=== PATIENT | female | born 1965 | race Caucasian/White ===

== ENCOUNTER 2024-07-28 08:54 | Outpatient (AMB) | payer OTHER, SELFPAY ==
--- NOTE | 2024-07-28 08:55 | A.OFFVIS_ITS ---
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 The patient did undergo left total knee replacement surgery in [place] approximately 2 years ago. She reports minimal discomfort in her right knee. She describes her left knee pain as sharp and severe in nature, 10/10. Her left knee pain has gotten worse over the last few years in spite of continued non operative treatments. She has tried Tylenol and anti-inflammatory medicines which gave her minimal relief. She has also had both cortisone and viscosupplementation injections which gave her only mild relief. The patient has difficulty walking even short distances because of her pain. At this point her right knee pain is interfering with her activities of daily living and her ability to sleep well through the night. Allergies sulfamethoxazole [From Bactrim] Allergy (Severe, Verified 07/28/24 09:21) Anaphylaxis trimethoprim [From Bactrim] Allergy (Severe, Verified 07/28/24 09:21) Anaphylaxis Penicillins Allergy (Unknown, Verified 07/28/24 09:21) Unknown gluten Adverse Reaction (Unknown, Verified 07/28/24 09:21) Unknown Medication List - Last Reconciled 07/29/24 by Bryn Amado MD acetaminophen ER (Tylenol Arthritis Pain) 650 mg PO Q12H albuterol sulfate 90 mcg/actuation inhalation amlodipine 2.5 mg PO DAILY estradiol 10 mcg vaginal 2XW gabapentin mg PO meloxicam 15 mg PO DAILY trazodone 50 mg PO BEDTIME valacyclovir mg PO Physical Exam Vital Signs: BMI result Body Mass Index 24.6 Const Other: Well-nourished well-developed very friendly female awake alert and oriented x3 in no acute distress Extrem Other: Bilateral lower extremity examination shows good capillary refill, no skin lesions noted, normal sensation light touch Right knee examination shows a minimal effusion, palpable crepitus with range of motion, pain with range of motion, range of motion from -3 degrees to 115 degrees, no instability Results Reviewed Results Reviewed: X-rays of the patient's right knee show end-stage degenerative joint disease with grade 4 dojd-ej-[id number] arthritis, subchondral sclerosis, osteophyte formation, no acute bony abnormalities Assessment & Plan Assessment & Plan (1) Arthritis of right knee: Code(s): M17.11 - Unilateral primary osteoarthritis, right knee Category: Medical Plan Presents with progressively worsening right knee pain due to end-stage degenerative joint disease. I had a lengthy discussion with the patient regarding the treatment options. At this point she has failed continued non operative treatments. The risks and benefits of right total knee replacement surgery were discussed at length with the patient. The patient is interested in proceeding with surgery. She will contact my office to pick a surgery date. I will see her back prior to her surgery to answer any final questions that she might have. She will call me prior to that time should any questions or concer ns arise. Mrs. Ugalde Orders: Orders XR knee RT 3V 07/28/24 M25.561 - Pain in right knee Coding Level of Care Code New Pt Level 3 (78219) Complex EM visit Add On G2211 Diagnoses Arthritis of right knee M17.11
[2024-07-28 09:22] VITALS: BMI 24.6
== END 2024-07-28 09:56 | disposition home or self-care (01) ==
PROVIDERS: Visit Provider Orthopaedic Surgery
DX: M17.11 Unilateral primary osteoarthritis, right knee (principal)
CPT/HCPCS: 99203; G2211

== ENCOUNTER 2024-07-28 10:07 | Outpatient (REF) | payer OTHER, SELFPAY ==
--- OUTSIDE RECORDS SUMMARY | 2024-07-29 10:11 | XMS_ITS | Continuity of Care Document ---
Author Organization [facility] Address [address] [place] [address]- Care Team Providers Care Dining Room Attendant Cafeteria Name Role Phone Oc De La O MD Primary Care Physician En[place] [facility] [place](s): 06/08/24 - 07/08/24 [facility] [address] [place], [place] [address] Encounter Type: Triage Allergies, Adverse Reactions, Alerts Substance Criticality Severity Reaction Reaction Severity Status penicillin Active Bactrim anaphylaxis type of reaction Active Glutens Active Immunizations Given and Recorded Vaccine Date Status Refusal Reason tetanus/diphtheria/pertussis, acel(Tdap) 1 03/31/24 Given influenza virus vaccine, inactivated 2 06/24/22 Gi wei influenza virus vaccine, inactivated 06/13/21 Arturo rded influenza virus vaccine, inactivated 3 06/12/20 Re corded influenza virus vaccine, inactivated 09/25/19 Arturo rded influenza virus vaccine, inactivated 4 06/04/18 Gi wei influenza virus vaccine, inactivated 08/19/17 Arturo rded influenza virus vaccine, inactivated 5 06/02/16 Gi wei influenza virus vaccine, inactivated 6 08/20/15 Gi wei influenza virus vaccine, inactivated 7 04/16/12 Gi wei influenza virus vaccine, inactivated 8 05/17/10 Gi wei [id number] bivalent booster vax 05/16/22 Recorded zoster vaccine, inactivated 10/08/21 Recorded zoster vaccine, inactivated 06/19/21 Recorded SARS-CoV-2 (COVID-19) mRNA-1273 vaccine 07/02/21 R ecorded SARS-CoV-2 (COVID-19) Ad26 vaccine 11/23/20 Record ed Tet/Diphth/Acel, Pertussis (oldterm) 10/27/13 Give n Typhim (oldterm) 10/27/13 Given Hepatitis A Vaccine (oldterm) 9 10/27/13 Given Hepatitis A Vaccine (oldterm) 10 06/17/00 Given diphtheria-tetanus toxoids (DT) 11 10/08/09 Given Influenza Vaccine (oldterm) 12 05/29/09 Given Influenza Virus Vaccine (oldterm) 13 07/21/08 Give n Influenza Inactive (IM) (oldterm) 07/15/07 Given tetanus-diphtheria toxoids (Td) 11/19/03 Given tetanus-diphtheria toxoids (Td) 06/17/00 Given 1Result Comment: [id number] given w/out incident 2Result Comment: [id number] given w/ out incident 3Result Comment: done @ [facility] 4Result Comment: [06/07/2018] given w/out incident [facility]: [id number] 5Result Comment: [06/02/2016] pt. tolerated inj. without complications...[place] 6Admin Note: done @ [facility], form received 7Admin Note: vis sheet given. 8Admin Note: done @ [facility] 9Admin Note: hep A #2 10Admin Note: hep A #1 11Admin Note: [facility] 12Admin Note: given w/o incident per dr de la o 13Admin Note: [facility] Medications acetaminophen 650 mg oral tablet, extended release 1 tablet = 650 mg, By Mouth, Every 8 hours, PRN Pain , Moderate, # 30 tablet, 0 Refills, Maintenance, 09/18/23 9:50:00 AM EST, ER Tablet, Partial fill upon patient request if the prescription is for a schedule II opioid drug. Start Date: 09/18/23 Stop Date: 09/28/23 Status: Ordered Quantity: 30.0 Unit: tablet Repeat number: 1 Albuterol (Eqv-ProAir HFA) 90 mcg/inh inhalation aerosol 2 puffs, Inhalation, 4 times a day, PRN NEEDED FOR WHEEZING, # 8.5 Gm, 5 Refills, Maintenance, 09/24/23 1:04:00 PM EST, [facility], 18, INHALE 2 PUFFS BY MOUTH FOUR TIMES A DAY NEEDED FOR WHEEZING, 169, cm, 09/18/23 9:43:00 EST, Height, 75.4, kg, 01/18/23 5:33:00 EDT, Dry Weight Start Date: 09/24/23 Status: Ordered Quantity: 8.5 Unit: g Repeat number: 1 amLODIPine 2.5 mg oral tablet 1 tablet, By Mouth, Daily, # 90 tablet, 1 Refills, Maintenance, 03/10/24 7:34:00 PM EDT, [facility] # [facility], 169, cm, 01/13/24 17:20:00 EDT, Height, 75.4, kg, 01/18/23 5:33:00 EDT, Dry Weight Start Date: 03/10/24 Stop Date: 09/06/24 Status: Ordered Quantity: 90.0 Unit: tablet Repeat number: 2 Centrum Silver Ultra Women's By Mouth, Daily, 0 Refills, Maintenance, 09/18/23 9:51:00 AM EST, Partial fill upon patient request if the prescription is for a schedule II opioid drug. Start Date: 09/18/23 Status: Ordered Repeat number: 1 estradiol 10 mcg vaginal tablet See Instructions, 1 tablet Vaginally twice a week, 0 Refills, Maintenance, 03/31/24 8:08:00 AM EDT, Partial fill upon patient request if the prescription is for a schedule II opioid drug. Start Date: 03/31/24 Status: Ordered Repeat number: 1 gabapentin 400 mg oral capsule 400 mg, 1, capsule, By Mouth, 2 times a day, # 60 capsule, Refills 0, Maintenance, 09/18/23 9:49:00 AM EST, Partial fill upon patient request if the prescription is for a schedule II opioid drug. Start Date: 09/18/23 Stop Date: 10/18/23 Status: Ordered Quantity: 60.0 Unit: capsule Repeat number: 1 Glucosamine Chondroitin Advanced oral tablet 0 Refills, Maintenance, 09/18/23 9:51:00 AM EST, Partial fill upon patient request if the prescription is for a schedule II opioid drug. Start Date: 09/18/23 Status: Ordered Repeat number: 1 meloxicam 15 mg oral tablet 1 tablet = 15 mg, By Mouth, Daily, with food, # 30 tablet, 0 Refills, Maintenance, 09/18/23 9:49:00 AM EST, Tablet, Partial fill upon patient request if the prescription is for a schedule II opioid drug. Start Date: 09/18/23 Stop Date: 10/18/23 Status: Ordered Quantity: 30.0 Unit: tablet Repeat number: 1 omeprazole 20 mg oral enteric coated capsule 1 capsule = 20 mg, By Mouth, 2 times a day, 30 min before a meal, # 60 capsule, 0 Refills, Maintenance, 03/16/23 7:26:00 PM EDT, Partial fill upon patient request if the prescription is for a scheduleII opioid drug. Start Date: 03/16/23 Status: Ordered Quantity: 60.0 Unit: capsule Repeat number: 1 traZODone 50 mg oral tablet 1, tablet, By Mouth, Daily at bedtime, # 90 tablet, Refills 1, Tot. Refills 1, Maintenance, 247:00:00 AM EDT, Route to Pharmacy Electronically, [facility] # [facility], 169, cm, 01/13/24 17:20:00 EDT, Height, 75.4, kg, 01/18/23 5:33:00 EDT, Dry Weight Start Date: 03/08/24 Status: Ordered Quantity: 90.0 Unit: tablet Repeat number: 2 Twinrix Preservative-Free 720 units-20 mcg/mL intramuscular suspension 1 mL, Intramuscular, Once, repeat in 7 and 21 days (accelerated regimen), # 1 each, 3 Refills, SoftStop, 04/04/24 12:40:00 PM EDT, Suspension, [facility] # [facility], Partial fill upon patient request if the prescription is for a schedule II opioid drug., 1 mL Intramuscular Once,Instr:repeat in 7 and 21 days (accelerated regimen), 169, cm, 03/31/24 8:05:00 EDT, Height, 73, kg, 03/31/24 8:05:00 EDT, Dry Weight Start Date: 04/04/24 Status: Ordered Quantity: 1.0 Unit: each Repeat number: 4 valACYclovir 500 mg oral tablet 1, tablet, By Mouth, Every 8 hours, # 15 tablet, Refills 6, Tot. Refills 6, Maintenance, 09/18/23 9:48:00 AM EST, Route to Pharmacy Electronically, [facility] # [facility], 169, cm, 09/18/23 9:43:00 EST, Height, 75.4, kg, 01/18/23 5:33:00 EDT, Dry Weight Start Date: 09/18/23 Stop Date: 10/23/23 Status: Ordered Quantity: 15.0 Unit: tablet Repeat number: 7 Vitamin B12 1000 mcg oral tablet 1 tablet = 1,000 mcg, By Mouth, Daily, # 30 tablet, 0 Refills, Maintenance, 03/31/24 8:07:00 AM EDT,Tablet, Partial fill upon patient request if the prescription is for a schedule II opioid drug. Start Date: 03/31/24 Status: Ordered Quantity: 30.0 Unit: tablet Repeat number: 1 Vitamin D3 1000 intl units oral capsule 1 capsule = 25 mcg, By Mouth, Daily, 0 Refills, Maintenance, 09/18/23 9:51:00 AM EST, Partial fill upon patient request if the prescription is for a schedule II opioid drug. Start Date: 09/18/23 Stop Date: 10/18/23 Status: Ordered Repeat number: 1 zinc (as acetate) 25 mg oral capsule 1 capsule = 25 mg, By Mouth, Daily, on an empty stomach 1 hour before or 2 hours after eating, # 30capsule, 0 Refills, Maintenance, 03/31/24 8:07:00 AM EDT, Capsule, Partial fill upon patient requestif the prescription is for a schedule II opioid drug. Start Date: 03/31/24 Stop Date: 04/30/24 Status: Ordered Quantity: 30.0 Unit: capsule Repeat number: 1 Problem List Condition Confirmation Course Effective Dates Status H ealth Status Informant Allergic rhinitis Confirmed Active Cervical spondylosis Confirmed Active Chronic eczema Confirmed 07/06/12 Active Chronic low back pain Confirmed Active ENDOMETRIOSIS Confirmed 06/2008 Active Essential hypertension Confirmed Active FH: Breast cancer (mom) Confirmed Active FH: Cancer (type ?) grandparents Confirmed Active FH: Diabetes mellitus (dad) Confirmed Active FH: Glaucoma (dad) Confirmed Active Generalized anxiety disorder Confirmed 2006 Active H/O cold sores Confirmed Active History of herpes labialis Confirmed Active History of arthroplasty of left knee Confirmed 01/06/23 Active Insomnia Confirmed Active Irritable bowel syndrome Confirmed Active Social History Social History Type Response Smoking Status Never (less than 100 in lifetime) entered on: 12/22/22 Sex Sex Representation Female (finding) Patient Care team information Care Team Personnel Name: Miguel Angel Townsend RN Position: [facility] RN Member Role: Primary Care Nurse Name: Oc De La O MD Position: [facility] Physician - Primary Care Member Role: PCP Address: [address] [place] [address] [facility] [address] Telecom: Name: Renetta Welch RN Position: [facility] RN Member Role: Primary Care Nurse Care Team Related Persons Name: ILYA NOVA Insurance Providers Guarantor name: MARYLOU NOVA Health Plan Information #: 1 Payer: [employer] Member Number: NA Policy Number: NA Group Number: [id number]
--- OUTSIDE RECORDS SUMMARY | 2024-07-29 10:11 | XMS_ITS ---
Author Organization [facility] Address [address] [place] [address] Care Team Providers Care Compensator Name Role Phone Oc Carvalho MD Primary Care Provider Clarissa Gomes [phone] REASON FOR VISIT buy [facility] #[phone] Encounters Encounter Location Date Provider Diagnosis [facility] [address] [place] [address] 08/06/2023 Clarissa Loyola Plan Of Treatment No Information Progress Notes * Lindsay UGALDEOB: 5 (58 yo F)Acc No.[id number]:08/06/2023 Patient:?Dayana Ugalde :1965???Age:58 Y???Sex:Female Address:[address] , [place], [address] * true * Date:? Generated for Printi cipriano/Joseluis/eTransmitting on:?07/29/2024 10:11 AM EST
--- OUTSIDE RECORDS SUMMARY | 2024-07-29 10:12 | XMS_ITS | Data Portability ---
Author Organization [facility], [facility] Address [address] [place] [address] Care Team Providers Care Integrated Program Teacher Name Role Phone FLORENCE WADDELL Primary Care Provider [phone] Assessment Encounter Date Assessment Date Assessment LastModified by Organization Details LastModified Time 07/05/2021 07/05/2021 Dayana is a 56-year-old female with bilateral knee arthritis. We discussed the diagnosis and treatment options. Interestingly most of her symptoms are laterally based and the majority of her arthritis is medially based. She does have some significant patellofemoral arthritis as well. We discussed the diagnosis and treatment options of her knee arthritis. She seems to be responding pretty well to nonoperative treatment. I delineated all this. She can continue nonoperative treatment for now. When she is ready for surgery she will call us to schedule that. She is planning to do some skiing this winter. She will follow-up with me on as-needed basis. Total visit time was 30 minutes in length including bjyb-ui-waal and abt-qhjt-pp-face time. [email or web address] Not available 07/05/2021 12:21:02 Plan of Treatment Reminders Order Date Submit Date Provider Last Modified By Organization Details Last Modified Time Details Appointments None record ed. Lab None record ed. Referral None record ed. Procedures None record ed. Surgeries None record ed. Imaging XR, knee, 3 view 021 07/05/20 21 [email or web address] Colon [facility], [address] [place] [address], [phone], 08:19:23 Medication Orders None record ed. Patient TargetsNo targets recorded. Patient InstructionsNo instructions recorded. Reason for Referral None Reported. Results Created Date Observation Date Name Description Value Unit Range Abnormal Flag Note LastModifiedBy Organization Detail LastModifiedTime 07/05/20 21 bilat knees No observ ation record ed. [email or web address] [facility] [address] [place], [address] 07/05/2021 12:03:03 07/05/20 21 XR, knee, 3 view No observ ation record ed. [email or web address] [address], [address], 07/05/2021 12:02:33 Result Notes None recorded. Procedures Surgical History Date Name Laterality Status Provider Name and Address Organization Details Recorded Time partial repair of rotator cuff completed Hawa Mosescristopher [facility] 07/05/2021 11:30:31 Knee Surgery completed Hawa Mosescristopher [facility] 07/05/2021 11:30:36 Imaging Results Imaging Date Name Status LastModified by Organiz ation Details LastModified Time 07/05/2021 bilat knees [email or web address] [address] [place], [address] 07/05/2021 12:03:03 07/05/2021 XR, knee, 3 view completed [email or web address] [address], [address], 07/05/2021 12:02:33 Procedure Notes None recorded. Medical Equipment None Reported. Allergies Allergen ID Allergen Name Allergen Category Reaction Reaction Severity Criticality Documentation Date Start Date Code Code System Note Provider Name and Address Organization Details Recorded Time penicilla mine medicatio n Not available Not available Not available 07/05/2021 7975 RxNorm Hawa Mosescristopher angeles [facility] 11:30:11 [id number] Substance with sulfonami de structure and antibacte rial mechanism of action (substanc e) medicatio n Not available Not available Not available 07/05/2021 35262 8003 SNOMED Hawa Mosescristopher ang[place] [facility] 11:30:14 Medications Name Sig Start Date Stop Date Status Note LastModified by Organization Details LastModified Time cyclobenzapri ne 10 mg tablet take 1 tablet by mouth twice a day if needed for muscle spasm 07/05 completed Not Available Not Available Not Available doxycycline hyclate 100 mg capsule active Not Available Not Available N ot Available trazodone 50 mg tablet 07/05 completed Not Available Not Available Not Available gabapentin 400 mg capsule active Not Available Not Available Not Available valacyclovir 500 mg tablet active Not Available Not Availabl e Not Available tramadol 50 mg tablet 07/05 completed Not Available Not Available Not Available omeprazole 20 mg capsule,delay ed release active Not Available Not Available N ot Available gabapentin 100 mg capsule active Not Available Not Available Not Available Vitals Date Recorded Body temperature Body height Body mass index (BMI) Body weight Provider Name and Address Organization Details Last Updated DateTime 07/05/2021 97 [degF] 170.18 cm 24.4 kg/m2 43391.41 g Hawa Amina [facility] 07/05/2021 11:29:57 Social History Question Answer Notes LastModified by Organizat ion Details LastModified Time Tobacco Smoking Status Never Smoker [facility] 07/05/2021 11:32:26 What Is Your Level Of Alcohol Consumption? Occasional Information not available 07/05/2021 Do You Use Any Illicit Or Recreational Drugs? No Information not available 07/05/2021 Has Tobacco Cessation Counseling Been Provided? No Information not available 07/05/2021 Do You Or Have You Ever Used Any Other Forms Of Tobacco Or Nicotine? No Information not available 07/05/2021 Sex: Unknown Functional Status None recorded. Mental Status None recorded. Family History Relationship Description Onset Age of this Age Resolved Age Notes LastModified by Organization Details LastModified Time Father No current problems or disability [email or web address] Not available 07/05 11:31:21 Mother No current problems or disability [email or web address] Not available 07/05 11:31:21 Medical History Condition Response Coronary Artery Disease N Dyslipidemia N Gout N Artificial Joints N Thyroid Problems N Lung Disease N Depression N Pacemaker N Anemia N Back Pain N Hearing Impairment N Anesthesia Complications N Heart Attack (OR) N Headaches/Migraines N Deep Vein Thrombosis N Anxiety Disorder N Diabetes N Bleeding Disorder N Arthritis N Seizures/Epilepsy N Cardiac Stent N Blood Clot N Tuberculosis N AIDS/HIV N Inflammatory Bowel Disease N Acid Reflux (GERD) N Cancer N Stroke N Substance Abuse N Peripheral Vascular Disease N Asthma/COPD N Wears Glasses/Contacts N Hepatitis N Heart Disease N Organ Transplant N Rheumatoid Arthritis N Pulmonary Embolism N Fibromyalgia N Hypertension N Stomach Ulcer N Osteoporosis N Kidney Disease N Gynecological HistoryNo gynecological history recorded. Obstetrics History GPAL:G 0 P 0 0 0 0 Immunizations Vaccine Type Date Status Note Provider Nam e and Address Organization Details Recorded Time COVID-19 vaccine, vector-nr, rS-ChAdOx1, PF, 0.5 mL 11/28/2020 completed Hawa Huynh [facility] 07/05/2021 11:31:34 Past Encounters Encounter ID Performer Location Encounter Start Date Encounter Closed Date Diagnosis/Indication Diagnosis SNOMED-CT Code Diagnosis ICD10 Code [id number] ERIKA NEWBERRY MD [address] [address] 07/05/2021 11:14:23 07/05/2021 12:35:58 Bilateral osteoarthritis of knees [id number] 05487 M17.0 Health Concerns Section Related Observation LastModified by Organization Detai ls LastModified Time None Recorded Concern Status LastModified by Organization Details LastModified Time None Recorded Advance Directives Directive None Recorded Payers Encounter Date Sequence Insurance Name Policy Number Policy Alston Covered Member ID Alston Member ID Guarantor Name 07/05/2021 1 [employer] (EPO) [id number] Dayana Ugalde [id number] Dayana Ugalde Notes Date Note Type Note Provider Name a nd Address Organization Details Recorded Time 07/05/2021 text/html Dayana is a 56-year-old female I am seeing for the first time. She is here for her bilateral knees. Right is greater than left. She has had a longstanding history of knee pain. She is being treated by orthopedic surgeon closer to her home. She been getting injections. She is having multiple rounds of both gel and cortisone. She is responded well to the Euflexxa. She had a Synvisc 1 injection which caused significant synovitis. She lost about 30 pounds over the past 2 years to help lessen the knee pain. She is taking Tylenol. She is using a brace. Most of her pain is on the lateral aspect of her knee. No real pain on the medial aspect of her knee. However she has responded well to intra-articular injections. She enjoys skiing. Clinical summary Working via [employer] Denies VTE Denies tobacco use Denies diabetes lives with her ARLENE NEWBERRY MD [address] [place] [address], [phone], [facility] 07/05/2021 12:22:44 OBGyn Episode No OBEpisode recorded.
--- OUTSIDE RECORDS SUMMARY | 2024-07-29 10:12 | XMS_ITS ---
[facility] Address [address] [place] [address] Care Team Providers Care Microwave Supervisor Name Role Phone Oc Carvalho MD Primary Care Provider Clarissa Gomes Unavailable [phone] Allergies Allergen (clinical drug ingredient) Drug/Non Drug Allergy documented on EMR Reaction Allergy Type Onset Date Status sulfamethoxazole / trimethoprim Bactrim throat closes Drug Allergy Active Penicillin Unknown Drug Allergy Active REASON FOR VISIT pt states last pcp visit 05/04/2023, Foot pain Medications Medication SIG (Take, Route, Frequency, Duration) Notes Start Date End Date Status amLODIPine Besylate 2.5 MG 1 tablet Orally Once a day Active Gabapentin 800 MG 1 capsule Orally Onc e a day Active traZODone HCl 50 MG 1 tablet at bedtime as needed Orally Once a day for 30 day(s) Active Aleve 220 MG Orally Not-Bull ing Pregabalin 75 MG 1 capsule Orally Twi ce a day Not-Taking Tylenol Active Meloxicam Active Social History Tobacco Use: Social History Observation Description Date Details (start date - stop date) Never Smoker NA - NA Tobacco Use/Smoking Question Answer Notes Are you a: nonsmoker Additional Findings: Tobacco Non-User Current no n-smoker Alcohol Screen Question Answer Notes Did you have a drink containing alcohol in the p ast year? Yes Points 0 Interpretation Negative Tobacco use other than smoking: Question Answer Notes Are you an other tobacco user? 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 Assessments Encounter Date Diagnosis (ICD Code) Assessment Notes Treatment Notes Treatment Clinical Notes Section Notes 08/06/2023 Anupam's neuroma of right foot (ICD-10 - G57.61) Plan Of Treatment Next Appt Details Follow Up: prn, Reason: Progress Notes * Lindsay UGALDEOB: 5 (58 yo F)Acc No.[id number]:08/06/2023 Progress Note Patient:?Dayana Ugalde Provider:?Clarissa Loyola DPM :1965???Age:58 Y???Sex:Female D ate:08/06/2023 Address:[facility] [address] [facility] Pcp:Oc Carvalho MD Subjective: * Chief Complaints: * ???Pt states last pcp visit 05/04/2023Foot pain * HPI: ???Foot Pain:?Nature:?burning, radiating, shooting, tingling.?Location:?Forefoot, RIGHT.?Duration:?several weeks.?Onset:?unknown.?Course:?resolved.?Aggrevated:?any pressure.?Treatments:?rest/alter normal daily activity, massage , padding.? * ROS:?General/Constitutional:?Nausea?denies.?Vomiting?denies.?Hunger Thirst?denies.?Loss appetite?denies.?Chills?denies.?Fatigue?denies.?Fever?denies.?Night Sweats?denies.?Unexplained weight loss?denies.?Unexplained weight gain?denies.?HEENTM:?Dentures?denies.?Dizziness?denies.?Glasses/contacts?admits.?Retinopathy?de nies.?Blurred/double vision?denies.?TMJ?denies.?Discharge/drainage?denies.?Implants?denies.?Sore throat?denies.?Dental implants?denies.?Hard of hearing ?denies.?Difficulty chewing/swallowing/speaking?denies.?Nose bleeds?denies.?Sore mouth?denies.?Respiratory:?On Oxygen?denies.?Pneumonia/pleurisy?denies.?Bronchitis?denies.?Emphysema?denies.?C oughing?denies.?Cough blood?denies.?Shortness of breath?denies.?Wheezing?denies.?Cardiovascular:?Pacemaker?denies.?MVP?denies.?WPW?denies.?CHF?denies.?Heart attack?denies.?Septal defect?denies.?Rapid beat?denies.?Chest pain ?denies.?Atrial Fib.?denies.?Murmur/Palpitations?denies.?Gastrointestinal:?Hemorrhoids?denies.?Stomach/Abdominal pain?denies.?Dark blood stool?denies.?Irritable bowel ?denies.?Constipation?denies.?Diarrhea?denies.?Hematology:?Swelling?denies.?Clots?denies.?Varicose Veins?denies.?Bruising?denies.?Bleeding problem?denies.?Genitourinary:?Blood urine?denies.?Frequent/Painfu/urination/bladder control?denies.?Kidney stones?denies.?Infection (UTI)?denies.?Nephropathy?denies.?sex trans dis (STD)?denies.?Prostate?denies.?Musculoskeletal:?Hammertoes?denies.?Bunions?denies.?Back Pain?admits.?Muscle Cramps/ Resting?denies.?Muscle cramps / walking?admits.?Generalized aches and pains?admits.?Weakness?denies.?Integ.:?Aguilar?denies.?Scars?denies.?Corns/calluses?denies.?Ingrown nails?denies.?Painful nails?denies.?Open Sores?denies.?Rashes?denies.?Neurologic:?Difficulty sleeping?admits.?Brain disorder?denies.?Numbness?admits.?Balance trouble?denies.?Confusion?denies.?Fainting/blackouts?denies.?Tingling?admits.?Tr emors?denies.? * Medical History:? * Surgical History:?left shoul mao rotator 4 yrs agoknee surgery, left 20 yrs agohysterectomy 2 yrs agoleft knee replacement 12/2022 * Hospitalization/Major Diagno stic Procedure:?No Hospitalization History. * Family History:?Mother: dece ased, foot problems, diagnosed with Family history of arthritis, Diabetic - NIDDM.?Father: , foot problems, diagnosed with Diabetic - NIDDM.?Spouse: alive.? * Social History:?Tobacco Use:?Tobacco Use/Smoking?Are you a:?nonsmoker ?Additional Findings: Tobacco Non-User?Current non-smoker ?Tobacco use other than smoking?Are you an other tobacco user??No ???Drugs/Alcohol:?Drugs?Have you used drugs other than those for medical reasons in the past 12 months??No ?Alcohol Screen?Did you have a drink containing alcohol in the past year??Yes ?Points?0 ?Interpretation?Negative ???Miscellaneous:?Caffeine: yes, frequency:, 1-2 cups per day. ?Exercise: yes, ski, hike, scuba dive, snow shoe, wake board. ?Marital status: . 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 * Medications:?TakingamLODIPin e Besylate 2.5 MG Tablet 1 tablet Orally Once a dayTylenol Meloxicam traZODone HCl 50 MG Tablet 1 tablet at bedtime as needed Orally Once a dayGabapentin 800 MG Tablet 1 capsule Orally Once a dayTaking amLODIPine Besylate 2.5 MG Tablet 1 tablet Orally Once a dayTaking Tylenol Taking Meloxicam Taking traZODone HCl 50 MG Tablet 1 tablet at bedtime as needed Orally Once a dayTaking Gabapentin 800 MG Tablet 1 capsule Orally Once a dayNot-Taking/PRNPregabalin 75 MG Capsule 1 capsule Orally Twice a dayAleve 220 MG Tablet Orally Medication List reviewed and reconciled with the patientNot- Taking/PRN Pregabalin 75 MG Capsule 1 capsule Orally Twice a dayNot-Taking/PRN Aleve 220 MG Tablet Orally Medication List reviewed and reconciled with the patient * Allergies:?Bactrim: throat c losesPenicillinyes[Allergies Verified] Objective: * Vitals:?Ht: 5 ft 7 in, Wt: 1 50, BMI:23.49, Shoe size: 9. * Examination: ???General Examination: ?GENERAL APPEARANCE:?Reveals a pleasant, alert, well-nourished, well- developed, well hydrated individual, who demonstrates proper attention to hygiene/body habitus, and is in no acute distress, Pt serves as own?historian for office visit today.?ORIENTED:?person, place, and time.?Neurological: ?SENSORY:?Neurological exam reveals intact sensorium, pain sensation normal, vibration sensation intact, pinprick sensation is normal in the lower extremities, Pt denies, anesthesia, burning, paresthesia, tingling, B/L.?DEEP TENDON REFLEXES:?Achilles, 2/4, B/L.?Vascular: ?DP PULSES:?3/4, B/L.?PT PULSES:?3/4, B/L.?CAPILLARY FILL TIME:?immediate, all digits, B/L.?SKIN TEMPERTURE GRADIENT OF THE LOWER EXTERMITIES:?warm to cool, proximal to distal, B/L.?HAIR GROWTH/TEXTURE/ELASTICITY/TURGOR:?normal, B/L.?PIGMENTATION:?normal, B/L.?EDEMA:?absent, B/L.?Dermatologic: ?SKIN FINDINGS:?Skin exam reveals normal texture, elasticity, and turgor. There are no masses. The interspaces are clear.?Orthopedic: ?MUSCLE STRENGTH:?5/5 all groups in a symmetrical fashion , B/L.?FOOTWEAR:?fair condition, OT were inspected and noted to be worn , in fair condition but giving proper support at the present time.?Neuroma Pain: ?PALPATION:?No Pain with direct palpation of the intermetatarsal space, No Pain with lateral compression of metatarsals, positive Sabra's click, 2nd interspace, 3rd interspace, RIGHT.? Assessment: * Assessment: 1.?Bo's neuroma of right foot - G57.61 (Primary), Acute problem, Uncomplicated (3)? Plan: * Treatment: * Procedure Codes:? * Preventive Medicine:? ??Counseling:?Discussion:?-13: Office or other outpatient visit for the evaluation and management of an established patient, which required a medically appropriate history and/or examination and LOW level of DECISION MAKING for: 1 STABLE ACUTE UNCOMPLICATED PROBLEM, 2 OR MORE MINOR PROBLEMS, OR 1 STABLE CHRONIC PROBLEM, THAT POSE(S) A LOW RISK FOR MORBIDITY/MORTALITY. The visit on the day of the encounter encompassed interpreting the data and educating the patient as to the nature of their condition, treatment options available according to their individual PMH, meds, allergies, and overall health/living conditions, as well as any potential risks or complications that may occur from a failure to adhere to, and participate in, the recommended course of therapy. The discussion included a complete verbal, and/or written explanation of the examination results, any x-rays taken, the proposed diagnosis, and outline of the treatment plan. A schedule for future care needs was also explained. The patient verbalized an understanding of the instructions at this time and agreed to be an active participant in their treatment. If the patient should think of any questions or concerns after the visit, I have encouraged the patient to call the office.?Neuroma:?The patient was counseled on the diagnosis, possible etiologies (including foot structure/foot function/nonsupportive shoes/activity), treatment options, and importance for adherence to recommendations regarding the treatment for a Neuroma. The advantages and disadvantages of the treatment options including medications available, forefoot offloading padding, mechanically accomidative orthotics, supportive shoegear with adequate forefoot width, cortisone injection(s), experimental sclerosis therapy, and surgical treatment options including nerve release, nerve relocation, and complete nerve removal were discussed in detail with each procedures outcomes and possible sequlea (i.e.failure of procedure, stump neuroma formation, infection, chronic scarring, chronic pain). Patient questions re: the potential successes of conservative vs surgical treatment options were reviewed and their answers were understood. The patient verbally confirmed a full understanding of the above.?Orthotics:?I explained to the patient the benefits of OT use. I explained that orthoses are medically necessary to decrease the foot pain through proper mechanical control, support of their foot.? * Follow Up:?prn * Images: * Sign off status: Completed true * Provider:?Clarissa Loyola DPM Date:? Generated for Sachin cota/Joseluis/Radha on:?07/29/2024 10:11 AM EST History and Physical Notes * HPI (History of Present Illness) Category Sub-Category Detail Notes Category Not es Foot Pain Nature: burning, radiating, shooting , tingling Location: Forefoot, RIGHT Duration: several weeks Onset: unknown Course: resolved Aggravated: any pressure Treatments: rest/alter normal da kan activity, massage , padding Examination Category Sub-Category Detail Notes Category Not es Neuroma Pain PALPATION: No Pain with dir ect palpation of the intermetatarsal space, No Pain with lateral compression of metatarsals, positive Sabra's click, 2nd interspace, 3rd interspace, RIGHT Neurological SENSORY: Neurological exa m reveals intact sensorium, pain sensation normal, vibration sensation intact, pinprick sensation is normal in the lower extremities, Pt denies, anesthesia, burning, paresthesia, tingling, B/L DEEP TENDON REFLEXES: Achilles, 2/4, B/L Dermatologic SKIN FINDINGS: Skin exam reveal s normal texture, elasticity, and turgor. There are no masses. The interspaces are clear Orthopedic FOOTWEAR: fair condition, OT were inspected and noted to be worn , in fair condition but giving proper support at the present time MUSCLE STRENGTH: 5/5 all groups in a symmetrical fashion , B/L General Examination GENERAL APPEARANCE: Reveals a pleasant, alert, well- nourished, well-developed, well hydrated individual, who demonstrates proper attention to hygiene/body habitus, and is in no acute distress, Pt serves as own historian for office visit today ORIENTED: person, place, and t beatriz Vascular DP PULSES(B): 3/4, B/L PT PULSES(B): 3/4, B/L CAPILLARY FILL TIME: immediate, all digi ts, B/L TEMPERTURE GRADIENT(C): warm to cool, pr oximal to distal, B/L TROPHIC CONDITION-TEXTURE/ELASTICITY/TURGOR/HAIR GROWTH(B): normal, B/L EDEMA(C): absent, B/L PIGMENTATION: normal, B/L
--- OUTSIDE RECORDS SUMMARY | 2024-07-29 10:12 | XMS_ITS | Patient Health Record ---
Author Organization [facility] Address [address] [facility] [place] [address] Care Team Providers Care Chief Of Surgery Name Role Phone Oc Carvalho MD Primary Care Provider Clarissa Gomes Unavailable [phone] Allergies Allergen (clinical drug ingredient) Drug/Non Drug Allergy documented on EMR Reaction Allergy Type Onset Date Status sulfamethoxazole / trimethoprim Bactrim throat closes Drug Allergy Active Penicillin Unknown Drug Allergy Active Reason For Referral No Information Medications Medication SIG (Take, Route, Frequency, Duration) Notes Start Date End Date Status Tylenol Active amLODIPine Besylate 2.5 MG 1 tablet Orally Once a day Active Meloxicam Active Gabapentin 800 MG 1 capsule Orally Onc e a day Active traZODone HCl 50 MG 1 tablet at bedtime as needed Orally Once a day for 30 day(s) Active Aleve 220 MG Orally Not-Bull ing Pregabalin 75 MG 1 capsule Orally Twi ce a day Not-Taking Social History Tobacco Use: Social History Observation [...] Are you an other tobacco user? 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) Active confirmed Vital Signs Height 5 ft 7 in in 08/06/2023 Weight 150 lbs 08/06/2023 BMI 23.49 kg/m2 08/06/2023 Encounters [facility]counter [facility] [address] [facility]23 Clarissa Loyola Bo's neuroma of right foot G57.61 [facility] [address] [place] [address] 08/06/2023 Clarissa Loyola Assessments Encounter Date Diagnosis (ICD Code) Assessment Notes Treatment Notes Treatment Clinical Notes Section Notes 08/06/2023 Bo's neuroma of right foot (ICD-10 - G57.61) Plan Of Treatment Pending Test Test Name Order Date X ray : Foot, right 3V 10/30/2020 00020, J0702- Neuroma/Injection 10/31/19 21 36525, J0702- Neuroma/Injection 03/05/20 17 22293, J0702- Neuroma/Injection 04/03/20 17 18283, J0702- Neuroma/Injection 01/22/20 18 Insurance Providers Payer Name Payer Address Payer Phone Subscriber Number Group Number Insured Name Patient Relationship to Insured Coverage Start Date Coverage End Date [employer] [address] [place] [phone] [id number] Dayana Ugalde Self - patient is the insured Medical (General) History Medical History History ICD Code Back,Hip,and Knee pain Sciatica chronic sinusitis Chicken pox Surgical History Surgery Date(Month/Year) left shoulder rotator 4 yrs ago knee surgery, left 20 yrs ago hysterectomy 2 yrs ago left knee replacement 12/2022
--- OUTSIDE RECORDS SUMMARY | 2024-07-29 10:12 | XMS_ITS | Data Portability ---
Author Organization [place] [facility] [place] Address [address] [place] [address] Assessment Encounter Date Assessment Date Assessment LastModified by Organization Details LastModified Time 06/28/2022 06/28/2022 *More than 50% of this 20 minute visit was spent removing the ring from patient's finger.* Not available 07/02/2022 13:09:24 08/30/2022 08/30/2022 Nursing note: Laceration was done just prior to arrival by a razor blade well trying to take a sticker off her car. Left thumb was soaked in warm soapy water for 15 minutes. Then dried and compression held to stop the bleeding. Dermabond was applied and dried. 1/4 steri strips applied for support and a bulky dressing with a thumb splint. Not available 09/03/2022 09:18:53 Plan of Treatment Reminders Order Date Submit Date Provider Last Modified By Organization Details Last Modified Time Details Appointments None recorded. Lab None recorded. Referral None recorded. Procedures None recorded. Surgeries None recorded. Imaging None recorded. Medication Orders doxycycline hyclate 100 mg tablet 2022 023 [email or web address] [id number], [address], [place], [id number], 3 09:18:37 Patient TargetsNo targets recorded. Patient InstructionsNo instructions recorded. Reason for Referral None Reported. Problems Name Problem SNOMED Code Status Onset Date Resolution Date Notes Provider Name and Address Organization Details Recorded Time Laceration of left thumb 2641120210412 9107 Active 2022 KHANH angeles, [facility] 08:53:47 Problem Notes None recorded. Procedures Surgical History Date Name Laterality Status Provider Name and Address Organization Details Recorded Time 01/14/202 3 Laceration repair with glue completed KHANH MOREAU [facility] 09/03/2022 09:02:21 Imaging Results None recorded. Procedure Notes None recorded. Medical Equipment None Reported. Allergies Allergen ID Allergen Name Allergen Category Reaction Reaction Severity Criticality Documentation Date Start Date Code Code System Note Provider Name and Address Organization Details Recorded Time 073533 Medicinal product containin g penicilli n and acting as antibacte rial agent (product) medicatio n abdominal pain Not available low 06/28/2022 23159 05 SNOMED KHANH angeles, [facility] 2 12:54:05 827772 Substance with sulfonami de structure and antibacte rial mechanism of action (substanc e) medicatio n anaphylax is Not available high 06/28/2022 82163 8003 SNOMED KHANH angeles, [facility] 2 12:54:24 Medications Name Sig Start Date Stop Date Status Note LastModified by Organization Details LastModified Time doxycycline hyclate 100 mg tablet Take 1 tablet twice a day by oral route as directed for 7 days. 2022 active Not Available Not Available Not Avai lable trazodone active Not Available Not Jocelyn ilable Not Available pregabalin active Not Available Not Av ailable Not Available Vitals Date Recorded Respiratory rate Heart rate Oxygen saturation Oxygen saturation in Arterial blood by Pulse oximetry Body height Body mass index (BMI) Body weight Body temperature Systolic blood pressure Diastolic blood pressure Provider Name and Address Organization Details Last Updated DateTime 2 16 /min 89 /min 97 % 97 % 170.18 cm 25.1 kg/m2 90613.7 8 g 97.6 [degF] 140 mm[Hg] 89 mm[Hg] Zoe Sutton RN [address] [place] [address], [phone], [facility] 2 12:37:24 Date Recorded Body height Body mass index (BMI) Body weight Heart rate Oxygen saturation Oxygen saturation in Arterial blood by Pulse oximetry Body temperature Provider Name and Address Organization Details Last Updated DateTime 3 170.18 cm 25.1 kg/m2 03359.7 8 g 90 /min 97 % 97 % 97.6 [degF] PARIS LUNA RN [facility] 14:57:23 Social History None recorded. Functional Status None recorded. Mental Status None recorded. Family History Nothing Reported. Medical History No medical history recorded. Gynecological HistoryNo gynecological history recorded. Obstetrics History GPAL:G 0 P 0 0 0 0 Immunizations Vaccine Type Date Status Note Provider Nam e and Address Organization Details Recorded Time Tdap 08/30/2022 completed KHANHBhumi angeles [facility] 09/03/2022 09:18:37 Past Encounters Encounter ID Performer Location Encounter Start Date Encounter Closed Date Diagnosis/Indication Diagnosis SNOMED-CT Code Diagnosis ICD10 Code [id number] [address] [address] 06/28/2022 11:52:24 06/28/2022 13:39:44 Foreign body - finger 869603284 S60.452A [id number] [address] [address] 08/30/2022 14:27:18 08/30/2022 15:11:15 Administration of diphtheria, pertussis, and tetanus vaccine 193158433 Z23 Laceration of left thumb 6424483599 6027047 S61.012A Health Concerns Section Related Observation LastModified by Organization Detai ls LastModified Time None Recorded Concern Status LastModified by Organization Details LastModified Time None Recorded Advance Directives Directive None Recorded Payers Encounter Date Sequence Insurance Name Policy Number Policy [place] Covered Member ID [place] Member ID Guarantor Name 06/28/2022 1 [employer] [place] [id number] Dayana Ugalde [id number] 1 Dayana Ugalde 08/30/2022 1 [employer] [id number] Dayana Ugalde [id number] 1 Dayana Ugalde Notes Date Note Type Note Provider Name and Address Organization Details Recorded Time 06/28/2022 text/html This is a 57 y/o female who presents with a metal ring stuck on her right long finger.She has been unable to get the ring off due to swelling. Now her finger is painful. This started this AM. She has applied ice and used soap to attempt to remove the ring.There is no associated color changes to the skin or numbness or tingling. KHANH angeles, [facility] 07/02/2022 13:20:30 08/30/2022 text/html This is a 57 y/o female who is accompanied by her . She presents with a laceration to her left thumb which occurred just prior to arrival when she was using a razor blade to remove a sticker from her car window and the razor blade slipped and cut her left thumb. She is unsure of the date of her last tetanus vaccine. Nursing note: Just prior to arrival was at the [facility] [place] trying to scrap the old sticker off her car with a razor blade and it slipped and cut her L thumb. I soaked the thumb in warm soapy water and then held pressure to stop the bleeding. KHANH angeles, [facility] 09/03/2022 09:20:44 OBGyn Episode No OBEpisode recorded.
== END 2024-07-28 10:08 | disposition home or self-care (01) ==
LOC: HO.HOSX 10:07
PROVIDERS: Visit Provider Orthopaedic Surgery
DX: Z13.89 Encounter for screening for other disorder (principal)

== ENCOUNTER 2024-10-13 09:21 | Outpatient (AMB) | payer OTHER, SELFPAY ==
--- NOTE | 2024-10-13 09:26 | MHC.OFFVIS ---
Vital Signs 10/13/24 09:29 Height 5 ft 7 in Weight 157 lb BMI 24.6 Intake Visit Reasons: Inj-R Knee Cortisone Inj Intake Note: Dayana is a 59 year old female who presents with complaints of progressively worsening right knee pain. She describes her pain as sharp in nature. She did have a viscosupplementation injection given into her right knee by another provider several months ago. She got only temporary relief from that injection. She has tried Tylenol and anti-inflammatory medicines which gave her only mild relief. She would like to hold off on total knee replacement surgery if at all possible. Allergies sulfamethoxazole [From Bactrim] Allergy (Severe, Verified 10/13/24 09:29) Anaphylaxis trimethoprim [From Bactrim] Allergy (Severe, Verified 10/13/24 09:29) Anaphylaxis Penicillins Allergy (Unknown, Verified 10/13/24 09:29) Unknown gluten Adverse Reaction (Unknown, Verified 10/13/24 09:29) Unknown Medication List - Last Reconciled 10/13/24 by Bryn Amado MD acetaminophen ER (Tylenol Arthritis Pain) 650 mg PO Q12H albuterol sulfate 90 mcg/actuation inhalation amlodipine 2.5 mg PO DAILY estradiol 10 mcg vaginal 2XW gabapentin mg PO meloxicam 15 mg PO DAILY PRN trazodone 50 mg PO BEDTIME valacyclovir mg PO Physical Exam Vital Signs: BMI result Body Mass Index 24.6 Const Other: Well-nourished well-developed very friendly female awake alert and oriented x3 in no acute distress Extrem Other: Right knee examination shows a minimal effusion, palpable crepitus with range of motion, pain with range of motion, no instability Office Procedures AMB Joint Injection/Aspiration Joint Injection/Aspiration Primary Site: right knee Prep: site was prepped using aseptic technique Injected: 40 mg of, DepoMedrol and 1% plain lidocaine Procedure: The patient tolerated the procedure well Coding 15130 - Large joint Procedure code (CPT) selection complete Results Reviewed Results Reviewed: X-rays of the patient's right knee taken previously show joint space narrowing, subchondral sclerosis, no acute bony abnormalities Assessment & Plan Assessment & Plan (1) Arthritis of right knee: Code(s): M17.11 - Unilateral primary osteoarthritis, right knee Category: Medical Plan Ms. Ugalde presents with right knee pain due to degenerative joint disease. The risks and benefits of a right knee cortisone injection were discussed at length with the patient. The patient wished to proceed. She tolerated the injection well. She will continue with her activity modifications. She will follow up with me on an as-needed basis should her symptoms not plateau at an unacceptable level over the next few months. Feel free to call me at any time should questions regarding her orthopedic management arise. I spent 20 minutes in reviewing the patient's records and imaging studies, seeing the patient and documenting in the medical record. Orders: Orders AMB Joint Injection/Aspiration Today M17.11 - Unilateral primary osteoarthritis, right knee Coding Level of Care Code Est Pt Level 3 (25996) Complex EM visit Add On G2211 Diagnoses Arthritis of right knee M17.11 CPT Codes Coding - 68821 Large joint: 10550 - Large joint ([id number])
[2024-10-13 09:29] VITALS: BMI 24.6
--- OUTSIDE RECORDS SUMMARY | 2024-10-13 10:15 | XMS_ITS ---
Author Organization [facility] Address [address] [place] [address] Care Team Providers Care Big Machine Consultant Name Role Phone Oc Carvalho MD Primary Care Provider Clarissa Gomes [phone] REASON FOR VISIT buy Ped OTs #39 - 9L Encounters Encounter Location Date Provider Diagnosis [facility] [address] [place] [address] 08/06/2023 Clarissa Loyola Plan Of Treatment No Information Progress Notes * Lindsay UGALDEOB: 5 (58 yo F)Acc No.[id number]:08/06/2023 Patient:?Dayana Ugalde :1965???Age:58 Y???Sex:Female Address:[address] , [place], [address] * true * Date:? Generated for Israeli cipriano/Joseluis/eTransmitting on:?10/13/2024 10:15 AM EST
--- OUTSIDE RECORDS SUMMARY | 2024-10-13 10:15 | XMS_ITS | Continuity of Care Document ---
Author Organization [facility] Address [address] [place] [address]- Care Team Providers Care Licensed Journeyman Electrician Name Role Phone Oc De La O MD Primary Care Physician Encounter [facility] Date(s): 08/22/24 - 09/21/24 [facility] [address] [place], [place] [address] Encounter Type: Triage Allergies, Adverse Reactions, Alerts Substance Criticality Severity Reaction Reaction Severity Status penicillin Active Bactrim anaphylaxis type of reaction Active Glutens Active Immunizations Given and Recorded Vaccine Date Status Refusal Reason influenza virus vaccine, inactivated 1 07/29/24 Gi wei influenza virus vaccine, inactivated 06/23/23 Arturo rded influenza virus vaccine, inactivated 2 06/24/22 Gi [...] virus vaccine, inactivated 8 05/17/10 Gi wei Hepatitis A-Hepatitis B Vaccine 05/06/24 Recorded Hepatitis A-Hepatitis B Vaccine 04/15/24 Recorded Hepatitis A-Hepatitis B Vaccine 04/08/24 Recorded Typhoid Vaccine, Inactivated 04/13/24 Recorded tetanus/diphtheria/pertussis, acel(Tdap) 9 03/31/24 Given SARS-CoV-2(COVID-19)mRNA-LNP vac(awq971) 09/25/23 Recorded [id number] bivalent booster vax 05/16/22 Recorded zoster vaccine, inactivated 10/08/21 Recorded zoster vaccine, inactivated 06/19/21 Recorded SARS-CoV-2 (COVID-19) mRNA-1273 vaccine 07/02/21 R ecorded SARS-CoV-2 (COVID-19) Ad26 vaccine 11/23/20 Record ed Tet/Diphth/Acel, Pertussis (oldterm) 10/27/13 Give n Typhim (oldterm) 10/27/13 Given Hepatitis A Vaccine (oldterm) 10 10/27/13 Given Hepatitis A Vaccine (oldterm) 11 06/17/00 Given diphtheria-tetanus toxoids (DT) 12 10/08/09 Given Influenza Vaccine (oldterm) 13 05/29/09 Given Influenza Virus Vaccine (oldterm) 14 07/21/08 Give n Influenza Inactive (IM) (oldterm) 07/15/07 Given tetanus-diphtheria toxoids (Td) 11/19/03 Given tetanus-diphtheria toxoids (Td) 06/17/00 Given 1Result Comment: [id number] given w/out incident 2Result Comment: [id number] given w/ out incident 3Result Comment: done @ [facility] 4Result Comment: [06/07/2018] given w/out incident [facility]: [id number] 5Result Comment: [06/02/2016] pt. tolerated inj. without complications...CO 6Admin Note: done @ [facility], form received 7Admin Note: vis sheet given. 8Admin Note: done @ [facility] 9Result Comment: [id number] given w/out incident 10Admin Note: hep A #2 11Admin Note: hep A #1 12Admin Note: [facility] 13Admin Note: given w/o incident per dr de la o 14Admin Note: san[employer]i Medications acetaminophen 650 mg oral [...] 5 Refills, Maintenance, 09/24/23 1:04:00 PM EST, [facility], 18, INHALE 2 PUFFS BY MOUTH FOUR TIMES A DAY NEEDED FOR WHEEZING, 169, cm, 09/18/23 9:43:00 EST, Height, 75.4, kg, 01/18/23 5:33:00 EDT, Dry Weight Start Date: 09/24/23 Status: Ordered Quantity: 8.5 Unit: g Repeat number: 1 amLODIPine 2.5 mg oral tablet 1 tablet, By Mouth, Daily, # 90 tablet, 1 Refills, Maintenance, 09/08/24 1:34:00 PM EST, [facility], 169, cm, 07/29/24 10:47:00 EST, Height, 73, kg, 03/31/24 8:05:00 EDT, Dry Weight Start Date: 09/08/24 Stop Date: 03/07/25 Status: Ordered Quantity: 90.0 Unit: tablet Repeat [...] 247:00:00 AM EDT, Route to Pharmacy Electronically, [facility], 169, cm, 01/13/24 17:20:00 EDT, Height, 75.4, kg, 01/18/23 5:33:00 EDT, Dry Weight Start Date: 03/08/24 Status: Ordered Quantity: 90.0 Unit: tablet Repeat number: 2 Twinrix Preservative-Free 720 units-20 mcg/mL intramuscular suspension 1 mL, Intramuscular, Once, repeat in 7 and 21 days (accelerated regimen), # 1 each, 3 Refills, SoftStop, 04/04/24 12:40:00 PM EDT, Suspension, [facility], Partial fill upon patient [...] 9:48:00 AM EST, Route to Pharmacy Electronically, [facility], 169, cm, 09/18/23 9:43:00 [...] Personnel Name: Miguel Angel Townsend RN Position: [facility] RN Member Role: Primary Care Nurse Name: Oc De La O MD Position: [facility] Physician - Primary Care Member Role: PCP Address: [address] [place] [address] [facility] [address] Telecom: Name: Renetta Welch RN Position: [facility] RN Member Role: Primary Care Nurse Care Team Related Persons Name: ILYA NOVA Insurance Providers Guarantor name: MARYLOU NOVA Health Plan Information #: 1 Payer: [employer] Member Number: NA Policy Number: NA Group Number: NA
--- OUTSIDE RECORDS SUMMARY | 2024-10-13 10:15 | XMS_ITS | Continuity of Care Document ---
Author Organization [facility] Address [address] [place] [address]- Care Team Providers Care Cad Draftsman Name Role Phone Oc De La O MD Primary Care Physician Encounter [facility] Date(s): 08/26/24 - 09/25/24 [facility] [address] [place], [place] [address] Encounter Type: Triage Allergies, Adverse Reactions, Alerts Substance Criticality Severity Reaction Reaction Severity Status penicillin Active Bactrim anaphylaxis type of reaction Active Glutens Active Immunizations Given and Recorded Vaccine Date Status Refusal Reason influenza virus vaccine, inactivated 1 07/29/24 Gi ewi influenza virus vaccine, inactivated 06/23/23 Arturo rded [...] Recorded tetanus/diphtheria/pertussis, acel(Tdap) 9 03/31/24 Given SARS-CoV-2(COVID-19)mRNA-LNP vac(xof190) 09/25/23 Recorded [id number] bivalent booster vax 05/16/22 Recorded zoster vaccine, [...] tetanus-diphtheria toxoids (Td) 06/17/00 Given 1Result Comment: [id number] given w/out incident 2Result Comment: [id number] given w/ out incident 3Result Comment: done @ [facility] 4Result Comment: [06/07/2018] given w/out incident [facility]: [id number] 5Result Comment: [06/02/2016] pt. tolerated inj. without complications...CO 6Admin Note: done @ [facility], form received 7Admin Note: vis sheet given. 8Admin Note: done @ [facility] 9Result Comment: [id number] given w/out incident 10Admin Note: hep A [...] 5 Refills, Maintenance, 09/24/23 1:04:00 PM EST, [facility], 18, INHALE 2 PUFFS BY MOUTH FOUR TIMES A DAY NEEDED FOR WHEEZING, 169, cm, 09/18/23 9:43:00 EST, Height, 75.4, kg, 01/18/23 5:33:00 EDT, Dry Weight Start Date: 09/24/23 Status: Ordered Quantity: 8.5 Unit: g Repeat number: 1 amLODIPine 2.5 mg oral tablet 1 tablet, By Mouth, Daily, # 90 tablet, 1 Refills, Maintenance, 09/08/24 1:34:00 PM EST, [facility], 169, cm, 07/29/24 10:47:00 [...] 247:00:00 AM EDT, Route to Pharmacy Electronically, [facility], 169, cm, 01/13/24 17:20:00 EDT, Height, 75.4, kg, 01/18/23 5:33:00 EDT, Dry Weight Start Date: 03/08/24 Status: Ordered Quantity: 90.0 Unit: tablet Repeat number: 2 Twinrix Preservative-Free 720 units-20 mcg/mL intramuscular suspension 1 mL, Intramuscular, Once, repeat in 7 and 21 days (accelerated regimen), # 1 each, 3 Refills, SoftStop, 04/04/24 12:40:00 PM EDT, Suspension, [facility], Partial fill upon [...] 9:48:00 AM EST, Route to Pharmacy Electronically, [facility], 169, cm, 09/18/23 9:43:00 [...] Personnel Name: Miguel Angel Townsend RN Position: [facility] RN Member Role: Primary Care Nurse Name: Oc De La O MD Position: [facility] Physician - Primary Care Member Role: PCP Address: [address] [place] [address] Adult [facility] Pediatric Medicine [address] Telecom: Name: Renetta Welch RN Position: [facility] RN Member Role: Primary Care Nurse Care Team Related Persons Name: ILYA NOVA Insurance Providers Guarantor name: MARYLOU NOVA Health Plan Information #: 1 Payer: [employer] Member Number: NA Policy Number: NA Group Number: NA
--- OUTSIDE RECORDS SUMMARY | 2024-10-13 10:15 | XMS_ITS | Continuity of Care Document ---
Author Organization [facility] Address [address] [place] [address]- Care Team Providers Care Automotive Upholsterer Name Role Phone Oc De La O MD Primary Care Physician Encounter [facility] Date(s): 09/08/24 - 10/08/24 [facility] [address] [place], [place] [address] Encounter Type: Triage Allergies, Adverse Reactions, [...] Recorded tetanus/diphtheria/pertussis, acel(Tdap) 9 03/31/24 Given SARS-CoV-2(COVID-19)mRNA-LNP vac(ruj235) 09/25/23 Recorded [id number] bivalent booster vax 05/16/22 Recorded zoster vaccine, [...] tetanus-diphtheria toxoids (Td) 06/17/00 Given 1Result Comment: [id number] given w/out incident 2Result Comment: [id number] given w/ out incident 3Result Comment: done @ [facility] 4Result Comment: [06/07/2018] given w/out incident [facility]: [id number] 5Result Comment: [06/02/2016] pt. tolerated inj. without complications...CO 6Admin Note: done @ [facility], form received 7Admin Note: vis sheet given. 8Admin Note: done @ [facility] 9Result Comment: [id number] given w/out incident 10Admin Note: hep A [...] 5 Refills, Maintenance, 09/24/23 1:04:00 PM EST, [facility], 18, INHALE 2 PUFFS BY MOUTH FOUR TIMES A DAY NEEDED FOR WHEEZING, 169, cm, 09/18/23 9:43:00 EST, Height, 75.4, kg, 01/18/23 5:33:00 EDT, Dry Weight Start Date: 09/24/23 Status: Ordered Quantity: 8.5 Unit: g Repeat number: 1 amLODIPine 2.5 mg oral tablet 1 tablet, By Mouth, Daily, # 90 tablet, 1 Refills, Maintenance, 09/08/24 1:34:00 PM EST, [facility], 169, cm, 07/29/24 10:47:00 [...] 247:00:00 AM EDT, Route to Pharmacy Electronically, [facility], 169, cm, 01/13/24 17:20:00 EDT, Height, 75.4, kg, 01/18/23 5:33:00 EDT, Dry Weight Start Date: 03/08/24 Status: Ordered Quantity: 90.0 Unit: tablet Repeat number: 2 Twinrix Preservative-Free 720 units-20 mcg/mL intramuscular suspension 1 mL, Intramuscular, Once, repeat in 7 and 21 days (accelerated regimen), # 1 each, 3 Refills, SoftStop, 04/04/24 12:40:00 PM EDT, Suspension, [facility], Partial fill [...] 9:48:00 AM EST, Route to Pharmacy Electronically, [facility], 169, cm, 09/18/23 9:43:00 [...] Personnel Name: Miguel Angel Townsend RN Position: [facility] RN Member Role: Primary Care Nurse Name: Oc De La O MD Position: [facility] Physician - Primary Care Member Role: PCP Address: [address] [place] [address] Adult & Pediatric Medicine [address] Telecom: Name: Renetta Welch RN Position: [facility] RN Member Role: Primary Care Nurse Care Team Related Persons Name: ILYA NOVA Insurance Providers Guarantor name: MARYLOU NOVA Health Plan Information #: 1 Payer: [employer] Member Number: NA Policy Number: NA Group Number: NA
--- OUTSIDE RECORDS SUMMARY | 2024-10-13 10:15 | XMS_ITS | Continuity of Care Document ---
Author Organization [facility] Address [address] [place] [address]- Care Team Providers Care Photocomposing Machine Operator Name Role Phone Oc De La O MD Primary Care Physician Encounter [facility] Date(s): 08/22/24 - 09/21/24 [facility] [address] [place], [place] [address] Encounter Type: Triage Allergies, Adverse Reactions, [...] Recorded tetanus/diphtheria/pertussis, acel(Tdap) 9 03/31/24 Given SARS-CoV-2(COVID-19)mRNA-LNP vac(hbh472) 09/25/23 Recorded [id number] bivalent booster vax 05/16/22 Recorded zoster vaccine, [...] tetanus-diphtheria toxoids (Td) 06/17/00 Given 1Result Comment: [id number] given w/out incident 2Result Comment: [id number] given w/ out incident 3Result Comment: done @ [facility] 4Result Comment: [06/07/2018] given w/out incident [facility]: [id number] 5Result Comment: [06/02/2016] pt. tolerated inj. without complications...CO 6Admin Note: done @ [facility], form received 7Admin Note: vis sheet given. 8Admin Note: done @ [facility] 9Result Comment: [id number] given w/out incident 10Admin Note: hep A [...] 5 Refills, Maintenance, 09/24/23 1:04:00 PM EST, [facility], 18, INHALE 2 PUFFS BY MOUTH FOUR TIMES A DAY NEEDED FOR WHEEZING, 169, cm, 09/18/23 9:43:00 EST, Height, 75.4, kg, 01/18/23 5:33:00 EDT, Dry Weight Start Date: 09/24/23 Status: Ordered Quantity: 8.5 Unit: g Repeat number: 1 amLODIPine 2.5 mg oral tablet 1 tablet, By Mouth, Daily, # 90 tablet, 1 Refills, Maintenance, 09/08/24 1:34:00 PM EST, [facility], 169, cm, 07/29/24 10:47:00 [...] 247:00:00 AM EDT, Route to Pharmacy Electronically, [facility], 169, cm, 01/13/24 17:20:00 EDT, Height, 75.4, kg, 01/18/23 5:33:00 EDT, Dry Weight Start Date: 03/08/24 Status: Ordered Quantity: 90.0 Unit: tablet Repeat number: 2 Twinrix Preservative-Free 720 units-20 mcg/mL intramuscular suspension 1 mL, Intramuscular, Once, repeat in 7 and 21 days (accelerated regimen), # 1 each, 3 Refills, SoftStop, 04/04/24 12:40:00 PM EDT, Suspension, [facility], Partial fill upon [...] 9:48:00 AM EST, Route to Pharmacy Electronically, [facility], 169, cm, 09/18/23 9:43:00 [...] Personnel Name: Miguel Angel Townsend RN Position: [facility] RN Member Role: Primary Care Nurse Name: Oc De La O MD Position: [facility] Physician - Primary Care Member Role: PCP Address: [address] [place] [address] Adult & Pediatric Medicine [address] Telecom: Name: Renetta Welch RN Position: [facility] RN Member Role: Primary Care Nurse Care Team Related Persons Name: ILYA NOVA Insurance Providers Guarantor name: MARYLOU NOVA Health Plan Information #: 1 Payer: [employer] Member Number: NA Policy Number: NA Group Number: NA
--- OUTSIDE RECORDS SUMMARY | 2024-10-13 10:15 | XMS_ITS | Patient Health Record ---
Author Organization [facility] Address [address] 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 Plan Of Treatment Pending Test Test Name Order Date X ray : Foot, right 3V 10/30/2020 51297, J0702- Neuroma/Injection 10/31/19 21 87001, J0702- Neuroma/Injection 03/05/20 64665, J0702- Neuroma/Injection 04/03/20 17 41678, J0702- Neuroma/Injection 01/22/20 18 Insurance Providers Payer Name Payer Address Payer Phone Subscriber Number Group Number Insured Name Patient Relationship to Insured Coverage Start Date Coverage End Date [employer] [address] [place] [address] [id number] Dayana Ugalde Self - patient is the insured Medical (General) History Medical History History ICD Code Back,Hip,and Knee pain Sciatica chronic sinusitis Chicken pox Surgical History Surgery Date(Month/Year) left shoulder rotator 4 yrs ago knee surgery, left 20 yrs ago hysterectomy 2 yrs ago left knee replacement 12/2022
--- OUTSIDE RECORDS SUMMARY | 2024-10-13 10:15 | XMS_ITS | Data Portability ---
Author Organization [place] - [facility] [place] Address [address] [place] [address] Assessment Encounter Date Assessment Date Assessment LastModified [...] mg tablet 2022 023 [email or web address] [id number], [address] [place], [place], [phone], 3 09:18:37 Patient TargetsNo targets recorded. Patient InstructionsNo instructions recorded. Reason for Referral None Reported. Problems Name Problem SNOMED Code Status Onset Date Resolution Date Notes Provider Name and Address Organization Details Recorded Time Laceration of left thumb 7351395222843 9107 Active 2022 KHANH angeles, [facility] 08:53:47 Problem Notes None recorded. Procedures Surgical History Date Name Laterality Status Provider Name and Address Organization Details Recorded Time 01/14/202 3 Laceration repair with glue completed KHANH MOREAU [facility] 09/03/2022 09:02:21 Imaging Results None recorded. Procedure Notes None recorded. Medical Equipment None Reported. Allergies Allergen ID Allergen Name Allergen Category Reaction Reaction Severity Criticality Documentation Date Start Date Code Code System Note Provider Name and Address Organization Details Recorded Time 490127 Product containin g penicilli n (product) medicatio n abdominal pain Not available low 06/28/2022 63014 8001 SNOMED KHANH MOREAU [facility] 2 12:54:05 164537 Substance with sulfonami de structure and antibacte rial mechanism of action (substanc e) medicatio n anaphylax is Not available high 06/28/2022 28119 8003 SNOMED KHANH angeles, [facility] 12:54:24 Medications Name Sig Start Date Stop [...] % 97 % 170.18 cm 25.1 kg/m2 74336.7 8 g 97.6 [degF] 140 mm[Hg] 89 mm[Hg] Zoe Sutton RN [address] [place] [address], [phone], [facility] 2 12:37:24 Date Recorded Body height Body mass index (BMI) Body weight Heart rate Oxygen saturation Oxygen saturation in Arterial blood by Pulse oximetry Body temperature Provider Name and Address Organization Details Last Updated DateTime 3 170.18 cm 25.1 kg/m2 68785.7 8 g 90 /min 97 % 97 % 97.6 [degF] PARIS LUNA RN [facility] 14:57:23 Social History None recorded. Functional Status None recorded. Mental Status None recorded. Family History Nothing Reported. Medical History No medical history recorded. Gynecological HistoryNo gynecological history recorded. Obstetrics History GPAL:G 0 P 0 0 0 0 Immunizations Vaccine Type Date Status Note Provider Rod gonzalez and Address Organization Details Recorded Time Tdap 08/30/2022 completed KHANH angeles [facility] 09/03/2022 09:18:37 Past Encounters Encounter ID Performer Location Encounter Start Date Encounter Closed Date Diagnosis/Indication Diagnosis SNOMED-CT Code Diagnosis ICD10 Code Diagnosis Note [id number] [address] [address] 06/28/2022 11:52:24 06/28/2022 13:39:44 Foreign body - finger 517044224 S60.452A RIGHT MIDDLE FINGERI was able to remove the metal ring off of her swollen finger using a ribbon tourniquet and mineral oil using the string wrap technique. Skin is intact without injury.Rin g placed in a sterile cup and handed to patient.Mi ddle finger is neurovascu larly intact with rapid capillary refill.Adv ised to elevate injured area often if swelling persists (swelling has already improved after ring was removed).I advised Dayana that pain and swelling should be completely resolved before they return to wearing rings on the affected finger.All questions answered.P atient expressed understand ing of treatment plan and guidelines for follow up care.Patie nt left in a comfortabl e mood. [id number] [address] [address] 08/30/2022 14:27:18 08/30/2022 15:11:15 Administration of diphtheria, pertussis, and tetanus vaccine 177903428 Z23 Laceration of left thumb 3045280339 6322120 S61.012A Advised to keep wound clean and dry for the next 24 hours. After 24 hours, may get wound wet. Recommend daily wound care including washing area with gentle soap and water, applicatio n of antibiotic ointment and clean dressing. Advised not to soak wound. Dayana is traveling to [facility] in 2 days.Discu ssed signs of infection including fever, redness, swelling, and/or purulent drainage (pus). I will prescribe Doxycyclin e which she will fill and take with her to [place]. I advised her to start Doxycyclin e if any of these symptoms develop. Advised to take antibiotic with food. Reviewed that this medication makes you more sensitive to the sun. Advised to stay out of the sun and wear sun protection and hats to avoid a sunburn.Al l questions answered.P atient expressed understand ing of treatment plan and guidelines for follow up care. Health Concerns Section Related Observation LastModified by Organization Detai ls LastModified Time None Recorded Concern Status LastModified by Organization Details LastModified Time None Recorded Advance Directives Directive None Recorded Payers Encounter Date Sequence Insurance Name Policy Number Policy Alston Covered Member ID Alston Member ID Guarantor Name 06/28/2022 1 MARJORIE [id number] Dayana Ugalde [id number] 1 Dayana Ugalde 08/30/2022 1 MARJORIE [id number] Dayana Ugalde [id number] 1 Dayana Ugalde Notes Date Note Type [...] to the skin or numbness or tingling. MURPHY Hein - [facility] 07/02/2022 13:20:30 08/30/2022 text/html This is a [...] Just prior to arrival was at the [facility] trying to scrap the old sticker off her car with a razor blade and it slipped and cut her L thumb. I soaked the thumb in warm soapy water and then held pressure to stop the bleeding. KHANH PRIETO null, [facility] 09/03/2022 09:20:44 OBGyn Episode No OBEpisode recorded.
--- OUTSIDE RECORDS SUMMARY | 2024-10-13 10:16 | XMS_ITS ---
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 ?Marital status: . 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 * Medications:?TakingamLODIPin e Besylate 2.5 MG Tablet [...] Loyola DPM Date:? Generated for Sachin cota/Joseluis/Radha on:?10/13/2024 10:15 AM EST History and Physical Notes * [...] person, place, and t beatriz [facility] DP PULSES (B): 3/4, B/L PT PULSES (B): 3/4, B/L CAPILLARY FILL TIME: immediate, all digi ts, B/L TEMPERTURE GRADIENT (C): warm to cool, p roximal to distal, B/L TROPHIC CONDITION-TEXTURE/ELASTICITY/TURGOR/HAIR GROWTH (B): normal, B/L EDEMA (C): absent, B/L PIGMENTATION: normal, B/L
--- OUTSIDE RECORDS SUMMARY | 2024-10-13 10:16 | XMS_ITS | Clinical Summary ---
Author Organization [facility] Address [address] [place] [address] Care Team Providers Care Food Checker Name Role Phone No, Pcp VINEGAR MAKER Primary Care Provider Unavailabl e Social History Tobacco Use Types Packs/Day Years Used Date Smoking Tobacco: Never Assessed Comments Unknown Sex and Gender Information Value Date Recorded Sex Assigned at Not on file Legal Sex Female 10:31 AM EDT Gender Identity Not on file Sexual Orientation Not on file Plan of Treatment Health Maintenance Due Date Last Done Comments Colorectal Cancer: COLONOSCO PY Screening every 10 yrs (or Modifier) 1965 Depression: Screening Annual ly using PHQ-2/9 in Adults 18 yrs or above (or HM Modifier)([facility]) 1983 Hepatitis C Virus Infection in Adolescents and Adults: Screening (or Modifier) ([facility]) 1983 [facility] Screening Reminder: Ronna daniels for all adults ([facility]) 1983 Tobacco Smoking Cessation: i n Adults excluding Women: Behavioral and Pharmacotherapy Interventions ([facility]) 1983 DTaP/Tdap/Td Vaccines ([facility]) (1 - Tdap) 1984 Cervical Cancer Screenin 1-65 yrs of age (or Modifier) 1986 Cervical Cancer Screening: P ap every 3 yrs pts age 21-65 1986 Cervical Cancer: Pap Screeni ng with Modifier timing ([facility]) 1986 Cervical Cancer: hrHPV alone or with cotesting Pap for Pts 30-65yrs screening every 5yrs ([facility]) 1986 Colorectal Cancer Screening 45 -75 Yrs (or HM Modifier) 2010 Colorectal Cancer: FLEXIBLE SIGMOIDOSCOPY Screening every 5 yrs 2010 Colorectal Cancer: Fecal Immunochemical Test (FIT) Annually [facility] 2010 Colorectal Cancer: High-sens itivity gFOBT Screening Annually [facility] 2010 Colorectal Cancer: Stool Col oguard Screening every 3 yrs 2010 Colorectal Cancer:CT Colonog jm Screening every 5 yrs 2010 Lipid Screening: Every 5 yrs for Women aged 45+ (or HM Modifier) ([facility]) 2011 Breast Cancer: Screening Ronna ually age 50-74 yrs (or HM Modifier)([facility]) 2015 Zoster/Shingles Vaccine Seri es Screening: Adults aged 18+ yrs (or HM Modifiers)([facility]) (1 of 2) 2015 Flu Vaccination: Yearly for ages 18mos through 64 years (or Modifier)([facility]) 03/17/2024 COVID-19 Vaccine Screening: Initial Series and Booster Status ([facility]) (2023- season) 2024 Pneumococcal Vaccination Scr eening: Pts 0-19 & 19-64 yrs of age ([facility]) Aged Out No longer eligible based on patient's age to complete this topic Medical Devices Not on file Care Teams Food Checker Relationship Specialty Start Date End Date No, Pcp, VINEGAR MAKER N/A Do not use PCP - General Family Medicine 02/15/20
--- OUTSIDE RECORDS SUMMARY | 2024-10-13 10:16 | XMS_ITS | Data Portability ---
Author Organization [place] - [facility], DESTINI [facility] Address [address] [place] [address] Care Team Providers Care Supervisor Costuming Name Role Phone FLORENCE WADDELL Primary Care Provider Assessment Encounter Date Assessment Date Assessment LastModified [...] time was 30 minutes in length including nzax-me-ewyt and qwc-vhik-re-face time. [email or web address] Not available 07/05/2021 12:21:02 Plan of Treatment Reminders Order Date Submit Date Provider Last Modified By Organization Details Last Modified Time Details Appointments None record ed. Lab None record ed. Referral None record ed. Procedures None record ed. Surgeries None record ed. Imaging XR, knee, 3 view 021 07/05/20 21 [email or web address] Colon [facility], [address] [place] [address], [phone], 08:19:23 Medication Orders None record ed. Patient TargetsNo targets recorded. Patient InstructionsNo instructions recorded. Reason for Referral None Reported. Results Created Date Observation Date Name Description Value Unit Range Abnormal Flag Note LastModifiedBy Organization Detail LastModifiedTime 07/05/20 21 bilat knees No observ ation record ed. [email or web address] [address] [place], [address] 07/05/2021 12:03:03 07/05/20 21 XR, knee, 3 view No observ ation record ed. [email or web address] [address], [address], 07/05/2021 12:02:33 Result Notes None recorded. Procedures Surgical History Date Name Laterality Status Provider Name and Address Organization Details Recorded Time partial repair of rotator cuff completed Hawa Mosescristopher [facility] 07/05/2021 11:30:31 Knee Surgery completed Hawa Mosescristopher [facility] 07/05/2021 11:30:36 Imaging Results Imaging Date Name Status LastModified by Organiz ation Details LastModified Time 07/05/2021 bilat knees completed [email or web address] [facility] [address] [place], [address] 07/05/2021 12:03:03 07/05/2021 XR, knee, 3 view completed [email or web address] [address], [address], 07/05/2021 12:02:33 Procedure Notes None recorded. Medical Equipment None Reported. Allergies Allergen ID Allergen Name Allergen Category Reaction Reaction Severity Criticality Documentation Date Start Date Code Code System Note Provider Name and Address Organization Details Recorded Time penicilla mine medicatio n Not available Not available Not available 07/05/2021 7975 RxNorm Hawa Mosescristopher angeles [facility] 11:30:11 405360 Substance with sulfonami de structure and antibacte rial mechanism of action (substanc e) medicatio n Not available Not available Not available 07/05/2021 72702 8003 SNOMED Hawa Mosescristopher angeles [facility] 11:30:14 Medications Name [...] height Body mass index (BMI) Body weight Pain severity - 0-10 verbal numeric rating [Score] - Reported Provider Name and Address Organization Details Last Updated DateTime 07/05/2021 97 [degF] 170.18 cm 24.4 kg/m2 72764.4 1 g 3 Hawa Huynh [facility] 11:30:03 Social History Question Answer Notes LastModified by Organizat ion Details LastModified Time Tobacco Smoking Status Never Smoker Hawamakenzie Aranakyra angeles [facility] 07/05/2021 11:32:26 What [...] Impairment N Anesthesia Complications N Heart Attack ([place]) N Headaches/Migraines N Deep Vein Thrombosis N Diabetes N Anxiety Disorder N Bleeding Disorder N Seizures/Epilepsy N Arthritis N Cardiac Stent N Blood Clot N Tuberculosis N AIDS/HIV N Inflammatory Bowel Disease N Acid Reflux (GERD) N Cancer N Stroke N Substance Abuse N Peripheral Vascular Disease N Asthma/COPD N Wears Glasses/Contacts N Hepatitis N Organ Transplant N Heart Disease N Rheumatoid Arthritis N Pulmonary Embolism N Fibromyalgia N Stomach Ulcer N Hypertension N Osteoporosis N Kidney Disease N Gynecological HistoryNo gynecological history recorded. Obstetrics History GPAL:G 0 P 0 0 0 0 Immunizations Vaccine Type Date Status Note Provider Nam e and Address Organization Details Recorded Time COVID-19 vaccine, vector-nr, rS-ChAdOx1, PF, 0.5 mL 11/28/2020 completed Hawa Huynh [facility] 07/05/2021 11:31:34 Past Encounters Encounter ID Performer Location Encounter Start Date Encounter Closed Date Diagnosis/Indication Diagnosis SNOMED-CT Code Diagnosis ICD10 Code Diagnosis Note [id number] ERIKA NEWBERRY MD [address] [address] 07/05/2021 11:14:23 07/05/2021 12:35:58 Bilateral osteoarthritis of knees [id number] 76955 M17.0 Health Concerns Section Related Observation LastModified by Organization Detai ls LastModified Time None Recorded Concern Status LastModified by Organization Details LastModified Time None Recorded Advance Directives Directive None Recorded Payers Encounter Date Sequence Insurance Name Policy Number Policy Alston Covered Member ID Alston Member ID Guarantor Name 07/05/2021 1 [employer] (EPO) [id number] Dayana Ugalde [id number] Dayana Ugalde Notes Date Note Type [...] She enjoys skiing. Clinical summary Working via [employer] Denies VTE Denies tobacco use Denies diabetes lives with her ARLENE NEWBERRY MD [address] [place] [address], [phone], [facility] - [facility] 07/05/2021 12:22:44 OBGyn Episode No OBEpisode recorded.
== END 2024-10-13 09:52 | disposition home or self-care (01) ==
PROVIDERS: PCP Internal Medicine; Visit Provider Orthopaedic Surgery
DX: M17.11 Unilateral primary osteoarthritis, right knee (principal)
CPT/HCPCS: 20610; 99213

== ENCOUNTER → 2024-10-13 09:21 | Outpatient (BNVA) | payer OTHER, SELFPAY | PROVIDERS: PCP Internal Medicine; Visit Provider Orthopaedic Surgery | DX: M17.11 Unilateral primary osteoarthritis, right knee (principal) | CPT/HCPCS: 20610; J1010; J2003 ==

== ENCOUNTER → 2024-12-26 08:36 | Outpatient (BNVA) | payer OTHER, SELFPAY | PROVIDERS: PCP Internal Medicine | DX: Z01.818 Encounter for other preprocedural examination (principal) ==

== ENCOUNTER 2025-01-19 07:07 | Outpatient (REF) | payer OTHER, SELFPAY ==
--- NOTE | ~2025-01-19 | XR_ITS ---
CLINICAL HISTORY: Right knee pain, s p left TKA 3 view right knee 3 view left knee Comparison: None Findings: Right knee: No acute fracture or dislocation. Small suprapatellar joint effusion. Moderate narrowing and degenerative spurring in the patellofemoral joint and medial joint compartment. Probable 9 mm loose body in the anterior joint space. No radiopaque foreign body. Left knee: Total knee arthroplasty and patellar resurfacing with intact hardware. No evidence for loosening or infection. No acute fracture or dislocation. Tiny suprapatellar joint effusion. Probable 5 mm loose ossific body in the posterior joint space. IMPRESSION: 1. Right knee: Small joint effusion. No acute fracture or dislocation. Moderate arthritic changes. 2. Left knee: Tiny joint effusion. No acute fracture, dislocation or hardware complications. This document has been electronically signed by: Dee Suarez DO on 01/19/2025 14:20:45
--- OUTSIDE RECORDS SUMMARY | 2025-01-19 07:11 | XMS_ITS | Data Portability ---
Author Organization [place] - [facility] [place] Address [address] [place] [address] Assessment Encounter Date Assessment Date Assessment LastModified [...] mg tablet 2022 023 [email or web address] [id number], [address] [place], [place], [phone], 3 09:18:37 Patient TargetsNo targets recorded. Patient InstructionsNo instructions recorded. Reason for Referral None Reported. Problems Name Problem SNOMED Code Status Onset Date Resolution Date Notes Provider Name and Address Organization Details Recorded Time Laceration of left thumb 3155766726383 9107 Active 2022 KHANH angeles, [facility] 08:53:47 Problem Notes None recorded. Procedures Surgical History Date Name Laterality Status Provider Name and Address Organization Details Recorded Time 01/14/202 3 Laceration repair with glue completed KHANH MOREAU [facility] 09/03/2022 09:02:21 Imaging Results None recorded. Procedure Notes None recorded. Medical Equipment None Reported. Allergies Allergen ID Allergen Name Allergen Category Reaction Reaction Severity Criticality Documentation Date Start Date Code Code System Note Provider Name and Address Organization Details Recorded Time 598803 Product containin g penicilli n (product) medicatio n abdominal pain Not available low 06/28/2022 48283 8001 SNOMED KHANH MOREAU [facility] 2 12:54:05 497021 Substance with sulfonami de structure and antibacte rial mechanism of action (substanc e) medicatio n anaphylax is Not available high 06/28/2022 86153 8003 SNOMED KHANH angeles, [facility] 2 12:54:24 Medications Name Sig Start Date [...] Av ailable Not Available Vitals Date Recorded Body height Body mass index (BMI) Body weight Heart rate Oxygen saturation Oxygen saturation in Arterial blood by Pulse oximetry Body temperature Provider Name and Address Organization Details Last Updated DateTime 3 170.18 cm 25.1 kg/m2 06371.7 8 g 90 /min 97 % 97 % 97.6 [degF] PARIS LUNA RN [facility] 3 14:57:23 Date Recorded Respiratory rate Heart rate Oxygen saturation Oxygen saturation in Arterial blood by Pulse oximetry Body height Body mass index (BMI) Body weight Body temperature Systolic blood pressure Diastolic blood pressure Provider Name and Address Organization Details Last Updated DateTime 2 16 /min 89 /min 97 % 97 % 170.18 cm 25.1 kg/m2 04117.7 8 g 97.6 [degF] 140 mm[Hg] 89 mm[Hg] Zoe Sutton RN [address] [place] [address], [phone], [facility] 12:37:24 Social History None recorded. Functional Status None recorded. Mental Status None recorded. Family History Nothing Reported. Medical History No medical history recorded. Gynecological HistoryNo gynecological history recorded. Obstetrics History GPAL:G 0 P 0 0 0 0 Immunizations Vaccine Type Date Status Note Provider Rod gonzalez and Address Organization Details Recorded Time Tdap 08/30/2022 completed KHANH MOREAU null, [facility] 09/03/2022 09:18:37 Past Encounters Encounter ID Performer Location Encounter Start Date Encounter Closed Date Diagnosis/Indication Diagnosis SNOMED-CT Code Diagnosis ICD10 Code Diagnosis Note [id number] Khanh [place] [address] 06/28/2022 11:52:24 06/28/2022 13:39:44 Foreign body - finger 190275445 S60.452A RIGHT MIDDLE FINGERI was able to [...] nt left in a comfortabl e mood. [id number] Khanh [place] [address] 08/30/2022 14:27:18 08/30/2022 15:11:15 Administration of diphtheria, pertussis, and tetanus vaccine 276539310 Z23 Laceration of left thumb 9059692322 3989624 S61.012A Advised to keep wound clean and dry for the next 24 hours. After 24 hours, may get wound wet. Recommend daily wound care including washing area with gentle soap and water, applicatio n of antibiotic ointment and clean dressing. Advised not to soak wound. Dayana is traveling to [facility] in 2 days.Discu ssed signs of infection including fever, redness, swelling, and/or purulent drainage (pus). I will prescribe Doxycyclin e which she will fill and take with her to [place]. I advised her to start Doxycyclin e [...] Alston Member ID Guarantor Name 06/28/2022 1 AENA [id number] Dayana Ugalde [id number] 1 Dayana Ugalde 08/30/2022 1 AENA [id number] Dayana Ugalde [id number] 1 Dayana Ugalde Notes Date Note Type [...] the skin or numbness or tingling. KHANH angeles [facility] 07/02/2022 13:20:30 08/30/2022 text/html This [...] Just prior to arrival was at the [facility] trying to scrap the old sticker off her car with a razor blade and it slipped and cut her L thumb. I soaked the thumb in warm soapy water and then held pressure to stop the bleeding. KHANH angeles, [place] - [facility] 09/03/2022 09:20:44 OBGyn Episode No OBEpisode recorded.
== END 2025-01-19 07:08 | disposition home or self-care (01) ==
LOC: HO.HOSX 07:07
PROVIDERS: Visit Provider Orthopaedic Surgery
DX: M17.11 Unilateral primary osteoarthritis, right knee (principal); Z96.652 Presence of left artificial knee joint
CPT/HCPCS: 73562

== ENCOUNTER 2025-01-19 07:44 | Outpatient (AMB) | payer OTHER, SELFPAY ==
--- NOTE | 2025-01-19 07:55 | A.OFFVIS_ITS ---
Vital Signs 01/19/25 08:02 Height 5 ft 7 in Weight 157 lb BMI 24.6 Intake Visit Reasons: Pre-Op: R TKA w/ 01/23/25 Intake Note: Dayana is a 59 year old female who presents with complaints of progressively worsening right knee pain. She describes her pain as sharp and severe in nature. Her pain has gotten worse over the last few years in spite of continued non operative treatments. She has had injections in the past. The most recent injection gave her minimal relief. She has also tried Tylenol and anti- inflammatory medicines which gave her only mild relief. The patient has difficulty walking even short distances because of her pain. She did undergo left total knee replacement surgery by another surgeon approximately 3 years ago. She reports minimal discomfort in her left knee. At this point her right knee pain is interfering with her activities of daily living and her ability to sleep well through the night. Allergies sulfamethoxazole [From Bactrim] Allergy (Severe, Verified 01/19/25 08:01) Anaphylaxis trimethoprim [From Bactrim] Allergy (Severe, Verified 01/19/25 08:01) Anaphylaxis Penicillins Allergy (Unknown, Verified 01/19/25 08:01) Unknown Sulfa (Sulfonamide Antibiotics) Allergy (Verified 01/19/25 08:01) Anaphylaxis gluten Adverse Reaction (Unknown, Verified 01/19/25 08:01) Unknown Medication List - Last Reconciled 01/19/25 by Bryn Amado MD acetaminophen ER (Tylenol Arthritis Pain) 650 mg PO Q12H PRN albuterol sulfate 90 mcg/actuation 2 puffs inhalation Q6-8H PRN amlodipine 2.5 mg PO DAILY cholecalciferol (vitamin D3) (Vitamin D3) 25 mcg PO DAILY clindamycin HCl 600 mg (2 x 300 mg) PO ONCE cyanocobalamin (vitamin B-12) (Vitamin B-12) 1,000 mcg PO DAILY estradiol 10 mcg vaginal 2XW gabapentin 400 mg PO BID tbsnlshhfys-aassseipl-mhf C-Mn 500-400 mg (Glucosamine Chondroitin Maximum Strength) 1 cap PO DAILY meloxicam 15 mg PO DAILY PRN ycrmmuhc-jhd-aldk-FA-vit K-lut 8 mg iron-400 mcg-50 mcg (Centrum Silver Women) 1 tab PO DAILY omeprazole 20 mg PO BID PRN trazodone 25 mg PO BEDTIME valacyclovir 500 mg PO TID PRN walker Folding front wheeled walker zinc acetate 25 mg PO DAILY PFSH Medical History (Updated 01/19/25 @ 08:05 by Bryn Amado MD) Osteoarthritis GERD (gastroesophageal reflux disease) Jaundice SOB (shortness of breath) Prophylactic antibiotic IBS (irritable bowel syndrome) Insomnia Hx of cold sores Generalized anxiety disorder HTN (hypertension) Endometriosis Back pain Chronic eczema Cervical spondylosis Allergic rhinitis Surgical History (Updated 01/19/25 @ 07:08 by Bryn Amado MD) History of arthroscopy of right shoulder (~2022) Hx of rotator cuff surgery History of partial hysterectomy H/O colonoscopy Hx of total knee arthroplasty Social History Are you a primary acute care nursing assistant to a significant other at home: No Do you presently have visiting nurse or other home services: No Patient Tobacco Use Status: Never used Tobacco Physical Exam Vital Signs: BMI result Body Mass Index 24.6 Const Other: Well-nourished well-developed very friendly female awake alert and oriented x3 in no acute distress Extrem Other: Bilateral lower extremity examination shows good capillary refill, no skin lesions noted, normal sensation light touch Right knee examination shows a minimal effusion, palpable crepitus with range of motion, pain with range of motion, range of motion from -3 degrees to 115 degrees, no instability Results Reviewed Results Reviewed: X-rays of the patient's right knee show end-stage degenerative joint disease with grade 4 ijjh-er-strj arthritis, subchondral sclerosis, no acute bony abnormalities X-rays of the patient's left knee show a total knee arthroplasty in good position with no signs of loosening, no acute bony abnormalities Assessment & Plan Assessment & Plan (1) Arthritis of right knee: Code(s): M17.11 - Unilateral primary osteoarthritis, right knee Category: Medical Plan Ms. Ugalde presents with progressively worsening right knee pain due to end-stage degenerative joint disease. I had a lengthy discussion with the patient regarding the treatment options. At this point she has failed continued non operative treatments. The risks and benefits of right total knee replacement surgery were discussed at length with the patient. The patient wishes to proceed with surgery. business services sales agent will be consulted following her surgery for home physical therapy and nursing. The patient will follow-up as ins tructed. Feel free to call me at any time should questions regarding her orthopedic management arise. I spent 21 minutes in reviewing the patient's records and imaging studies, seeing the patient and documenting in the medical record. Orders: Orders Hemoglobin A1c Today Z01.818 - Encounter for other preprocedural examination XR knee RT 3V Today M17.11 - Unilateral primary osteoarthritis, right knee XR Knee Shahab 3V Today M17.11 - Unilateral primary osteoarthritis, right knee, Z96.652 - Presence of left artificial knee joint Type and Screen Today Z01.818 - Encounter for other preprocedural examination Coding Level of Care Code Est Pt Level 3 (65255) Complex EM visit Add On G2211 Diagnoses Arthritis of right knee M17.11
[2025-01-19 08:02] VITALS: BMI 24.6
== END 2025-01-19 08:26 | disposition home or self-care (01) ==
LOC: HO.HOS 07:45
PROVIDERS: PCP Internal Medicine; Visit Provider Orthopaedic Surgery
DX: M17.11 Unilateral primary osteoarthritis, right knee (principal)
CPT/HCPCS: 99214; G2211

== ENCOUNTER → 2025-01-19 07:46 | Outpatient (BNV) | payer OTHER, SELFPAY | PROVIDERS: Visit Provider Radiology Diagnostic Radiology | DX: M25.561 Pain in right knee (principal); M25.562 Pain in left knee | CPT/HCPCS: 73562 ==

== ENCOUNTER 2025-01-23 05:59 | Day surgery (SDC) | payer OTHER, SELFPAY ==
[2024-12-26 10:24] VITALS: BP 132/75; PULSE 70; RESP 18; O2SAT 96; BMI 26.6
[2024-12-26 11:46] LABS: Hematocrit 41.6 % (37.0-47.0); Hemoglobin 13.9 g/dl (12.0-16.0); Mean Corpuscular HGB Conc 33.4 g/dl (31.0-35.0); Mean Corpuscular Hemoglobin 32.2 pg (27.0-33.0); Mean Corpuscular Volume 96.3 fL (80.0-98.0); Mean Platelet Volume 9.3 fL (9.4-12.3); Platelet Count 251 X10*3/uL (160-400); Red Blood Count 4.32 X10*6/uL (4.20-5.50); Red Cell Distribution Width 11.7 % (11.0-16.0); White Blood Count 5.7 X10*3/uL (4.8-10.8)
[2024-12-26 11:52] LABS: INTERNATIONAL NORM RATIO 0.8 (0.9-1.1); Prothrombin Time 9.4 SEC (10.9-12.4)
[2024-12-26 11:55] LABS: Partial Thromboplastin Time 30.6 SEC (26.0-36.8)
[2024-12-26 12:47] LABS: MRSA Nasal PCR NEGATIVE (Negative); SA Nasal PCR NEGATIVE (Negative)
[2024-12-26 13:43] LABS: Alanine Aminotransferase 26 U/L (0-31); Albumin Level 4.5 g/dL (3.5-5.0); Anion Gap 13 (12-20); Aspartate Amino Transferase 31 U/L (5-31); Bilirubin Total 0.6 mg/dL (0.0-1.0); Blood Urea Nitrogen 21 mg/dL (9-16); Calcium 9.8 mg/dL (8.4-10.2); Carbon Dioxide 23 mmol/L (22-29); Chloride 108 mmol/L (96-108); Creatinine Clr Calc Pharmacy 58.4; Estimated Glomerular Filt Rate 50; Glucose Random 92 mg/dL (60-115); Potassium 4.6 mmol/L (3.3-5.1); Sodium 139 mmol/L (135-145); Total Protein 7.1 g/dL (6.5-8.0)
[2024-12-26 15:18] LABS: Alkaline Phosphatase 93 U/L (39-117)
[2025-01-19 09:11] LABS: Hematocrit 39.5 % (37.0-47.0); Hemoglobin 13.8 g/dl (12.0-16.0); Mean Corpuscular HGB Conc 34.9 g/dl (31.0-35.0); Mean Corpuscular Hemoglobin 32.6 pg (27.0-33.0); Mean Corpuscular Volume 93.4 fL (80.0-98.0); Mean Platelet Volume 9.2 fL (9.4-12.3); Platelet Count 302 X10*3/uL (160-400); Red Blood Count 4.23 X10*6/uL (4.20-5.50); Red Cell Distribution Width 11.4 % (11.0-16.0); White Blood Count 5.6 X10*3/uL (4.8-10.8)
[2025-01-19 09:16] LABS: Estimated Average Glucose 94 mg/dL; Hemoglobin A1C 109.6652 umol/L; Hemoglobin A1c % 4.9 % (<6.0); Total Hemoglobin (HGBA1C) 3637.2737 umol/L
[2025-01-19 09:48] LABS: Anion Gap 11 (12-20); Blood Urea Nitrogen 15 mg/dL (9-16); Calcium 9.6 mg/dL (8.4-10.2); Carbon Dioxide 23 mmol/L (22-29); Chloride 112 mmol/L (96-108); Creatinine Clr Calc Pharmacy 77.2; Estimated Glomerular Filt Rate > 60; Glucose Random 82 mg/dL (60-115); Potassium 4.5 mmol/L (3.3-5.1); Sodium 141 mmol/L (135-145)
[2025-01-23] VITALS (9 sets, daily range): BP systolic 89–137; BP diastolic 52–81; PULSE 68–80; RESP 12–16; TEMP 36.2–36.8; O2SAT 94–97; BMI 25.3; BMI 27.6
[2025-01-23] MEDS: Lactated Ringers 1,000 ML 100 ML IVCONT ×3 (06:54→23:10)
--- NOTE | 2025-01-23 07:25 | HO.ANESPROP2 ---
Documented by User: Sheryl Paz NP 01/19/25 14:55 HPI - Anesthesia Eval Consult details Narrative: 59yo F for Right Knee Replacement Total, 01/23/25 Medically optimized per [facility] (consider stress dose steroids d/t 5 day course of prednisone 5mg 10/2024, cspine precautions for airway management d/t degenerative disc disease in cspine noted in 2019 MRI) No recent illness No CP/SOB with exercise hiking GERD: ppi prn covers Post op jaundice after TKA 2022 - found to have gallstone post op PMFSH Active Problems Active Problems: All Active Problems S/P total knee arthroplasty (Acute) Arthritis of right knee (Acute) Right knee pain (Acute) Past Medical History Medical History (Updated 01/23/25 @ 06:27 by Coleen Antoine RN) Asthma Osteoarthritis GERD (gastroesophageal reflux disease) Jaundice SOB (shortness of breath) Prophylactic antibiotic IBS (irritable bowel syndrome) Insomnia Hx of cold sores Generalized anxiety disorder HTN (hypertension) Endometriosis Back pain Chronic eczema Cervical spondylosis Allergic rhinitis Family History Family history of problems with anesthesia: No Surgical History Surgical History History of arthroscopy of right shoulder (~2022) Hx of rotator cuff surgery History of partial hysterectomy H/O colonoscopy Hx of total knee arthroplasty History of Problems with Anesthesia: No Social History Social History Are you a primary healthcare administration intern to a significant other at home: No Do you presently have visiting nurse or other home services: No Patient Tobacco Use Status: Never used Tobacco Use of substances other than those prescribed or required for medical reasons: Yes Substance Use Type Other:: CBD Substance Use Frequency: Daily Have you been hit, kicked, punched, or otherwise hurt by someone within the past year? If so, by whom?: No Are you DNR?: No Advance Directives: No Advance Directives Information Provided: Yes Advance Directives on File: No Patient : No : No Poor oral hygiene: No Meds Allergies Allergy/AdvReac Type Severity Reaction Status Date / Time Sulfa (Sulfonamide Allergy Severe Anaphylaxis Verified 01/23/25 06:26 Antibiotics) sulfamethoxazole Allergy Severe Anaphylaxis Verified 01/23/25 06:26 [From Bactrim] trimethoprim [From Bactrim] Allergy Severe Anaphylaxis Verified 01/23/25 06:26 Penicillins Allergy Unknown Childhood Verified 01/23/25 06:26 allergy, GI Upset gluten AdvReac Mild Rash Verified 01/23/25 06:26 Home Medications ?Medication ?Instructions ?Recorded ?Confirmed ?Last Taken ?Type acetaminophen 650 mg 650 mg PO Q12H PRN Pain 07/28/24 01/23/25 Unknown History tablet,extended release (Tylenol Arthritis Pain) albuterol sulfate 90 mcg/actuation 2 puff inhalation Q6-8H PRN 07/28/24 01/23/25 Unknown History aerosol inhaler Shortness Of Breath Or Wheezing amlodipine 2.5 mg tablet 2.5 mg PO DAILY 07/28/24 01/23/25 01/23/25 History estradiol 10 mcg vaginal tablet 10 mcg vaginal 2XW 07/28/24 01/23/25 01/16/25 History gabapentin 100 mg capsule 400 mg PO BID 07/28/24 01/23/25 01/23/25 History trazodone 50 mg tablet 25 mg PO BEDTIME 07/28/24 01/23/25 01/22/25 History valacyclovir 500 mg tablet 500 mg PO TID PRN Cold Sores 07/28/24 01/23/25 Unknown History cholecalciferol (vitamin D3) 25 25 mcg PO DAILY 12/23/24 01/23/25 01/16/25 History mcg (1,000 unit) tablet (Vitamin D3) cyanocobalamin (vitamin B-12) 1,000 mcg PO DAILY 12/23/24 01/23/25 01/16/25 History 1,000 mcg tablet (Vitamin B-12) hjbjfsyikkc-bnkdihxut-bvx C-Mn 500 1 cap PO DAILY 12/23/24 01/23/25 01/16/25 History mg-400 mg capsule (Glucosamine Chondroitin Maximum Strength) blvjvntl-fdli-tnaq 8 mg-folic 400 1 tab PO DAILY 12/23/24 01/23/25 01/16/25 History mcg-K 50 mcg-lutein 300 mcg tablet (Centrum Silver Women) omeprazole 20 mg tablet,delayed 20 mg PO BID PRN Acid Reflux 12/23/24 01/23/25 Unknown History release zinc acetate 25 mg (zinc) capsule 25 mg PO DAILY 12/23/24 01/23/25 01/16/25 History clindamycin HCl 300 mg capsule 600 mg PO ONCE PRN before dental 01/23/25 01/23/25 Unknown History work Exam Height,Weight and Vital Signs: Height 5 ft 7 in Weight 77.111 kg Last Vital Signs Pulse 70 12/26/24 10:24 Resp 18 12/26/24 10:24 BP 132/75 12/26/24 10:24 Pulse Ox 96 12/26/24 10:24 O2 Del Method Room Air 12/26/24 10:24 Pertinent Lab Results Pertinent Lab Results: Lab Results 12/26/24 12/26/24 01/19/25 Range/Units 10:30 11:10 08:44 WBC 5.7 5.6 (4.8-10.8) X10*3/uL RBC 4.32 4.23 (4.20-5.50) X10*6/uL Hgb 13.9 13.8 (12.0-16.0) g/dl Hct 41.6 39.5 (37.0-47.0) % MCV 96.3 93.4 (80.0-98.0) fL MCH 32.2 32.6 (27.0-33.0) pg MCHC 33.4 34.9 (31.0-35.0) g/dl RDW 11.7 11.4 (11.0-16.0) % Plt Count 251 302 (160-400) X10*3/uL MPV 9.3 L 9.2 L (9.4-12.3) fL Absolute Nucleated RBC 0.000 0.000 (0.0-0.012) X10*3/uL Nucleated RBC % (auto) 0.0 0.0 (0.0-0.2) /100WBC PT 9.4 L (10.9-12.4) SEC INR 0.8 L (0.9-1.1) APTT 30.6 (26.0-36.8) SEC Sodium 139 141 (135-145) mmol/L Potassium 4.6 4.5 (3.3-5.1) mmol/L Chloride 108 112 H (96-108) mmol/L Carbon Dioxide 23 23 (22-29) mmol/L Anion Gap 13 11 L (12-20) BUN 21 H 15 (9-16) mg/dL Creatinine 1.11 0.84 (0.5-1.4) mg/dL Estim Creat Clear Calc 58.4 77.2 Estimated GFR 50 > 60 Random Glucose 92 82 (60-115) mg/dL Estimat Average Glucose 94 mg/dL Hemoglobin A1c % 4.9 (<6.0) % Calcium 9.8 9.6 (8.4-10.2) mg/dL Total Bilirubin 0.6 (0.0-1.0) mg/dL AST 31 (5-31) U/L ALT 26 (0-31) U/L Alkaline Phosphatase 93 (39-117) U/L Total Protein 7.1 (6.5-8.0) g/dL Albumin 4.5 (3.5-5.0) g/dL Nasal Screen MRSA (PCR) NEGATIVE (Negative) Nasal S. aureus Screen NEGATIVE (Negative) Nasal MRSA/S.aureus Interp SEE NOTE Blood Type Antibody Screen 01/19/25 Range/Units 08:45 WBC (4.8-10.8) X10*3/uL RBC (4.20-5.50) X10*6/uL Hgb (12.0-16.0) g/dl Hct (37.0-47.0) % MCV (80.0-98.0) fL MCH (27.0-33.0) pg MCHC (31.0-35.0) g/dl RDW (11.0-16.0) % Plt Count (160-400) X10*3/uL MPV (9.4-12.3) fL Absolute Nucleated RBC (0.0-0.012) X10*3/uL Nucleated RBC % (auto) (0.0-0.2) /100WBC PT (10.9-12.4) SEC INR (0.9-1.1) APTT (26.0-36.8) SEC Sodium (135-145) mmol/L Potassium (3.3-5.1) mmol/L Chloride (96-108) mmol/L Carbon Dioxide (22-29) mmol/L Anion Gap (12-20) BUN (9-16) mg/dL Creatinine (0.5-1.4) mg/dL Estim Creat Clear Calc Estimated GFR Random Glucose (60-115) mg/dL Estimat Average Glucose mg/dL Hemoglobin A1c % (<6.0) % Calcium (8.4-10.2) mg/dL Total Bilirubin (0.0-1.0) mg/dL AST (5-31) U/L ALT (0-31) U/L Alkaline Phosphatase (39-117) U/L Total Protein (6.5-8.0) g/dL Albumin (3.5-5.0) g/dL Nasal Screen MRSA (PCR) (Negative) Nasal S. aureus Screen (Negative) Nasal MRSA/S.aureus Interp Blood Type A Negative Antibody Screen NEGATIVE Narrative Narrative: EKG 12/2024 Ventricular Rate: 70 BPM Atrial Rate: 70 BPM P-R Interval: 174 ms QRS Duration: 72 ms Q-T Interval: 390 ms QTC Calculation(Bazett): 421 ms P [place]: 39 degrees R [place]: 13 degrees T [place]: 53 degrees Normal sinus rhythm Normal ECG When compared with ECG of 22-Dec-2022 11:47, No significant change was found Confirmed by LANDON PADILLA MD ([id number]) on 12/29/2024 2:14:04 PM Airway TM Dist: >3cm Neck ROM: Full Loose/Missing/Broken Teeth: No Heart: RRR Lungs: CTAB Assessment and Plan Assessment Anesthesia Assessment: Anesthesia Plan Discussed and PAT Visit Final Anesthetic Review Family History of Problems with Anesthesia: No History of Problems with Anesthesia: No Documented by User: Zoe Mesa DO 01/23/25 08:19 [facility] Past Medical History Medical History (Updated 01/23/25 @ 06:27 by Coleen Antoine RN) Asthma Osteoarthritis GERD (gastroesophageal reflux disease) Jaundice SOB (shortness of breath) Prophylactic antibiotic IBS (irritable bowel syndrome) Insomnia Hx of cold sores Generalized anxiety disorder HTN (hypertension) Endometriosis Back pain Chronic eczema Cervical spondylosis Allergic rhinitis Family History Family history of problems with anesthesia: No Surgical History Surgical History History of arthroscopy of right shoulder (~2022) Hx of rotator cuff surgery History of partial hysterectomy H/O colonoscopy Hx of total knee arthroplasty History of Problems with Anesthesia: No Social History Social History Are you a primary healthcare administration intern to a significant other at home: No Do you presently have visiting nurse or other home services: No Patient Tobacco Use Status: Never used Tobacco Use of substances other than those prescribed or required for medical reasons: Yes Substance Use Type Other:: CBD Substance Use Frequency: Daily Have you been hit, kicked, punched, or otherwise hurt by someone within the past year? If so, by whom?: No Are you DNR?: No Advance Directives: No Advance Directives Information Provided: Yes Advance Directives on File: No Patient : No : No Poor oral hygiene: No Meds Allergies Allergy/AdvReac Type Severity Reaction Status Date / Time Sulfa (Sulfonamide Allergy Severe Anaphylaxis Verified 01/23/25 06:26 Antibiotics) sulfamethoxazole Allergy Severe Anaphylaxis Verified 01/23/25 06:26 [From Bactrim] trimethoprim [From Bactrim] Allergy Severe Anaphylaxis Verified 01/23/25 06:26 Penicillins Allergy Unknown Childhood Verified 01/23/25 06:26 allergy, GI Upset gluten AdvReac Mild Rash Verified 01/23/25 06:26 Home Medications ?Medication ?Instructions ?Recorded ?Confirmed ?Last Taken ?Type acetaminophen 650 mg 650 mg PO Q12H PRN Pain 07/28/24 01/23/25 Unknown History tablet,extended release (Tylenol Arthritis Pain) albuterol sulfate 90 mcg/actuation 2 puff inhalation Q6-8H PRN 07/28/24 01/23/25 Unknown History aerosol inhaler Shortness Of Breath Or Wheezing amlodipine 2.5 mg tablet 2.5 mg PO DAILY 07/28/24 01/23/25 01/23/25 History estradiol 10 mcg vaginal tablet 10 mcg vaginal 2XW 07/28/24 01/23/25 01/16/25 History gabapentin 100 mg capsule 400 mg PO BID 07/28/24 01/23/25 01/23/25 History trazodone 50 mg tablet 25 mg PO BEDTIME 07/28/24 01/23/25 01/22/25 History valacyclovir 500 mg tablet 500 mg PO TID PRN Cold Sores 07/28/24 01/23/25 Unknown History cholecalciferol (vitamin D3) 25 25 mcg PO DAILY 0501/23/25 01/16/25 History mcg (1,000 unit) tablet (Vitamin D3) cyanocobalamin (vitamin B-12) 1,000 mcg PO DAILY 12/23/24 01/23/25 01/16/25 History 1,000 mcg tablet (Vitamin B-12) tmyfdeophbt-ppnwkitat-oek C-Mn 500 1 cap PO DAILY 12/23/24 01/23/25 01/16/25 History mg-400 mg capsule (Glucosamine Chondroitin Maximum Strength) bsnwkxtx-txyt-sdlk 8 mg-folic 400 1 tab PO DAILY 12/23/24 01/23/25 01/16/25 History mcg-K 50 mcg-lutein 300 mcg tablet (Centrum Silver Women) omeprazole 20 mg tablet,delayed 20 mg PO BID PRN Acid Reflux 12/23/24 01/23/25 Unknown History release zinc acetate 25 mg (zinc) capsule 25 mg PO DAILY 12/23/24 01/23/25 01/16/25 History clindamycin HCl 300 mg capsule 600 mg PO ONCE PRN before dental 01/23/25 01/23/25 Unknown History work Exam Exam Date and Time: 01/23/25 0725 Height,Weight and Vital Signs: Height 5 ft 7 in Weight 77.111 kg Last Vital Signs Pulse 70 12/26/24 10:24 Resp 18 12/26/24 10:24 BP 132/75 12/26/24 10:24 Pulse Ox 96 12/26/24 10:24 O2 Del Method Room Air 12/26/24 10:24 Vital Signs Pulse Rate 70 12/26/24 10:24 Respiratory Rate 18 12/26/24 10:24 Blood Pressure 132/75 12/26/24 10:24 Pulse Oximetry 96 12/26/24 10:24 Oxygen Delivery Method Room Air 12/26/24 10:24 Temperature 98.2 F 01/23/25 06:37 Pulse Rate 76 01/23/25 06:37 Respiratory Rate 16 01/23/25 06:37 Blood Pressure 116/81 01/23/25 06:37 Pulse Oximetry 97 01/23/25 06:37 Oxygen Delivery Method Room Air 01/23/25 06:37 Airway Mallampati Class: I TM Dist: >3cm Neck ROM: Full Loose/Missing/Broken Teeth: No (patient denies any loose or broken teeth) Heart: S1S2 Assessment and Plan Assessment Anesthesia Assessment: Anesthesia Plan Discussed and Chart Reviewed Final Anesthetic Review Family History of Problems with Anesthesia: No History of Problems with Anesthesia: No NPO: Yes ASA Class: II Final Preanesthetic Review: No Changes in Pt Med Stat, Meds/Allgs Chart Reviewed, Consent Obtained/Reviewed and Anes Risks/Benef Reviewed Patient Risk: Low Procedure Risk: Intermediate Anesthetic Plan Anesthetic Plan: Spinal, Regional Block (right adductor canal and right ipack block) and Agree w/ Assess. and Plan Disposition: Standard PACU
[2025-01-23] MEDS: Clindamycin Phosphate/D5W 900 MG/50 ML PIGGYBACK 50 MG IV (07:55)
[2025-01-23] MEDS: Acetaminophen 1,000 MG/100 ML PIGGYBACK 400 MG IV (09:30)
--- NOTE | 2025-01-23 10:12 | PM.OP ---
Brief Operative Note Date of Service: 01/23/25 Pre-op diagnosis: Right knee degenerative joint disease Post-op diagnosis: same Procedure: Right total knee arthroplasty Implants: [place] [employer] cemented posterior stabilized total knee arthroplasty with a femoral component size 5 right, tibial component size 4, polyethylene liner size 4 with 9 mm of thickness, an asymmetric patellar component size 32 with 10 mm of thickness Surgeon: Bryn Amado MD Anesthesia: regional and spinal Was an Surg Physician Asst used for this Procedure?: No Surg Physician Asst: Ashli Shaikh Estimated blood loss (mL): 200 Tourniquet time (min): 0 Pathology: other (Bony fragments from the right femur, tibia and patella) Condition: stable Disposition: PACU
--- NOTE | 2025-01-23 10:14 | P.OP_ITS ---
Operative Note Operative Note Date of Service: 01/23/25 Narrative: After the patient was identified as Dayana Ugalde and her right knee was initialed by myself the patient was brought to the holding area where a right leg nerve block was performed by the anesthesiologist in routine fashion. The patient was then brought to the operating room where conscious sedation and spinal anesthesia were performed by the anesthesiologist in routine fashion. Because of the patient's allergy to penicillin she was given 900 mg of IV clindamycin preoperatively for infection prophylaxis. The patient's right lower extremity was prepped and draped in sterile fashion. A formal time-out was completed. The patient's right knee was placed onto a small bump to produce 30? of knee flexion during exposure. A #10 scalpel blade was used to make a midline incision extending 1 handbreadth proximal and distal to the patella. A second #10 scalpel blade was used to dissect the subcutaneous tissues down to the extensor mechanism. The subcutaneous flaps were maintained as thick as possible. A medial parapatellar arthrotomy was then performed using a #10 scalpel blade. The arthrotomy was begun just medial to the patellar tendon. The arthrotomy was continued 1 cm medial to the patella and then 5 mm into the medial aspect of the quadriceps tendon. The infrapatellar fat pad was partially excised to help with exposure. The soft tissue retinaculum was raised one-half of the way around the medial aspect of the proximal tibia. The patella was everted and the knee was flexed to 90?. There was no injury to the patellar tendon or its insertion onto the tibial tubercle. A drill bit was introduced into the distal aspect of the femur with a starting point 1 cm anterior to the origin of the posterior cruciate ligament. The intramedullary alignment law was put into place. The distal alignment guide was set for a 5 degree valgus cut. The distal cutting block was put into place and was held with 4 pins. The intramedullary alignment law was removed. Soft tissues were retracted in the d istal femoral cut was made using a sagittal saw. The distal aspect of the femur measured to be a size 5 right component. Two drill holes were placed into the distal aspect of the femur marking 3? of external rotation. The distal cutting block was impacted into place and was held with 2 pins. Soft tissues were retracted and the 4 distal femoral cuts were made using a sagittal saw. Final notching and drilling of the distal aspect of the femur were performed in routine fashion. The trial femoral component was impacted into place. The knee was taken through a full range of motion. The patella tracked well. The patella was everted and the knee was flexed to 90?. The trial component was removed and our attention was directed to the proximal tibia. The medial and lateral menisci were removed using a #10 scalpel blade. A small rim of the medial meniscus was left intact to help prevent injury to the medial collateral ligament. A drill bit was then introduced into the proximal tibia with a starting point midway from medial to lateral and one-third of the way posteriorly. The intramedullary alignment law was put into place. The proximal tibial cutting guide was placed over the alignment law in line with the 2nd toe. The guide was held in place using 3 pins. The intramedullary alignment law was removed. Soft tissues were retracted and the proximal tibial cut was made using a sagittal saw. The proximal tibia measured to be a size 4 component. The tibial tray was put into place with a 9 mm liner. The femoral component was impacted into place. The knee was taken through a full range of motion. There was full flexion and full extension. There was no instability with varus or valgus stress testing with the knee in flexion or extension. The patella tracked well with no medially directed force. The rotation of the tibial tray was marked using electrocautery with the knee in extension. The patella was everted and the knee was flexed to 90?. All trial components were removed. The tibial tray was placed onto the proximal tibia in line with the electrocautery danitza. The tray was held in place using 3 pins. Final broaching of the proximal tibia was performed in routine fashion. The trial liner and trial femoral component were put into place. The knee was brought into extension and our attention was directed to the patella. The patella measured 25 mm in thickness. The patellar resection guide was set for a 10 mm resection. Soft tissues were retracted and the patella cut was made using a sagittal saw. The remaining patella measured 15 mm in thickness. The undersurface of the patella was measured to be a size 32 asymmetric component. Three drill holes were placed into the undersurface of the patella in routine fashion. The trial component was put into place. The knee was taken through a full range of motion. The patella tracked well. The patella was everted and the knee was flexed to 90?. All trial components were removed. The knee was once again brought into extension and placed onto a small bump. The knee joint was irrigated with copious amounts of normal saline solution via pulse lavage while the cement was mixed. The patella was everted and the knee was flexed to 90?. A small amount of cement was placed along the posterior aspects of the tibial and femoral components. Cement was then pressurized into the proximal tibia. The tibial component was impacted into place. Any excess cement was removed. The polyethylene liner was then impacted into place. Cement was then pressurized into the distal aspect of the femur. A small amount of cement was placed into the intramedullary canal to help reduce bleeding. The femoral component was impacted into place. Any excess cement was removed. The knee was then brought into extension. Cement was pressurized into the undersurface of the patella. The patellar component was put into place and was held with a patella clamp. Any excess cement was removed. Once the cement had hardened the patellar clamp was removed. The knee was taken through a full range of motion. There was full flexion and extension. There was no instability with varus or valgus stress testing with the knee in flexion or extension. The patella tracked well with no medially directed force. The knee joint was irrigated with copious amounts of normal saline solution via pulse lavage. Any significant bleeding vessels were coagulated. The patient's right knee was placed onto a small bump. The arthrotomy was closed with #2 Ethibond [id number] interrupted suture as well as #1 Vicryl [id number] interrupted suture. The wound was once again irrigated. The subcutaneous tissues were closed with 0 Vicryl and 2-0 Vicryl interrupted sutures. The skin was closed with skin rajni. Dry sterile dressing and Bharat bandages were placed over the patient's right knee. The patient was awake and alert. The patient was transferred to the recovery room in stable condition.
[2025-01-23] MEDS: oxyCODONE HCl Immed Release 5 MG TABLET PO ×3 (12:22→23:09)
--- NOTE | 2025-01-23 13:04 | PHA.MEDREC ---
Addendum entered by Corona Delacruz RPh 01/23/25 13:48: Med rec was reviewed by [facility]. Original Note: Pharmacy Consult ? Medication Reconciliation Pharmacy reviewed med rec done by nursing. Spoke with pt and she confirmed her medications. Pt confirmed her Gabapentin and states she takes 400mg BID and has 100mg caps at home if needed for knee pain. Pt confirmed she stopped taking her Estridol cream about 1 week ago due to the surgery and pt will restart that after being discharged from here. Pt also stopped the Meloxicam 15mg tablet about 1 week ago and states she is not sure if she is going to start taking that again when she leaves. Pt states she stopped all her OTC medications about 1 week ago for the surgery and last took Gabapenitn and Amlodipine this am and Trazodone last night.
--- NOTE | 2025-01-23 13:49 | HO.PM.IMCN ---
History of Present Illness Data of Consult Service Date: 01/23/25 Primary Care Provider: Oc Carvalho MD [facility] Reason for consult: Medical management 59-year-old female with history of asthma, hypertension, and GERD who underwent Right knee arthroplasty with Dr. Amado this morning. On exam she is out of bed ambulated to the bathroom and voided. Reports her pain is relatively well controlled. She denies any shortness of breath, dizziness, lightheadedness, chest pain or any other concerning symptoms. She reports her blood pressure has been well controlled on low-dose of amlodipine. She otherwise feels well, lives home with her . Plan for discharge home with services per orthopedic recommendations. She reports her asthma is well controlled. Uses inhaler PRN. Review of Systems Review of Systems: Denies any shortness of breath, chest pain, dizziness, lightheadedness, abdominal pain or discomfort, nausea vomiting or diarrhea PMFSH Medical History (Updated 01/23/25 @ 14:35 by Bessie Hernandez DNP) Asthma Osteoarthritis GERD (gastroesophageal reflux disease) Jaundice SOB (shortness of breath) Prophylactic antibiotic IBS (irritable bowel syndrome) Insomnia Hx of cold sores Generalized anxiety disorder HTN (hypertension) Endometriosis Back pain Chronic eczema Cervical spondylosis Allergic rhinitis Surgical History History of arthroscopy of right shoulder (~2022) Hx of rotator cuff surgery History of partial hysterectomy H/O colonoscopy Hx of total knee arthroplasty Social History Household Members: Spouse Housing: House Are you a primary child care teacher to a significant other at home: No Do you presently have visiting nurse or other home services: No Patient Tobacco Use Status: Never used Tobacco Meds Allergies Allergy/AdvReac Type Severity Reaction Status Date / Time Sulfa (Sulfonamide Allergy Severe Anaphylaxis Verified 01/23/25 06:26 Antibiotics) sulfamethoxazole Allergy Severe Anaphylaxis Verified 01/23/25 06:26 [From Bactrim] trimethoprim [From Bactrim] Allergy Severe Anaphylaxis Verified 01/23/25 06:26 Penicillins Allergy Unknown Childhood Verified 01/23/25 06:26 allergy, GI Upset gluten AdvReac Mild Rash Verified 01/23/25 06:26 Active Medications: Current Medications Acetaminophen (Acetaminophen 325 Mg Tablet) 650 mg PO Q6H PRN PRN Reason: Pain, Mild 1-3,fever,headache Albuterol Sulfate (Albuterol Sulfate 90 Mcg 8 Gm Inhaler) 2 puff INHALE Q6H PRN PRN Reason: Shortness Of Breath Or Wheezing Amlodipine Besylate (Amlodipine Besylate 2.5 Mg Tablet) 2.5 mg PO DAILY [facility]; Protocol Aspirin (Aspirin 325 Mg Tablet) 325 mg PO BID [facility] Celecoxib (Celecoxib 200 Mg Capsule) 200 mg PO BID [facility] Docusate Sodium (Docusate Sodium 100 Mg Capsule) 100 mg PO BID [facility] Gabapentin (Gabapentin 400 Mg Capsule) 400 mg PO BID [facility] Hydromorphone HCl (Hydromorphone Hcl 0.5 Mg/0.5 Ml Syringe) 0.25 mg IVPUSH Q4H PRN; Protocol PRN Reason: Pain, Moderate(Pain Scale 4-6) Hydromorphone HCl (Hydromorphone Hcl 0.5 Mg/0.5 Ml Syringe) 0.5 mg IVPUSH Q4H PRN; Protocol PRN Reason: Pain, Severe (Pain Scale 7-10) Lactated Ringer's (Lr) 1,000 mls @ 100 mls/hr IVCONT .Q10H [facility] Last Admin: 01/23/25 11:43 Dose: 100 mls/hr Clindamycin Phosphate (Cleocin) 600 mg in 50 mls @ 100 mls/hr IV Q8H [facility] Stop: 01/24/25 15:59 Magnesium Hydroxide (Milk Of Magnesia 30 Ml Oral.Susp) 30 ml PO DAILY PRN PRN Reason: Constipation Melatonin (Melatonin 3 Mg Tablet) 6 mg PO BEDTIME PRN PRN Reason: Insomnia Methocarbamol (Methocarbamol 500 Mg Tablet) 500 mg PO TID [facility] Multivitamins/Vitamin C (Multivitamin Tablet) 1 tab PO DAILY [facility] Omeprazole (Omeprazole 20 Mg Capsule.Dr) 20 mg PO BID@0630,1630 [facility] Ondansetron HCl (Ondansetron Hcl 4 Mg/2 Ml Vial) 4 mg IVPUSH Q8H PRN PRN Reason: Nausea and Vomiting Oxycodone HCl (Oxycodone Hcl Immed Release 5 Mg Tablet) 5 mg PO Q4H [facility] Last Admin: 01/23/25 12:22 Dose: 5 mg Oxycodone HCl (Oxycodone Hcl Immed Release 5 Mg Tablet) 10 mg PO Q4H PRN PRN Reason: Pain, Moderate(Pain Scale 4-6) Oxycodone HCl (Oxycodone Hcl Er 10 Mg Tab.Er.12h) 10 mg PO BID [facility] Sodium Chloride (0.9 % Sodium Chloride Flush 3 Ml Syringe) 3 ml IVFLUSH QSHIFT [facility] Trazodone HCl (Trazodone Hcl 25 Mg Halftab) 25 mg PO BEDTIME [facility] Valacyclovir HCl (Valacyclovir Hcl 500 Mg Tablet) 500 mg PO TID PRN PRN Reason: Cold Sores Vitamin D (Cholecalciferol (Vitamin D3) 25 Mcg Tablet) 25 mcg PO DAILY [facility] Home Medications ?Medication ?Instructions ?Recorded ?Confirmed ?Last Taken ?Type acetaminophen 650 mg 650 mg PO Q12H PRN Pain 07/28/24 01/23/25 Unknown History tablet,extended release (Tylenol Arthritis Pain) albuterol sulfate 90 mcg/actuation 2 puff inhalation Q6-8H PRN 07/28/24 01/23/25 Unknown History aerosol inhaler Shortness Of Breath Or Wheezing amlodipine 2.5 mg tablet 2.5 mg PO DAILY 07/28/24 01/23/25 01/23/25 History gabapentin 100 mg capsule 100 mg PO BID PRN Knee Pain 07/28/24 01/23/25 Unknown History trazodone 50 mg tablet 25 mg PO BEDTIME 07/28/24 01/23/25 01/22/25 History valacyclovir 500 mg tablet 500 mg PO TID PRN Cold Sores 07/28/24 01/23/25 Unknown History cholecalciferol (vitamin D3) 25 25 mcg PO DAILY 12/23/24 01/23/25 01/16/25 History mcg (1,000 unit) tablet (Vitamin D3) [id number] C-Mn 500 1 cap PO DAILY 12/23/24 01/23/25 01/16/25 History mg-400 mg capsule (Glucosamine Chondroitin Maximum Strength) [id number] 8 mg-folic 400 1 tab PO DAILY 12/23/24 01/23/25 01/16/25 History mcg-K 50 mcg-lutein 300 mcg tablet (Centrum Silver Women) omeprazole 20 mg tablet,delayed 20 mg PO BID PRN Acid Reflux 12/23/24 01/23/25 Unknown History release zinc acetate 25 mg (zinc) capsule 25 mg PO DAILY 12/23/24 01/23/25 01/16/25 History gabapentin 400 mg capsule 400 mg PO BID 01/23/25 01/23/25 01/22/25 History vitamin B complex 1 tab PO DAILY 01/23/25 01/23/25 01/16/25 History Physical Exam Vital Signs and Narrative: Vital Signs: Last Vital Signs Temp 97.2 F 01/23/25 10:38 Pulse 69 01/23/25 10:38 Resp 16 01/23/25 10:38 BP 99/55 L 01/23/25 10:42 Pulse Ox 97 01/23/25 10:38 O2 Del Method Room Air 01/23/25 10:38 O2 Flow Rate 6 01/23/25 10:08 BMI result Body Mass Index 25.3 CONST: Alert and oriented, in NAD. Well nourished HEENT: Normocephalic, atraumatic, MMM, Eyes clear, Neck supple RESP: Lungs clear, RRR even and regular HEART:,RRR, S1, S2. no edema. + CMS to Right lower leg, + PP. GI:Abdomen Soft NT, ND. + BS times four :Deferred SKIN: Warm dry and intact, Dressing intact to right knee. NEURO:CN II-XII Intact bilaterally, Sensation intact. Speech clear PSYCH: Normal affect Results Labs 01/19/25 08:44 01/19/25 08:44 Assessment and Plan (1) HTN (hypertension): Status: Acute Plan 59-year-old female with a past medical history asthma, hypertension, and GERD. Patient is status post right total knee replacement today. Right total knee replacement Plan per orthopedics HTN Continue Amlodipine Asthma Stable, not in exacerbation Thank you for allowing me to participate in the care of this patient. Signing off at this time. Please reconsult if any acute complaints or issues arise
[2025-01-23] MEDS: oxyCODONE HCl Immed Release 5 MG TABLET 10 MG PO (14:01)
[2025-01-23] MEDS: methocarbamoL 500 MG TABLET PO ×2 (15:08→20:25)
[2025-01-23] MEDS: Omeprazole 20 MG CAPSULE.DR PO (16:20)
[2025-01-23] MEDS: 0.9 % Sodium Chloride Flush 3 ML SYRINGE IVFLUSH (16:21)
[2025-01-23] MEDS: HYDROmorphone HCl 0.5 MG/0.5 ML SYRINGE IVPUSH ×2 (16:21→23:57)
[2025-01-23] MEDS: Clindamycin Phosphate/D5W 600 MG/50 ML PIGGYBACK 100 MG IV ×2 (16:21→23:10)
[2025-01-23] MEDS: Aspirin 325 MG TABLET PO ×2 (17:55→20:23)
[2025-01-23] MEDS: ondansetron HCL 4 MG/2 ML VIAL IVPUSH (17:55)
[2025-01-23] MEDS: Docusate Sodium 100 MG CAPSULE PO (20:24)
[2025-01-23] MEDS: Gabapentin 400 MG CAPSULE PO (20:24)
[2025-01-23] MEDS: traZODone HCL 25 MG HALFTAB PO (20:24)
[2025-01-23] MEDS: oxyCODONE HCl ER 10 MG TAB.ER.12H PO (20:24)
[2025-01-23] MEDS: Celecoxib 200 MG CAPSULE PO (20:24)
--- NOTE | 2025-01-23 20:30 | PC.NURSE ---
This RN assumed care at 1900, pt report pain to R knee at 6/10, scheduled med given per OCT. Pt ambulated to BR with walker/standby assist and brushed teeth at sink, with good tolerance. +CMS to BLE, +pedal pulse, no edema noted. JANNA wrap CDI, RR even and non-labored, Denies CP at this time, no apparent distress noted. Will continue to reassess.
[2025-01-24 02:50] VITALS: BP 123/66; PULSE 73; RESP 18; TEMP 36.6; O2SAT 98
[2025-01-24] MEDS: oxyCODONE HCl Immed Release 5 MG TABLET PO ×4 (02:54→22:56)
[2025-01-24] MEDS: Omeprazole 20 MG CAPSULE.DR PO ×2 (05:51→15:31)
[2025-01-24] MEDS: HYDROmorphone HCl 0.5 MG/0.5 ML SYRINGE 0.25 MG IVPUSH (06:08)
[2025-01-24 07:09] LABS: MANUAL DIFF FLAG NO
[2025-01-24 07:19] LABS: Basophils Absolute Auto 0.1 X10*3/uL (0.0-0.2); Basophils Percent Auto 0.6 % (0-2); Eosinophils Percent Auto 0.4 % (0-4); Hematocrit 33.6 % (37.0-47.0); Hemoglobin 11.2 g/dl (12.0-16.0); Imm Gran Abs Auto 0.04 X10*3/uL (0.00-0.03); Imm Gran Pct Auto 0.4 % (0.0-0.4); Lymphocytes Absolute Auto 3.2 X10*3/uL (1.2-4.9); Lymphocytes Percent Auto 30.5 % (20-40); Mean Corpuscular HGB Conc 33.3 g/dl (31.0-35.0); Mean Corpuscular Hemoglobin 31.8 pg (27.0-33.0); Mean Corpuscular Volume 95.5 fL (80.0-98.0); Mean Platelet Volume 9.9 fL (9.4-12.3); Monocytes Absolute Auto 1.2 X10*3/uL (0.1-1.2); Monocytes Percent Auto 10.9 % (2-11); Neutrophils Absolute Auto 6.1 x10*3/uL (2.0-8.3); Neutrophils Percent Auto 57.2 % (45-73); Platelet Count 237 X10*3/uL (160-400); Red Blood Count 3.52 X10*6/uL (4.20-5.50); Red Cell Distribution Width 11.3 % (11.0-16.0); White Blood Count 10.6 X10*3/uL (4.8-10.8)
[2025-01-24] MEDS: oxyCODONE HCl Immed Release 5 MG TABLET 10 MG PO ×2 (07:27→15:30)
[2025-01-24] MEDS: Clindamycin Phosphate/D5W 600 MG/50 ML PIGGYBACK 100 MG IV (07:28)
[2025-01-24 07:32] LABS: Anion Gap 11 (12-20); Blood Urea Nitrogen 13 mg/dL (9-16); Calcium 9.2 mg/dL (8.4-10.2); Carbon Dioxide 26 mmol/L (22-29); Chloride 105 mmol/L (96-108); Creatinine Clr Calc Pharmacy 77.5; Estimated Glomerular Filt Rate > 60; Glucose Fasting 82 mg/dL (60-99); Potassium 4.2 mmol/L (3.3-5.1); Sodium 138 mmol/L (135-145)
[2025-01-24 08:02] VITALS: BP 101/56; PULSE 74; RESP 18; TEMP 36.1; O2SAT 98
[2025-01-24] MEDS: Lactated Ringers 1,000 ML 100 ML IVCONT ×2 (08:49→17:55)
[2025-01-24] MEDS: ondansetron HCL 4 MG/2 ML VIAL IVPUSH (09:08)
--- NOTE | 2025-01-24 09:22 | HO.POSTANES ---
Post Anesthesia Evaluation Post Anesthesia Evaluation Date of Service: 01/24/25 Vital Signs: Vital Signs Temp Pulse Resp BP Pulse Ox O2 Del Method 01/24/25 08:02 97 F 74 18 101/56 L 98 Room Air 01/24/25 02:50 97.8 F 73 18 123/66 98 Room Air Anesthesia: Spinal Mental Status: Awake Pain Control: Satisfactory Nausea/Vomiting: None Hydration: Adequate Anesthesia-Related Issues: No Anes. Related Issues
--- NOTE | 2025-01-24 09:46 | MHC.CM.PN ---
EMR REVIEWED, PT S/P WALDO HANKINS MET W/PT WHO REPORTS SHE LIVES W/, IS INDEP W/ALL CARE AT BASELINE, DOES HAVE A FWW AND CANE FOR DME AND NO SURRENT HOME SERVICES, PT'S GOAL FOR DC IS HOME W/[facility] ONCE MEDICALLY CLEARED. PT VERIFIES PCP/HCP ON FILE.
[2025-01-24] MEDS: Docusate Sodium 100 MG CAPSULE PO ×2 (10:00→20:45)
[2025-01-24] MEDS: methocarbamoL 500 MG TABLET PO ×3 (10:00→20:45)
[2025-01-24] MEDS: Celecoxib 200 MG CAPSULE PO ×2 (10:00→20:45)
[2025-01-24] MEDS: Aspirin 325 MG TABLET PO ×2 (10:00→20:45)
[2025-01-24] MEDS: Gabapentin 400 MG CAPSULE PO ×2 (10:01→20:45)
[2025-01-24] MEDS: Multivitamin TABLET 1 TAB PO (10:01)
[2025-01-24] MEDS: amLODIPine Besylate 2.5 MG TABLET PO (10:01)
[2025-01-24] MEDS: Cholecalciferol (Vitamin D3) 25 MCG TABLET PO (10:01)
[2025-01-24] MEDS: oxyCODONE HCl ER 10 MG TAB.ER.12H PO ×2 (10:01→20:45)
[2025-01-24 13:20] VITALS: BP 152/72; PULSE 63; RESP 18; O2SAT 97
--- NOTE | 2025-01-24 15:11 | P.PNOP_ITS ---
Subjective Subjective Date of Service: 01/24/25 Interval history: POD 1 s/p RT TKA No overnight events resting in bed-had epsidoes on nausea this afternoon Physical Exam Vital Signs: Vital Signs: Last Vital Signs Temp 97 F 01/24/25 08:02 Pulse 63 01/24/25 13:20 Resp 18 01/24/25 13:20 BP 152/72 H 01/24/25 13:20 Pulse Ox 97 01/24/25 13:20 O2 Del Method Room Air 01/24/25 13:20 O2 Flow Rate 6 01/23/25 10:08 BMI result Body Mass Index 27.6 Const: General: cooperative, healthy appearing and no acute distress Resp: Effort & Inspection: normal respiratory effort and able to speak in complete sentences Cardio: Rate: regular rate Peripheral pulses: Peripheral pulses 2+ throughout GI: Palpation (GI): Soft to palpation Skin: General skin exam: no rashes or lesions noted Extrem: Other: Rt knee bandage intact Able to dorsi and plantar flex foot NVI Procedures Date of Service Date of Service: 01/24/25 Progress Note: A&P Assessment and plan (1) Status post total right knee replacement: Status: Acute Assessment and Plan: * Continue pain mgmnt * Begin Aspirin for dvt ppx * begin PT for RT TKA * Dispo planning-Pending PT eval, pain mgmnt Time Spent With Patient Time: Total time managing care of this patient today ____ minutes. Quality Stroke Does the patient have a stroke diagnosis?: No VTE Prior VTE?: No VTE Risk Level:: Surgical - very high VTE Device Contraindication: N/A - Device Ordered VTE Drug Contraindication: N/A - Med Ordered
--- NOTE | 2025-01-24 15:14 | PM.DS ---
DS: Providers Provider Date of Service: 01/25/25 <Betsy Guzman PA-C - Last Filed: 01/24/25 15:15> Date of discharge: 01/25/25 <Betsy Guzman PA-C - Last Filed: 01/24/25 15:15> Primary care physician: Oc Carvalho MD <Betsy Guzman PA-C - Last Filed: 01/24/25 15:15> Consults: 01/23/25 11:07 Consult to Hospitalist Routine Comment: Consulting Provider: [facility] Reason For Exam: Routine medical management <Betsy Guzman PA-C - Last Filed: 01/24/25 15:15> DS: Diagnosis Discharge Diagnosis (1) Status post total right knee replacement: Status: Acute <ISREAL Giles Last Filed: 01/24/25 15:15> DS: Summary Hospital Course Hospital Course: The patient underwent a successful right total knee arthroplasty, they were transferred to PACU and then to the floor to recover. During their stay, their vitals were stable, afebrile at 97.5. Labs were unremarkable, H/H 12.1/34.9. POD 1 they were started on Aspirin 325mg po bid for DVT ppx, they also received Physical Therapy services twice a day. Prior to discharge, their dressing was clean dry and intact and the plan was to be discharged home with VNA services. <Betsy Guzman PA-C - Last Filed: 01/24/25 15:15> Time Attestation Discharge Coordination Time (in mins): 30 <Ashli Shaikh PA-C - Last Filed: 01/25/25 10:51> Quality: Safe Use of Opioids Does Pt have an Active Cancer Diagnosis on the Problem List?: No <Ashli Shaikh PA-C - Last Filed: 01/25/25 10:51> Quality: Stroke Does the patient have a stroke diagnosis?: No <Ashli Shaikh PA-C - Last Filed: 01/25/25 10:51> Physical Exam Vital Signs: Vital Signs: Last Vital Signs Temp 97 F 01/24/25 08:02 Pulse 63 01/24/25 13:20 Resp 18 01/24/25 13:20 BP 152/72 H 01/24/25 13:20 Pulse Ox 97 01/24/25 13:20 O2 Del Method Room Air 01/24/25 13:20 O2 Flow Rate 6 01/23/25 10:08 BMI result Body Mass Index 27.6 <Betsy Guzman PA-C - Last Filed: 01/24/25 15:15> Const: General: cooperative, healthy appearing and no acute distress <Ashli Shaikh PA-C - Last Filed: 01/25/25 10:51> Resp: Effort & Inspection: normal respiratory effort and able to speak in complete sentences <Ashli Shaikh PA-C - Last Filed: 01/25/25 10:51> Cardio: Rate: regular rate <Ashli Shaikh PA-C - Last Filed: 01/25/25 10:51> Peripheral pulses: Peripheral pulses 2+ throughout <LUCAS YeboahC - Last Filed: 01/25/25 10:51> GI: Palpation (GI): Soft to palpation <Ashli Shaikh PA-C - Last Filed: 01/25/25 10:51> Skin: General skin exam: no rashes or lesions noted <LUCAS YeboahC - Last Filed: 01/25/25 10:51> Lesions: no lesions <Ashli Shaikh PA-C - Last Filed: 01/25/25 10:51> Rashes: no rashes <LUCAS YeboahC - Last Filed: 01/25/25 10:51> Extrem: Other: rt knee dressing is c/d/i. Able to dorsi/plantar flex. Calf is supple and nontender. Sensation intact. Pedal pulse intact. <Ashli Shaikh PA-C - Last Filed: 01/25/25 10:51> DS: Data Data Completed and Pending Pending studies at discharge: Pending at discharge 01/23/25 09:13 Surgical [PTH] Routine <Betsy Guzman PA-C - Last Filed: 01/24/25 15:15> Labs on day of discharge: Laboratory Results - last 24 hr 01/24/25 06:25 WBC 10.6 RBC 3.52 L Hgb 11.2 L Hct 33.6 L MCV 95.5 MCH 31.8 MCHC 33.3 RDW 11.3 Plt Count 237 MPV 9.9 Immature Gran % (Auto) 0.4 Neut % (Auto) 57.2 Lymph % (Auto) 30.5 Bledsoe % (Auto) 10.9 Eos % (Auto) 0.4 Baso % (Auto) 0.6 Lymph # (Auto) 3.2 Bledsoe # (Auto) 1.2 Eos # (Auto) 0.0 Baso # (Auto) 0.1 Abs Immat Gran (auto) 0.04 H Absolute Neuts (auto) 6.1 Absolute Nucleated RBC 0.000 Nucleated RBC % (auto) 0.0 Sodium 138 Potassium 4.2 Chloride 105 Carbon Dioxide 26 Anion Gap 11 L BUN 13 Creatinine 0.85 Estim Creat Clear Calc 77.5 Estimated GFR > 60 Fasting Glucose 82 Calcium 9.2 <Betsy Guzman PA-C - Last Filed: 01/24/25 15:15> Discharge Plan Discharge Patient Disposition: Home Health Service <Betsy Guzman PA-C - Last Filed: 01/24/25 15:15> Referrals: Norah POWELL [Outside] - 1 Day (HOME PHYSICAL THERAPY) Ashli Shaikh PA-C [Physician Engineering Illustrator] - 02/09/25 12:30 pm (02/09/25 12:30 [facility] Ashli Shaikh PA-C) <Betsy Guzman PA-C - Last Filed: 01/24/25 15:15> Discharge Medications: New celecoxib 200 mg Capsule 200 mg PO BID 30 Days Qty: 60 0RF methocarbamol 500 mg Tablet 500 mg PO TID 7 Days Qty: 21 0RF aspirin 325 mg Tablet 325 mg PO BID 42 Days Qty: 84 0RF docusate sodium 100 mg Capsule 100 mg PO BID 7 Days Qty: 14 0RF oxycodone 5 mg Tablet 5 mg PO Q4H 7 Days Qty: 42 0RF Rx Instructions: Partial Fill upon patient request. Torrie (PEDRO) tamie Monzon See Rx Instructions .ROUTE .MEDSUPPLY Qty: 1 0RF Rx Instructions: Folding front wheeled walker zinc acetate 25 mg (zinc) Capsule 25 mg PO DAILY eprvrapobwd-czrcbyqrj-uid C-Mn [Glucosamine Chondroitin MaxStr] 500-400 mg Capsule 1 cap PO DAILY cholecalciferol (vitamin D3) [Vitamin D3] 25 mcg (1,000 unit) Tablet 25 mcg PO DAILY omeprazole 20 mg Tablet,Delayed Release (Dr/Ec) 20 mg PO BID PRN (Reason: Acid Reflux) Centrum Silver Women 8 mg iron-400 mcg-50 mcg Tablet 1 tab PO DAILY gabapentin 400 mg capsule 400 mg PO BID vitamin B complex Tablet 1 tab PO DAILY valacyclovir 500 mg tablet 500 mg PO TID PRN (Reason: Cold Sores) trazodone 50 mg tablet 25 mg PO BEDTIME amlodipine 2.5 mg tablet 2.5 mg PO DAILY gabapentin 100 mg capsule 100 mg PO BID PRN (Reason: Knee Pain) albuterol sulfate 90 mcg/actuation HFA aerosol inhaler 2 puff inhalation Q6-8H PRN (Reason: Shortness Of Breath Or Wheezing) acetaminophen [Tylenol Arthritis Pain] 650 mg tablet extended release 650 mg PO Q12H PRN (Reason: Pain) <Betsy Guzman PA-C - Last Filed: 01/24/25 15:15> Discharge Orders: Discharge Order (Routine); Ordered 01/25/25 Ordered By: Ashli Shaikh <Betsy Guzman PA-C - Last Filed: 01/24/25 15:15> Diet: Regular diet <Betsy Guzman PA-C - Last Filed: 01/24/25 15:15> Regular diet <Ashli Shaikh PA-C - Last Filed: 01/25/25 10:51> Activity on Discharge: Use cane or walker <Betsy Guzman PA-C - Last Filed: 01/24/25 15:15> Use cane or walker <Ashli Shaikh PA-C - Last Filed: 01/25/25 10:51> Activity Restrictions/Additional Instructions: Physical Therapy for Total knee arthroplasty: WBAT, gait training, ROM 0-12, quad strength Limit stair climbing No showering, no tub bath-keep dressing clean, dry and intact No driving x6 weeks Continue Aspirin twice a day x 6 weeks Follow up with [facility] in 2 weeks: <Betsy Guzman PA-C - Last Filed: 01/24/25 15:15> Print Language: Hebrew <Betsy Guzman PA-C - Last Filed: 01/24/25 15:15>
[2025-01-24 15:15] VITALS: BP 183/79; PULSE 76; RESP 18; TEMP 36.9; O2SAT 99
--- NOTE | 2025-01-24 15:15 | W.MHC.F2F ---
Service Date Service Date: 01/25/25 Encounter Date of encounter: 01/25/25 Reasons for Services Signs and symptoms assessed: Weakness, poor balance, poor gait mechanics Reason for physical therapy: home safety and mobility, therapeutic exercises, restore joint function, gait/transfer training, ADL training and energy conservation Reason for occupational therapy: home safety and mobility, therapeutic exercises, restore joint function, gait/transfer training, ADL training and energy conservation Homebound: Leaving the home is medically contraindicated at this time without the asist of a device and/or another person due th the listed conditions above and below. Reason homebound: unsteady gait / fall risk, pain with ambulation, poor balance / fall risk and unable to drive Certification: Based on the above findings, I certify that this patient is confined to the home and needs intermittent fpc care, physical therapy and/or speech therapy, or continues to need occupational therapy. The patient is under my care, and I have initiated the establishment of the plan of care. The patient will be followed by a physician who will periodically review the plan of care. Time Spent With Patient Time: Total time managing care of this patient today ____ minutes.
[2025-01-24] MEDS: Promethazine HCL 25 MG TABLET PO ×2 (15:31→20:49)
[2025-01-24 19:27] VITALS: BP 164/82
[2025-01-24 19:28] VITALS: PULSE 78; RESP 18; TEMP 36.9; O2SAT 97
[2025-01-24] MEDS: traZODone HCL 25 MG HALFTAB PO (20:45)
[2025-01-24] MEDS: 0.9 % Sodium Chloride Flush 3 ML SYRINGE IVFLUSH (20:50)
--- NOTE | 2025-01-25 00:10 | PC.NURSE ---
late entry: This RN assumed care of patient 19:00. per report from day shift RN, patients fluids could be disconnected per MD, as she is drinking & tolerating PO intake.
[2025-01-25] MEDS: oxyCODONE HCl Immed Release 5 MG TABLET PO ×2 (03:04→12:56)
[2025-01-25 03:17] VITALS: BP 146/65; PULSE 83; RESP 18; TEMP 36; O2SAT 96
[2025-01-25] MEDS: Omeprazole 20 MG CAPSULE.DR PO (05:58)
[2025-01-25 06:21] LABS: MANUAL DIFF FLAG NO
[2025-01-25 06:25] LABS: Basophils Absolute Auto 0.1 X10*3/uL (0.0-0.2); Basophils Percent Auto 0.4 % (0-2); Eosinophils Absolute Auto 0.3 X10*3/uL (0.0-0.4); Hematocrit 34.9 % (37.0-47.0); Hemoglobin 12.1 g/dl (12.0-16.0); Imm Gran Abs Auto 0.08 X10*3/uL (0.00-0.03); Imm Gran Pct Auto 0.6 % (0.0-0.4); Mean Corpuscular HGB Conc 34.7 g/dl (31.0-35.0); Mean Corpuscular Hemoglobin 32.4 pg (27.0-33.0); Mean Corpuscular Volume 93.6 fL (80.0-98.0); Mean Platelet Volume 9.4 fL (9.4-12.3); Monocytes Absolute Auto 1.3 X10*3/uL (0.1-1.2); Monocytes Percent Auto 9.8 % (2-11); Neutrophils Percent Auto 71.2 % (45-73); Platelet Count 278 X10*3/uL (160-400); Red Blood Count 3.73 X10*6/uL (4.20-5.50); Red Cell Distribution Width 11.4 % (11.0-16.0); White Blood Count 12.7 X10*3/uL (4.8-10.8)
[2025-01-25 06:51] LABS: Anion Gap 11 (12-20); Blood Urea Nitrogen 7 mg/dL (9-16); Calcium 9.8 mg/dL (8.4-10.2); Carbon Dioxide 27 mmol/L (22-29); Chloride 105 mmol/L (96-108); Creatinine Clr Calc Pharmacy 90.3; Estimated Glomerular Filt Rate > 60; Glucose Fasting 105 mg/dL (60-99); Potassium 4.3 mmol/L (3.3-5.1); Sodium 139 mmol/L (135-145)
[2025-01-25] MEDS: Gabapentin 400 MG CAPSULE PO (07:35)
[2025-01-25] MEDS: Multivitamin TABLET 1 TAB PO (07:35)
[2025-01-25] MEDS: Aspirin 325 MG TABLET PO (07:35)
[2025-01-25] MEDS: oxyCODONE HCl ER 10 MG TAB.ER.12H PO (07:35)
[2025-01-25] MEDS: Celecoxib 200 MG CAPSULE PO (07:35)
[2025-01-25] MEDS: methocarbamoL 500 MG TABLET PO (07:36)
[2025-01-25] MEDS: Cholecalciferol (Vitamin D3) 25 MCG TABLET PO (07:36)
[2025-01-25] MEDS: amLODIPine Besylate 2.5 MG TABLET PO (07:36)
[2025-01-25] MEDS: Docusate Sodium 100 MG CAPSULE PO (07:36)
[2025-01-25 07:37] VITALS: BP 115/73; PULSE 94; RESP 18; TEMP 36.4; O2SAT 99
[2025-01-25] MEDS: 0.9 % Sodium Chloride Flush 3 ML SYRINGE IVFLUSH (07:37)
--- NOTE | 2025-01-25 08:18 | MHC.CM.PN ---
PT MEDICALLY CLEARED FOR DC HOME W/NEW [facility] FOR OT/PT, PT WILL ARRANGE TRANSPORT
[2025-01-25 12:54] VITALS: BP 115/73; PULSE 94; O2SAT 99
== END 2025-01-25 14:24 | disposition home health service (06) ==
LOC: HO.SSS 05:59 → HO.S3 10:31
PROVIDERS: Nurse Practitioner; Physician Assistant; PCP Internal Medicine; Visit Provider Orthopaedic Surgery
PROC: (CPT 27447; principal; 2025-01-23 07:30)
DX: M17.11 Unilateral primary osteoarthritis, right knee (principal); I10 Essential (primary) hypertension; J45.909 Unspecified asthma, uncomplicated; K21.9 Gastro-esophageal reflux disease without esophagitis; K58.9 Irritable bowel syndrome, unspecified; M47.812 Spondylosis without myelopathy or radiculopathy, cervical region; R06.02 Shortness of breath; F41.1 Generalized anxiety disorder; L30.9 Dermatitis, unspecified; Z79.899 Other long term (current) drug therapy; Z88.0 Allergy status to penicillin; Z88.2 Allergy status to sulfonamides; Z91.018 Allergy to other foods; Z98.890 Other specified postprocedural states
CPT/HCPCS: 27447; 36415; 80048; 80053; 83036; 85025; 85027; 85610; 85730; 86850; 86900; 86901; 87640; 87641; 88305; 88311; 97110; 97116; 97161; 97530; C1776; J0131; J0665; J0736; J1100; J1171; J2003; J2250; J2371; J2405; J2704; J3370; J7120

== ENCOUNTER → 2025-01-23 05:59 | Outpatient (BNV) | payer OTHER, SELFPAY | PROVIDERS: PCP Internal Medicine; Visit Provider Orthopaedic Surgery | DX: Z47.1 Aftercare following joint replacement surgery (principal); Z96.651 Presence of right artificial knee joint | CPT/HCPCS: 27447; 99024; G0180 ==

== ENCOUNTER → 2025-01-23 05:59 | Outpatient (BNV) | payer OTHER, SELFPAY | PROVIDERS: PCP Internal Medicine; Visit Provider Nurse Practitioner Family | DX: I10 Essential (primary) hypertension (principal) | CPT/HCPCS: 99221 ==

== ENCOUNTER 2025-02-09 09:07 | Outpatient (REF) | payer OTHER, SELFPAY ==
--- NOTE | ~2025-02-09 | XR_ITS ---
CLINICAL HISTORY: M25.569 - Pain in unspecified knee Right knee two views Comparison: 01/19/2025 Findings: No acute fracture or dislocation identified. Knee prosthesis demonstrates normal alignment. There is no evidence for component loosening. Anterior midline surgical rajni. Impression: Status post prosthesis placement Bilateral standing AP knees Comparison: None provided Findings: No acute fracture or dislocation identified. Bilateral prostheses demonstrate normal alignment. Impression: No acute bony abnormality This document has been electronically signed by: Cale Crowell MD on 02/09/2025 21:37:54
== END 2025-02-09 09:08 | disposition home or self-care (01) ==
LOC: HO.HOSX 09:07
PROVIDERS: Visit Provider Physician Assistant
DX: M25.561 Pain in right knee (principal); Z96.651 Presence of right artificial knee joint
CPT/HCPCS: 73562

== ENCOUNTER 2025-02-09 13:50 | Outpatient (AMB) | payer OTHER, SELFPAY ==
--- NOTE | 2025-02-09 14:02 | A.OFFVIS_ITS ---
Intake Visit Reasons: 2WK PO: Debbie doty/ 01/23/25 Intake Note: Dayana is a 59 year old female who presents today as a 2WK PO: Debbie doty/ 01/23/25. Patient states that she started physical therapy but the facility is still waiting for the Referral. She states she is still having numbness, tingling and radiating pain down to her heel. She reports that she has a slight redness around the staple site. Patient added that she still has swelling in the knee. Allergies Sulfa (Sulfonamide Antibiotics) Allergy (Severe, Verified 02/09/25 14:09) Anaphylaxis sulfamethoxazole (From Bactrim) Allergy (Severe, Verified 02/09/25 14:09) Anaphylaxis trimethoprim (From Bactrim) Allergy (Severe, Verified 02/09/25 14:09) Anaphylaxis Penicillins Allergy (Unknown, Verified 02/09/25 14:09) Childhood allergy, GI Upset gluten Adverse Reaction (Mild, Verified 02/09/25 14:09) Rash HPI HPI 2WK PO: Debbie doty/ 01/23/25: Details: Ms. Ugalde is a 59-year-old female status post right total knee arthroplasty performed by Dr. Amado on 01/23/2025. Overall the patient is doing very well. She reports minimal pain or discomfort. She has home visiting nurse association working with her on physical therapy. After this she will be transitioned to outpatient physical therapy. [facility] Medical History (Updated 01/27/25 @ 00:00 by Background Daemon) Asthma Osteoarthritis GERD (gastroesophageal reflux disease) Jaundice SOB (shortness of breath) Prophylactic antibiotic IBS (irritable bowel syndrome) Insomnia Hx of cold sores Generalized anxiety disorder HTN (hypertension) Endometriosis Back pain Chronic eczema Cervical spondylosis Allergic rhinitis Surgical History (Updated 01/27/25 @ 00:00 by Background Daemon) History of arthroscopy of right shoulder (~2022) Hx of rotator cuff surgery History of partial hysterectomy H/O colonoscopy Hx of total knee arthroplasty Social History Household Members: Spouse Housing: House Are you a primary health care recruiter to a significant other at home: No Do you presently have visiting nurse or other home services: No Patient Tobacco Use Status: Never used Tobacco service: No Review of Systems Const All systems reviewed & are unremarkable except as noted in HPI and below Physical Exam Const General: cooperative, healthy appearing and no acute distress Resp Effort & Inspection: normal respiratory effort and able to speak in complete sentences Extrem Other: Right knee incision site is clean dry and intact. [place] intact. No surrounding erythema or drainage. No signs of infection. Range of motion 0 to 110. NVI. Assessment & Plan Assessment & Plan (1) Status post total right knee replacement: Code(s): Z96.651 - Presence of right artificial knee joint Category: Surgical Plan Ms. Ugalde is a 59-year-old female status post right total knee arthroplasty performed by Dr. Amado on 01/23/2025. Overall the patient is doing very well. She reports minimal pain or discomfort. She has home visiting nurse association working with her on physical therapy. After this she will be transitioned to outpatient physical therapy. While the office today, rajni were removed and Steri-Strips were applied. Patient will continue working with physical therapy. Continuation of anticoagulant for 6 weeks postoperatively. She will follow up with Dr. Amado in 4 weeks, sooner if needed. X-rays of the right knee which were obtained while in the office today and were reviewed by me, Ashli Shaikh PA-C, revealed intact right knee arthroplasty. Orders: Orders XR knee RT 3V 02/09/25 M25.569 - Pain in unspecified knee PT Evaluation and Treatment 02/09/25 Z96.651 - Presence of right artificial knee joint, Z96.659 - Presence of unspecified artificial knee joint Coding Level of Care Code Global (23892) Diagnoses Status post total right knee replacement Z96.651
--- OUTSIDE RECORDS SUMMARY | 2025-02-09 16:41 | XMS_ITS | Data Portability ---
Author Organization ID - [facility], Home - ID Address [address] [place] [address] Assessment Encounter Date Assessment Date Assessment LastModified [...] mg tablet 2022 023 [email or web address] [id number], [address], [place], [phone], 09:18:37 Patient TargetsNo targets recorded. Patient InstructionsNo instructions recorded. Reason for Referral None Reported. Problems Name Problem SNOMED Code Status Onset Date Resolution Date Notes Provider Name and Address Organization Details Recorded Time Laceration of left thumb [id number] 9107 Active 2022 KHANH angeles [facility] 3 08:53:47 Problem Notes None recorded. Procedures Surgical History Date Name Laterality Status Provider Name and Address Organization Details Recorded Time 3 Laceration repair with glue completed KHANH MOREAU [facility] 09/03/2022 09:02:21 Imaging Results None recorded. Procedure Notes None recorded. Medical Equipment None Reported. Allergies Allergen ID Allergen Name Allergen Category Reaction Reaction Severity Criticality Documentation Date Start Date Code Code System Note Provider Name and Address Organization Details Recorded Time 717988 Product containin g penicilli n (product) medicatio n abdominal pain Not available low 06/28/2022 46156 8001 [facility] 12:[facility]05 822935 Substance with sulfonami de structure and antibacte rial mechanism of action (substanc e) medicatio n anaphylax is Not available high 06/28/2022 66193 8003 SNOMED KHANH angeles, [facility] 2 12:54:24 Medications Name Sig Start Date [...] Updated DateTime 3 170.18 cm 25.1 kg/m2 62096.7 8 g 90 /min 97 % 97 % 97.6 [degF] PARIS LUNA RN [facility] 3 14:57:23 Date Recorded Respiratory rate Heart rate Oxygen saturation Oxygen saturation in Arterial blood by Pulse oximetry Body height Body mass index (BMI) Body weight Body temperature Systolic blood pressure Diastolic blood pressure Provider Name and Address Organization Details Last Updated DateTime 2 16 /min 89 /min 97 % 97 % 170.18 cm 25.1 kg/m2 95148.7 8 g 97.6 [degF] 140 mm[Hg] 89 mm[Hg] Zoe Sutton RN [address] [place] [address], [phone], [facility] 12:37:24 Social History None recorded. Functional Status None recorded. Mental Status None recorded. Family History Nothing Reported. Medical History No medical history recorded. Gynecological HistoryNo gynecological history recorded. Obstetrics History GPAL:G 0 P 0 0 0 0 Immunizations Vaccine Type Date Status Note Provider Nam e and Address Organization Details Recorded Time Tdap 08/30/2022 completed KHANH MOREAU null [facility] 09/03/2022 09:18:37 Past Encounters Encounter ID Performer Location Encounter Start Date Encounter Closed Date Diagnosis/Indication Diagnosis SNOMED-CT Code Diagnosis ICD10 Code Diagnosis Note [id number] Khanh [place] [address] 06/28/2022 11:52:24 06/28/2022 13:39:44 Foreign body - finger [id number] S60.452A RIGHT MIDDLE FINGERI was able to [...] nt left in a comfortabl e mood. [id number] Khanh [place] [address] 08/30/2022 14:27:18 08/30/2022 15:11:15 Administration of diphtheria, pertussis, and tetanus vaccine 828538550 Z23 Laceration of left thumb [id number] 8345873 S61.012A Advised to keep wound clean and dry for the next 24 hours. After 24 hours, may get wound wet. Recommend daily wound care including washing area with gentle soap and water, applicatio n of antibiotic ointment and clean dressing. Advised not to soak wound. Dayana is traveling to [facility] in 2 days.Discu ssed signs of infection including fever, redness, swelling, and/or purulent drainage (pus). I will prescribe Doxycyclin e which she will fill and take with her to [place]. I advised her to start Doxycyclin e [...] Recorded Advance Directives Directive None Recorded Payers Insurance Date Sequence Insurance Name Policy Number Policy [place] Covered Member ID Alston Member ID Guarantor Name 08/30/2022 1 JOCELYNNTNA [id number] Dayana Ugalde [id number] Dayana Ugalde Notes Date Note Type [...] skin or numbness or tingling. KHANH angeles [facility] 07/02/2022 13:20:30 08/30/2022 text/html This is a [...] prior to arrival was at the [facility] trying to scrap the old sticker off her car with a razor blade and it slipped and cut her L thumb. I soaked the thumb in warm soapy water and then held pressure to stop the bleeding. KHANH angeles [facility] 09/03/2022 09:20:44 OBGyn Episode No OBEpisode recorded.
== END 2025-02-09 14:54 | disposition home or self-care (01) ==
LOC: HO.HOS 13:51
PROVIDERS: PCP Internal Medicine; Visit Provider Physician Assistant
DX: Z96.651 Presence of right artificial knee joint (principal)
CPT/HCPCS: 99024

== ENCOUNTER → 2025-02-09 13:53 | Outpatient (BNV) | payer OTHER, SELFPAY | PROVIDERS: Visit Provider Radiology Diagnostic Radiology | DX: Z96.653 Presence of artificial knee joint, bilateral (principal) | CPT/HCPCS: 73562 ==

== ENCOUNTER 2025-03-08 10:10 | Outpatient (AMB) | payer OTHER, SELFPAY ==
--- NOTE | 2025-03-08 10:15 | A.OFFVIS_ITS ---
Vital Signs 03/08/25 10:20 Height 5 ft 7 in Weight 149 lb BMI 23.3 Intake Visit Reasons: PO: R TKA w/DR 01/23/25-4 WK F/U Intake Note: Dayana is a 59 year old female who presents with complaints of mild to moderate discomfort in her right knee after undergoing right total knee replacement surgery on 01/23/2025. She continues with her physical therapy exercises. She denies any fevers or chills. She has taken Celebrex and oxycodone as well as Tylenol which gave her fairly good relief. Allergies Sulfa (Sulfonamide Antibiotics) Allergy (Severe, Verified 03/08/25 10:19) Anaphylaxis sulfamethoxazole (From Bactrim) Allergy (Severe, Verified 03/08/25 10:19) Anaphylaxis trimethoprim (From Bactrim) Allergy (Severe, Verified 03/08/25 10:19) Anaphylaxis Penicillins Allergy (Unknown, Verified 03/08/25 10:19) Childhood allergy, GI Upset gluten Adverse Reaction (Mild, Verified 03/08/25 10:19) Rash Medication List - Last Reconciled 03/08/25 by Bryn Amado MD acetaminophen ER (Tylenol Arthritis Pain) 650 mg PO Q12H PRN albuterol sulfate 90 mcg/actuation 2 puffs inhalation Q6-8H PRN amlodipine 2.5 mg PO DAILY cholecalciferol (vitamin D3) (Vitamin D3) 25 mcg PO DAILY gabapentin 400 mg PO BID gabapentin 100 mg PO BID PRN xhncpceelhy-bkouyhvwi-vrw C-Mn 500-400 mg (Glucosamine Chondroitin Maximum Strength) 1 cap PO DAILY mrknnpee-ioc-abpu-FA-vit K-lut 8 mg iron-400 mcg-50 mcg (Centrum Silver Women) 1 tab PO DAILY omeprazole 20 mg PO BID PRN trazodone 25 mg PO BEDTIME valacyclovir 500 mg PO TID PRN vitamin B complex 1 tab PO DAILY walker Folding front wheeled walker zinc acetate 25 mg PO DAILY PFSH Medical History (Updated 01/27/25 @ 00:00 by Background Bessie) Asthma Osteoarthritis GERD (gastroesophageal reflux disease) Jaundice SOB (shortness of breath) Prophylactic antibiotic IBS (irritable bowel syndrome) Insomnia Hx of cold sores Generalized anxiety disorder HTN (hypertension) Endometriosis Back pain Chronic eczema Cervical spondylosis Allergic rhinitis Surgical History (Updated 01/27/25 @ 00:00 by Background Reaganemon) History of arthroscopy of right shoulder (~2022) Hx of rotator cuff surgery History of partial hysterectomy H/O colonoscopy Hx of total knee arthroplasty Social History Household Members: Spouse Housing: House Are you a primary health care recruiter to a significant other at home: No Do you presently have visiting nurse or other home services: No Patient Tobacco Use Status: Never used Tobacco service: No Physical Exam Vital Signs: BMI result Body Mass Index 23.3 Extrem Other: Right knee examination shows that the surgical incision is well healed, no erythema, range of motion from full extension to 120 degrees of flexion, her patella tracks well Assessment & Plan Assessment & Plan (1) Right knee pain: Code(s): M25.561 - Pain in right knee Category: Medical Plan Ms. Ugalde continues to do very well after undergoing right total knee replacement surgery on 01/23/2025. She will continue going to formal physical therapy for now. She will gradually progress to a home exercise program. She does know to take antibiotics before any dental work. I did refill her prescriptions for oxycodone and Celebrex. She will contact me prior to her follow-up appointment in 2 months should any questions or concerns arise. Feel free to call me at any time should questions regarding her orthopedic management arise. Medications: New celecoxib (Celebrex) 200 mg PO DAILY PRN 30 caps 3RF pain oxycodone Partial Fill upon patient request. 5 mg PO Q8H PRN 30 tabs 0RF pain Coding Level of Care Code Global (68156) Diagnoses Right knee pain M25.561
[2025-03-08 10:20] VITALS: BMI 23.3
--- OUTSIDE RECORDS SUMMARY | 2025-03-08 11:05 | XMS_ITS | Data Portability ---
Author Organization [place] [facility] [place] Address [address] [place] [address] Assessment Encounter Date Assessment Date Assessment LastModified [...] mg tablet 2022 023 [email or web address] [id number], [address] [place], [place], [phone], 09:18:37 Patient TargetsNo targets recorded. Patient InstructionsNo instructions recorded. Reason for Referral None Reported. Problems Name Problem SNOMED Code Status Onset Date Resolution Date Notes Provider Name and Address Organization Details Recorded Time Laceration of left thumb [id number] 9107 Active 2022 KHANH angeles [facility] 3 08:53:47 Problem Notes None recorded. Procedures Surgical History Date Name Laterality Status Provider Name and Address Organization Details Recorded Time 3 Laceration repair with glue completed KHANH MACIAS [facility] 09/03/2022 09:02:21 Imaging Results None recorded. Procedure Notes None recorded. Medical Equipment None Reported. Allergies Allergen ID Allergen Name Allergen Category Reaction Reaction Severity Criticality Documentation Date Start Date Code Code System Note Provider Name and Address Organization Details Recorded Time 815005 Product containin g penicilli n (product) medicatio n abdominal pain Not available low 06/28/2022 09879 8001 [facility]05 203290 Substance with sulfonami de structure and antibacte rial mechanism of action (substanc e) medicatio n anaphylax is Not available high 06/28/2022 84675 8003 SNOMED KHANHBhumi angeles, [facility] 2 12:54:24 Medications Name Sig [...] Updated DateTime 3 170.18 cm 25.1 kg/m2 47104.7 8 g 90 /min 97 % 97 % 97.6 [degF] PARIS LUNA RN [facility] 3 14:57:23 Date Recorded Respiratory rate Heart rate Oxygen saturation Oxygen saturation in Arterial blood by Pulse oximetry Body height Body mass index (BMI) Body weight Body temperature Systolic And Diastolic Provider Name and Address Organization Details Last Updated DateTime 2 16 /min 89 /min 97 % 97 % 170.18 cm 25.1 kg/m2 03939.7 8 g 97.6 [degF] 140/89 mm[Hg] Zoe Sutton RN [address] [place] [address], [phone], [facility] 12:37:24 Social History None recorded. Functional Status None recorded. Mental Status None recorded. Family History Nothing Reported. Medical History No medical history recorded. Gynecological HistoryNo gynecological history recorded. Obstetrics History GPAL:G 0 P 0 0 0 0 Immunizations Vaccine Type Date Status Note Provider Nam e and Address Organization Details Recorded Time Tdap 08/30/2022 completed KHANH MACIAS null, [facility] 09/03/2022 09:18:37 Past Encounters Encounter ID Performer Location Encounter Start Date Encounter Closed Date Diagnosis/Indication Diagnosis SNOMED-CT Code Diagnosis ICD10 Code Diagnosis Note [id number] Khanhbhumi Macias[address] [address] 06/28/2022 11:52:24 06/28/2022 13:39:44 Foreign body - finger [id number] S60.452A RIGHT MIDDLE FINGERI was able to [...] nt left in a comfortabl e mood. [id number] Khanh [place] [address] 08/30/2022 14:27:18 08/30/2022 15:11:15 Administration of diphtheria, pertussis, and tetanus vaccine 574758352 Z23 Laceration of left thumb 5658810063 3848214 S61.012A Advised to keep wound clean and dry for the next 24 hours. After 24 hours, may get wound wet. Recommend daily wound care including washing area with gentle soap and water, applicatio n of antibiotic ointment and clean dressing. Advised not to soak wound. Dayana is traveling to [facility] in 2 days.Discu ssed signs of infection including fever, redness, swelling, and/or purulent drainage (pus). I will prescribe Doxycyclin e which she will fill and take with her to [place]. I advised her to start Doxycyclin e [...] Member ID Guarantor Name 08/30/2022 1 JOCELYNNTNA [id number] Dayana Ugalde [id number] 1 Dayana Ugalde Notes Date Note Type [...] skin or numbness or tingling. KHANH angeles, [facility] 07/02/2022 13:20:30 08/30/2022 text/html [...] Just prior to arrival was at the [facility] trying to scrap the old sticker off her car with a razor blade and it slipped and cut her L thumb. I soaked the thumb in warm soapy water and then held pressure to stop the bleeding. KHANH angeles, [facility] 09/03/2022 09:20:44 OBGyn Episode No OBEpisode recorded.
--- OUTSIDE RECORDS SUMMARY | 2025-03-08 11:05 | XMS_ITS | Patient Health Record ---
Author Organization [facility] Address [address] 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 Plan Of Treatment Pending Test Test Name Order Date X ray : Foot, right 3V 10/30/2020 03505, J0702- Neuroma/Injection 10/31/19 99595, J0702- Neuroma/Injection 03/05/20 69236, J0702- Neuroma/Injection 04/03/20 04651, J0702- Neuroma/Injection 01/22/20 18 Insurance Providers Payer Name Payer Address Payer Phone Subscriber Number Group Number Insured Name Patient Relationship to Insured Coverage Start Date Coverage End Date [employer] [address] [place] [address] [id number] Dayana Ugalde Self - patient is the insured Medical (General) History Medical History History ICD Code Back,Hip,and Knee pain Sciatica chronic sinusitis Chicken pox Surgical History Surgery Date(Month/Year) left shoulder rotator 4 yrs ago knee surgery, left 20 yrs ago hysterectomy 2 yrs ago left knee replacement 12/2022
--- OUTSIDE RECORDS SUMMARY | 2025-03-08 11:05 | XMS_ITS | Clinical Summary ---
Author Organization [facility] Intern [facility] lin Address [address] [place] [address] Care Team Providers Care Machine Taper Name Role Phone No, Pcp MANUFACTURING LEADER Primary Care Provider Unavailabl e Social History [...] Adults 18 yrs or above (or HM Modifier)([facility]) 1983 Hepatitis C Virus Infection in Adolescents and Adults: Screening (or Modifier) ([facility]) [address] [facility] Screening Reminder: Ronna daniels for all adults ([facility]) 1983 Tobacco Smoking Cessation: i n Adults excluding Women: Behavioral and Pharmacotherapy Interventions ([facility]) 1983 DTaP/Tdap/Td Vaccines ([facility]) (1 - Tdap) 1984 Cervical Cancer Screenin 1-65 yrs of age (or Modifier) 1986 Cervical Cancer Screening: P ap every 3 yrs pts age 21-65 1986 Cervical Cancer: Pap Screeni ng with Modifier timing ([facility]) 1986 Cervical Cancer: hrHPV alone or with cotesting Pap for Pts 30-65yrs screening every 5yrs ([facility]) 1986 Colorectal Cancer Screening 45 -75 Yrs (or HM Modifier ) 2010 Colorectal Cancer: FLEXIBLE SIGMOIDOSCOPY Screening every 5 yrs 2010 Colorectal Cancer: Fecal Imm unochemical Test (FIT) Annually [facility] 2010 Colorectal Cancer: High-sens itivity gFOBT Screening Annually [facility] 2010 Colorectal Cancer: Stool Col oguard Screening every 3 yrs 2010 Colorectal Cancer:CT Colonography Screening every 5 yr s 2010 Breast Cancer: Screening Ronna jeremiah age 50-74 yrs (or HM Modifier)([facility]) 2015 Pneumococcal Vaccination Scr eening: Patients 50+ yrs of age ([facility]) (1 of 1 - PCV) 2015 Zoster/Shingles Vaccine Seri es Screening: Adults aged 18+ yrs (or HM Modifiers)([facility]) (1 of 2) 2015 COVID-19 Vaccine Screening: Initial Series and Booster Status ([facility]) (2023- season) 2024 Flu Vaccination: Yearly for ages 18mos through 64 years (or Modifier)([facility]) 03/17/2025 Medical Devices Not on file Care Teams Machine Taper Relationship Specialty Start Date End Date No, Pcp, MANUFACTURING LEADER N/A Do not use PCP - General Family Medicine 02/15/20
== END 2025-03-08 10:39 | disposition home or self-care (01) ==
LOC: HO.HOS 10:10
PROVIDERS: Visit Provider Orthopaedic Surgery
DX: M25.561 Pain in right knee (principal)
CPT/HCPCS: 99024

== ENCOUNTER 2025-05-09 09:14 | Outpatient (AMB) | payer OTHER, SELFPAY ==
--- NOTE | 2025-05-09 09:20 | A.OFFVIS_ITS ---
Intake Visit Reasons: PO: R TKA w/ 01/23/25-2-3 month follow up Intake Note: Dayana is a 60 year old female who presents with complaints of mild intermittent discomfort in her right knee after undergoing right total knee replacement surgery on 01/23/2025. She continues to go to physical therapy. She has also returned to her yoga class 2-3 times per week. She denies any fevers or chills. She plans to return to skiing in September. Allergies Sulfa (Sulfonamide Antibiotics) Allergy (Severe, Verified 05/09/25 09:24) Anaphylaxis sulfamethoxazole (From Bactrim) Allergy (Severe, Verified 05/09/25 09:24) Anaphylaxis trimethoprim (From Bactrim) Allergy (Severe, Verified 05/09/25 09:24) Anaphylaxis Penicillins Allergy (Unknown, Verified 05/09/25 09:24) Childhood allergy, GI Upset gluten Adverse Reaction (Mild, Verified 05/09/25 09:24) Rash Medication List - Last Reviewed 05/09/25 by Minerva Voss acetaminophen ER (Tylenol Arthritis Pain) 650 mg PO Q12H PRN albuterol sulfate 90 mcg/actuation 2 puffs inhalation Q6-8H PRN amlodipine 2.5 mg PO DAILY celecoxib (Celebrex) 200 mg PO DAILY PRN cholecalciferol (vitamin D3) (Vitamin D3) 25 mcg PO DAILY gabapentin 400 mg PO BID gabapentin 100 mg PO BID PRN lulyvfaxrlr-oqwkmefto-dgb C-Mn 500-400 mg (Glucosamine Chondroitin Maximum Strength) 1 cap PO DAILY wcavuube-kim-gknf-FA-vit K-lut 8 mg iron-400 mcg-50 mcg (Centrum Silver Women) 1 tab PO DAILY omeprazole 20 mg PO BID PRN trazodone 25 mg PO BEDTIME valacyclovir 500 mg PO TID PRN vitamin B complex 1 tab PO DAILY walker Folding front wheeled walker zinc acetate 25 mg PO DAILY PFSH Medical History (Updated 01/27/25 @ 00:00 by Background Daemon) Asthma Osteoarthritis GERD (gastroesophageal reflux disease) Jaundice SOB (shortness of breath) Prophylactic antibiotic IBS (irritable bowel syndrome) Insomnia Hx of cold sores Generalized anxiety disorder HTN (hypertension) Endometriosis Back pain Chronic eczema Cervical spondylosis Allergic rhinitis Surgical History (Updated 01/27/25 @ 00:00 by Background Daemon) History of arthroscopy of right shoulder (~2022) Hx of rotator cuff surgery History of partial hysterectomy H/O colonoscopy Hx of total knee arthroplasty Social History Household Members: Spouse Housing: House Are you a primary care process manager to a significant other at home: No Do you presently have visiting nurse or other home services: No Patient Tobacco Use Status: Never used Tobacco service: No Physical Exam Const Other: Well-nourished well-developed very friendly female awake alert and oriented x3 in no acute distress Extrem Other: Right knee examination shows that the surgical incision is well healed, no erythema, full active extension and flexion to 130 degrees, her patella tracks well Assessment & Plan Assessment & Plan (1) Right knee pain: Code(s): M25.561 - Pain in right knee Category: Medical Plan Ms. Ugalde continues to do very well after undergoing right total knee replacement surgery on 01/23/2025. She will continue with her physical therapy exercises. She does know to take antibiotics before any dental work. She will contact me prior to her follow-up appointment in 3 months should any questions or concerns arise. Feel free to call me at any time should questions regarding her orthopedic management arise. I spent 21 minutes in reviewing the patient's records and imaging studies, paola rand the patient and documenting in the medical record. Medications: New clindamycin HCl Take two caps (600 mg) one hour before any dental work. 600 mg (2 x 300 mg) PO ONCE 10 caps 3RF Coding Level of Care Code Est Pt Level 3 (98509) Complex EM visit Add On G2211 Diagnoses Right knee pain M25.561
== END 2025-05-09 09:33 | disposition home or self-care (01) ==
LOC: HO.HOS 09:15
PROVIDERS: Visit Provider Orthopaedic Surgery
DX: M25.561 Pain in right knee (principal)
CPT/HCPCS: 99213; G2211

== ENCOUNTER 2025-08-09 08:20 | Outpatient (REF) | payer OTHER, SELFPAY ==
--- NOTE | ~2025-08-09 | XR_ITS ---
EXAMINATION: XR KNEE, RIGHT CLINICAL INFORMATION: M25.561 - Pain in right knee COMPARISON: X-ray 02/09/2025 TECHNIQUE: Three views of the right knee. FINDINGS: Total knee arthroplasty with normal alignment. Hardware is intact without complications. No acute periprosthetic fracture. No significant joint effusion. No abnormal soft tissue calcification. XR/XR knee RT 3V IMPRESSION: Intact left knee arthroplasty. Electronically signed by: Devan Cox MD 08/11/2025 11:33 AM CELENA
--- OUTSIDE RECORDS SUMMARY | 2025-08-11 08:23 | XMS_ITS | Data Portability ---
Author Organization [place] - [facility] - [place] Address [address] [place] [address] Assessment Encounter Date Assessment Date Assessment LastModified [...] mg tablet 2022 023 [email or web address] [id number], [address], [place], [phone], 09:18:37 Patient TargetsNo targets recorded. Patient InstructionsNo instructions recorded. Reason for Referral None Reported. Problems Name Problem SNOMED Code Status Onset Date Resolution Date Notes Provider Name and Address Organization Details Recorded Time Laceration of left thumb 8124218980970 9107 Active 2022 KHANH angeles [facility] 3 08:53:47 Problem Notes None recorded. Procedures Surgical History Date Name Laterality Status Provider Name and Address Organization Details Recorded Time 3 Laceration repair with glue completed KHANH MOREAU [facility] 09/03/2022 09:02:21 Imaging Results None recorded. Procedure Notes None recorded. Medical Equipment None Reported. Allergies Allergen ID Allergen Name Allergen Category Reaction Reaction Severity Criticality Documentation Date Start Date Code Code System Note Provider Name and Address Organization Details Recorded Time 132123 Product containin g penicilli n (product) medicatio n abdominal pain Not available low 06/28/2022 25741 8001 SNOMED KHANH angeles, [facility] 2 12:54:05 610220 Substance with sulfonami de structure and antibacte rial mechanism of action (substanc e) medicatio n anaphylax is Not available high 06/28/2022 33297 8003 SNOMED KHANH angeles, [facility] 2 12:54:24 Medications Name Sig Start Date [...] Updated DateTime 3 170.18 cm 25.1 kg/m2 82101.7 8 g 90 /min 97 % 97.6 [degF] PARIS LUNA RN [facility] 3 14:57:23 Date Recorded Respiratory rate Heart rate Oxygen saturation Body height Body mass index (BMI) Body weight Body temperature Systolic And Diastolic Provider Name and Address Organization Details Last Updated DateTime 2 16 /min 89 /min 97 % 170.18 cm 25.1 kg/m2 30402.7 8 g 97.6 [degF] 140/89 mm[Hg] Zoe Sutton RN [address] [place] [address], [phone], [facility] 2 12:37:24 Social History None recorded. Functional Status None recorded. Mental Status None recorded. Family History Nothing Reported. Medical History No medical history recorded. Gynecological HistoryNo gynecological history recorded. Obstetrics History GPAL:G 0 P 0 0 0 0 Immunizations Vaccine Type Date Status Note Provider Nam e and Address Organization Details Recorded Time Tdap 08/30/2022 completed KHANH MOREAU [facility] 09/03/2022 09:18:37 Past Encounters Encounter ID Performer Location Encounter Start Date Encounter Closed Date Diagnosis/Indication Diagnosis SNOMED-CT Code Diagnosis ICD10 Code Diagnosis IMO Codes Diagnosis Note [id number] Khanh [place] [address] 06/28/2022 11:52:24 06/28/2022 13:39:44 Foreign body - finger [id number] S60.452A RIGHT MIDDLE FINGERI was able to [...] nt left in a comfortabl e mood. [id number] Khanh [place] [address] 08/30/2022 14:27:18 08/30/2022 15:11:15 Administration of diphtheria, pertussis, and tetanus vaccine 647964249 Z23 Laceration of left thumb 9767919660 8732909 S61.012A Advised to keep wound clean and dry for the next 24 hours. After 24 hours, may get wound wet. Recommend daily wound care including washing area with gentle soap and water, applicatio n of antibiotic ointment and clean dressing. Advised not to soak wound. Dayana is traveling to [facility] in 2 days.Discu ssed signs of infection including fever, redness, swelling, and/or purulent drainage (pus). I will prescribe Doxycyclin e which she will fill and take with her to [place]. I advised her to start Doxycyclin e [...] Alston Member ID Guarantor Name 08/30/2022 1 [facility] [id number] Dayana Ugalde [id number] Dayana Ugalde Notes Date Note Type [...] skin or numbness or tingling. KHANH angeles, [facility] 07/02/2022 13:20:30 08/30/2022 text/html ROS as noted [...] Just prior to arrival was at the [facility] trying to scrap the old sticker off her car with a razor blade and it slipped and cut her L thumb. I soaked the thumb in warm soapy water and then held pressure to stop the bleeding. KHANH angeles, [facility] 09/03/2022 09:20:44 OBGyn Episode No OBEpisode recorded.
--- OUTSIDE RECORDS SUMMARY | 2025-08-11 08:23 | XMS_ITS | Patient Health Record ---
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 Plan Of Treatment Pending Test Test Name Order Date X ray : Foot, right 3V 10/30/2020 69157, J0702- Neuroma/Injection 10/31/19 23668, J0702- Neuroma/Injection 03/05/20 24396, J0702- Neuroma/Injection 04/03/20 24974, J0702- Neuroma/Injection 01/22/20 18 Insurance Providers Payer Name Payer Address Payer Phone Subscriber Number Group Number Insured Name Patient Relationship to Insured Coverage Start Date Coverage End Date A[employer] [address] [place] [address] [id number] Dayana Ugalde Self - patient is the insured Medical (General) History Medical History History ICD Code Back,Hip,and Knee pain Sciatica chronic sinusitis Chicken pox Surgical History Surgery Date(Month/Year) left shoulder rotator 4 yrs ago knee surgery, left 20 yrs ago hysterectomy 2 yrs ago left knee replacement 12/2022
--- OUTSIDE RECORDS SUMMARY | 2025-08-11 08:23 | XMS_ITS | Clinical Summary ---
Author Organization [facility] Address [address] [place] [address] Care Team Providers Care Plant And Instrument Engineer Name Role Phone No, Pcp COMMERCIAL MANAGEMENT ACCOUNTANT Primary Care Provider Unavailabl e Social History Tobacco Use Types Packs/Day Years Used Date Smoking Tobacco: Never Assessed Comments Unknown Sex and Gender Information Value Date Recorded Sex Assigned at Not on file Legal Sex Female 10:31 AM EDT Gender Identity Not on file Sexual Orientation Not on file Plan of Treatment Not on file Medical Devices Not on file Care Teams Plant And Instrument Engineer Relationship Specialty Start Date End Date No, Pcp, COMMERCIAL MANAGEMENT ACCOUNTANT N/A Do not use PCP - General Family Medicine 02/15/20
== END 2025-08-09 08:21 | disposition home or self-care (01) ==
LOC: HO.HOSX 08:20
PROVIDERS: Visit Provider Orthopaedic Surgery
DX: M25.561 Pain in right knee (principal); Z96.651 Presence of right artificial knee joint
CPT/HCPCS: 73562

== ENCOUNTER 2025-08-09 11:39 | Outpatient (AMB) | payer OTHER, SELFPAY ==
--- OUTSIDE RECORDS SUMMARY | 2025-08-08 23:59 | XMS_ITS | Continuity of Care Document ---
Author Organization [facility] Address [address] [facility] [place] [address]- Care Team Providers Care Civil Project Engineer Name Role Phone Oc De La O MD Primary Care Physician Encounter 08/01/25 - 08/08/25 [facility] [address], [address] [place], [place] [address] Attending Physician: Robe Nguyen DO Admitting Physician: Robe Nguyen DO Referring Physician: Robe Nguyen DO Encounter Type: OutPatient One Time Allergies, Adverse Reactions, Alerts Substance Criticality Severity [...] Recorded tetanus/diphtheria/pertussis, acel(Tdap) 9 03/31/24 Given SARS-CoV-2(COVID-19)mRNA-LNP vac(din955) 09/25/23 Recorded [id number] bivalent booster vax 05/16/22 Recorded zoster vaccine, [...] tetanus-diphtheria toxoids (Td) 06/17/00 Given 1Result Comment: [id number] given w/out incident 2Result Comment: [id number] given w/ out incident 3Result Comment: done @ [facility] 4Result Comment: [06/07/2018] given w/out incident [facility]: [id number] 5Result Comment: [06/02/2016] pt. tolerated inj. without complications...[place] 6Admin Note: done @ [facility], form received 7Admin Note: vis sheet given. 8Admin Note: done @ [facility] 9Result Comment: [id number] given w/out incident 10Admin Note: hep A [...] Date: 09/18/23 Stop Date: 09/28/23 Status: Ordered Medication Dispense Status: Completed Quantity: 30.0 Unit: tablet Total Allowed Fills: 1 Fills Dispensed: 0 Albuterol (Eqv-ProAir HFA) 90 mcg/inh inhalation aerosol 2 puffs, Inhalation, 4 times a day, PRN NEEDED FOR WHEEZING, # 8.5 Gm, 5 Refills, Maintenance, 09/24/23 1:04:00 PM EST, [facility] # [facility], 18, INHALE 2 PUFFS BY MOUTH FOUR TIMES A DAY NEEDED FOR WHEEZING, 169, cm, 09/18/23 9:43:00 EST, Height, 75.4, kg, 01/18/23 5:33:00 EDT, Dry Weight Start Date: 09/24/23 Status: Ordered Medication Dispense Status: Completed Quantity: 8.5 Unit: g Total Allowed Fills: 1 Fills Dispensed: 0 amLODIPine 2.5 mg oral tablet 1 tablet, By Mouth, Daily, # 90 tablet, 3 Refills, Maintenance, 04/04/25 8:13:00 AM EDT, [facility] # [facility], 169, cm, 04/04/25 8:03:00 EDT, Height, 70, kg, 04/04/25 8:03:00 EDT, Dry Weight Start Date: 04/04/25 Stop Date: 03/30/26 Status: Ordered Medication Dispense Status: Completed Quantity: 90.0 Unit: tablet Total Allowed Fills: 4 Fills Dispensed: 0 Centrum Silver Ultra Women's By Mouth, Daily, 0 Refills, Maintenance, 09/18/23 9:51:00 AM EST, Partial fill upon patient request if the prescription is for a schedule II opioid drug. Start Date: 09/18/23 Status: Ordered Medication Dispense Status: Completed Total Allowed Fills: 1 Fills Dispensed: 0 estradiol 10 mcg vaginal tablet See Instructions, 1 tablet Vaginally twice a week, 0 Refills, Maintenance, 03/31/24 8:08:00 AM EDT, Partial fill upon patient request if the prescription is for a schedule II opioid drug. Start Date: 03/31/24 Status: Ordered Medication Dispense Status: Completed Total Allowed Fills: 1 Fills Dispensed: 0 gabapentin 400 mg oral capsule 400 mg, 1, capsule, By Mouth, 2 times a day, # 60 capsule, Refills 0, Maintenance, 09/18/23 9:49:00 AM EST, Partial fill upon patient request if the prescription is for a schedule II opioid drug. Start Date: 09/18/23 Stop Date: 10/18/23 Status: Ordered Medication Dispense Status: Completed Quantity: 60.0 Unit: capsule Total Allowed Fills: 1 Fills Dispensed: 0 Medrol Dosepak 4 mg oral tablet See Instructions, as directed on package labeling, # 1 pack/packet, 0 Refills, Maintenance, :47:00 AM EST, [facility] # [facility], Partial fill upon patient request if the prescription is for aschedule II opioid drug., 169, cm, 04/04/25 8:03:00 EDT, Height, 70, kg, 04/04/25 8:03:00 EDT, Dry Weight Start Date: 06/22/25 Status: Ordered Medication Dispense Status: Completed Quantity: 1.0 Unit: pack/packet Total Allowed Fills: 1 Fills Dispensed: 0 traZODone 50 mg oral tablet 1, tablet, By Mouth, Daily at bedtime, # 90 tablet, Refills 2, Tot. Refills 2, Maintenance, 11/21/24 12:35:00 PM EDT, Route to Pharmacy Electronically, [facility], 169, cm, 07/29/24 10:47:00 EST, Height, 73, kg, 03/31/24 8:05:00 EDT, Dry Weight Start Date: 11/21/24 Stop Date: 08/18/25 Status: Ordered Medication Dispense Status: Completed Quantity: 90.0 Unit: tablet Total Allowed Fills: 3 Fills Dispensed: 0 valACYclovir 500 mg oral tablet 1, tablet, By Mouth, Every 8 hours, # 15 tablet, Refills 6, Tot. Refills 6, Maintenance, 04/04/25 8:14:00 AM EDT, Route to Pharmacy Electronically, [facility] # [facility], 169, cm, 04/04/25 8:03:00 EDT, Height, 70, kg, 04/04/25 8:03:00 EDT, Dry Weight Start Date: 04/04/25 Stop Date: 05/09/25 Status: Ordered Medication Dispense Status: Completed Quantity: 15.0 Unit: tablet Total Allowed Fills: 7 Fills Dispensed: 0 Vitamin B Complex oral tablet, extended release By Mouth, Daily, 0 Refills, Maintenance, 04/04/25 9:11:00 AM EDT, Partial fill upon patient request if the prescription is for a schedule II opioid drug. Start Date: 04/04/25 Status: Ordered Medication Dispense Status: Completed Total Allowed Fills: 1 Fills Dispensed: 0 Vitamin D3 1000 intl units oral capsule 1 capsule = 25 mcg, By Mouth, Daily, 0 Refills, Maintenance, 09/18/23 9:51:00 AM EST, Partial fill upon patient request if the prescription is for a schedule II opioid drug. Start Date: 09/18/23 Stop Date: 10/18/23 Status: Ordered Medication Dispense Status: Completed Total Allowed Fills: 1 Fills Dispensed: 0 Problem List Condition Confirmation Course Effective Dates Status Health Status Informant Allergic rhinitis Confirmed Active Cervical spondylosis Confirmed Active Chronic eczema Confirmed 07/06/12 Active Chronic low back pain Confirmed Active ENDOMETRIOSIS Confirmed 06/2008 Active Essential hypertension Confirmed Active FH: Breast cancer (mom) Confirmed Active FH: Cancer (type ?) grandparents Confirmed Active FH: Diabetes mellitus (dad) Confirmed Active FH: Glaucoma (dad) Confirmed Active Generalized anxiety disorder Confirmed 2006 Active History of herpes labialis Confirmed Active S/P right knee arthroscopy Confirmed 01/23/25 Active History of arthroplasty of left knee Confirmed 01/06/23 Active Hypercholesterolemia Confirmed 03/22/24 Active Insomnia Confirmed Active Irritable bowel syndrome Confirmed Active Osteoarthritis of right knee Confirmed 12/21/24 Active Results Radiology Reports * Exam Date Time Procedure Performing Provider Status 08/01/25 3:56 PM Lumbar Spine Min 4 Views Auth (Verified) Notes: (Lumbar Spine Min 4 Views) Reason For Exam: strain of muscle RESULT: Lumbar Spine Min 4 Views Lumbosacral spine 5 views dated August 01, 2025. Comparison films are from October 19, 2023. HISTORY: Pain. The lumbar spine shows a minimal convex right scoliosis. Intervertebral disc spaces are mildly narrowed at L2-3 and L5-S1 with associated degenerative osteophytes. There is a vacuum disc phenomenon at L2-3. The facet joints align normally. No locked or perched facets are seen. IMPRESSION: Degenerative changes. No evidence of fracture or dislocation. Examination 27146. Thank you for allowing me to participate in the care of this patient. WSN: [id number] Ordering Physician: Robe Nguyen Dictated By: Enoc John MD Dictated Date/Time: 08/04/25 9:24 am Reviewed By: Enoc John MD Signed By: Enoc John MD Signed Date/Time: 08/04/25 9:24 am Transcribed By: ROSALIA Transcribed Date/Time: 08/04/25 9:24 am * Exam Date Time Procedure Performing Provider Status 08/01/25 3:56 PM Thoracic Spine 2 Views A ut (Verified) Notes: (Thoracic Spine 2 Views) Reason For Exam: strain of muscle RESULT: Thoracic Spine 2 Views Thoracic spine 3 views dated August 01, 2025. No prior studies are available. HISTORY: Pain. FINDINGS: The vertebral bodies are normal in height. There is loss of intervertebral disc space height and osteophyte formation which is mild throughout. Paravertebral soft tissues are within normal limits. In the visualized cervical spine, there is loss of intervertebral disc space height at C5-6 and C6-7 with associated osteophyte formation and mild stairstep retrolisthesis of C5 on C6 and C6 on C7. IMPRESSION: Mild degenerative changes. No evidence of acute osseous abnormality. More moderate degenerative changes in the cervical spine Examination 29202. Thank you for allowing me to participate in the care of this patient. WSN: [id number] Ordering Physician: Robe Nguyen Dictated By: Enoc John MD Dictated Date/Time: 08/04/25 9:22 am Reviewed By: Enoc John MD Signed By: Enoc John MD Signed Date/Time: 08/04/25 9:22 am Transcribed By: ROSALIA Transcribed Date/Time: 08/04/25 9:22 am * Exam Date Time Procedure Performing Provider Status 08/01/25 3:56 PM Sacrum and Coccyx Min 2 Views Auth (Verified) Notes: (Sacrum and Coccyx Min 2 Views) Reason For Exam: strain of muscle RESULT: Sacrum and Coccyx Min 2 Views Sacrum and Coccyx Min 2 Views Reason: strain of muscle - COMPARISON: None FINDINGS: No bone lesions or fractures. No arthritic changes of the SI joints. Normal alignment of the sacrumand coccyx. Normal soft tissues. IMPRESSION: No acute abnormality. WSN: [id number] Ordering Physician: Robe Nguyen Dictated By: Marko Ballard MD, V Dictated Date/Time: 08/01/25 4:08 pm Reviewed By: Marko Ballard MD, V Signed By: Marko Ballard MD, V Signed Date/Time: 08/01/25 4:08 pm Transcribed By: ROSALIA Transcribed Date/Time: 08/01/25 4:08 pm Social History Social History Type Response Smoking Status Never (less than 100 in lifetime) entered on: 12/22/22 Sexual Orientation Self described orien tation: ; Straight or heterosexual Sex Sex Representation Female (finding) Patient Care team information Care Team Personnel Name: Miguel Angel Townsend RN Position: S RN Member Role: Primary Care Nurse Name: Oc De La O MD Position: S Physician - Primary Care Member Role: PCP Address: [address] [place] [address] [facility] [address] Telecom: Name: Reentta Welch RN Position: [facility] RN Member Role: Primary Care Nurse Care Team Related Persons Name: ILYA NOVA Insurance Providers Guarantor name: MARYLOU NOVA Health Plan Information #: 1 Payer: [employer] Payer Identifier: SIMONA Member Number: [id number] Group Number: [id number] Subscriber Identifier: [id number] Relationship to Subscriber: self Coverage Type: Commercial Managed Care - HMO Coverage Verification Date: NA Telecom: NA Address:
--- OUTSIDE RECORDS SUMMARY | 2025-08-09 11:42 | XMS_ITS | Data Portability ---
Author Organization [place] - [facility] [place] Address [address] [place] [address] Assessment Encounter Date Assessment Date Assessment LastModified [...] mg tablet 2022 023 [email or web address] [id number], [address], [place], [phone], 09:18:37 Patient TargetsNo targets recorded. Patient InstructionsNo instructions recorded. Reason for Referral None Reported. Problems Name Problem SNOMED Code Status Onset Date Resolution Date Notes Provider Name and Address Organization Details Recorded Time Laceration of left thumb 6513535028800 9107 Active 2022 KHANH angeles [facility] 3 08:53:47 Problem Notes None recorded. Procedures Surgical History Date Name Laterality Status Provider Name and Address Organization Details Recorded Time 3 Laceration repair with glue completed KHANH MOREAU [facility] 09/03/2022 09:02:21 Imaging Results None recorded. Procedure Notes None recorded. Medical Equipment None Reported. Allergies Allergen ID Allergen Name Allergen Category Reaction Reaction Severity Criticality Documentation Date Start Date Code Code System Note Provider Name and Address Organization Details Recorded Time 556186 Product containin g penicilli n (product) medicatio n abdominal pain Not available low 06/28/2022 17936 8001 SNOMED KHANH angeles, [facility] 2 12:54:05 432728 Substance with sulfonami de structure and antibacte rial mechanism of action (substanc e) medicatio n anaphylax is Not available high 06/28/2022 34813 8003 SNOMED KHANH angeles, [facility] 2 12:54:24 Medications Name Sig Start Date [...] (BMI) Body weight Heart rate Oxygen saturation Body temperature Provider Name and Address Organization Details Last Updated DateTime 3 170.18 cm 25.1 kg/m2 61709.7 8 g 90 /min 97 % 97.6 [degF] PARIS LUNA RN [facility] 3 14:57:23 Date Recorded Respiratory rate Heart rate Oxygen saturation Body height Body mass index (BMI) Body weight Body temperature Systolic And Diastolic Provider Name and Address Organization Details Last Updated DateTime 2 16 /min 89 /min 97 % 170.18 cm 25.1 kg/m2 61957.7 8 g 97.6 [degF] 140/89 mm[Hg] Zoe Sutton RN [address] [place] [address], [phone], [facility] 2 12:37:24 Social History None recorded. Functional Status None recorded. Mental Status None recorded. Family History Nothing Reported. Medical History No medical history recorded. Gynecological HistoryNo gynecological history recorded. Obstetrics History GPAL:G 0 P 0 0 0 0 Immunizations Vaccine Type Date Status Note Provider Nam e and Address Organization Details Recorded Time Tdap 08/30/2022 completed KHANH MOREAU [facility] 09/03/2022 09:18:37 Past Encounters Encounter ID Performer Location Encounter Start Date Encounter Closed Date Diagnosis/Indication Diagnosis SNOMED-CT Code Diagnosis ICD10 Code Diagnosis IMO Codes Diagnosis Note [id number] Khanh [place] [address] 06/28/2022 11:52:24 06/28/2022 13:39:44 Foreign body - finger 608895797 S60.452A RIGHT MIDDLE FINGERI was able to [...] treatment plan and guidelines for follow up care.Nohemie nt left in a comfortabl e mood. [id number] Khanh [place] [address] 08/30/2022 14:27:18 08/30/2022 15:11:15 Administration of diphtheria, pertussis, and tetanus vaccine 198601275 Z23 Laceration of left thumb 1595722642 8165327 S61.012A Advised to keep wound clean and dry for the next 24 hours. After 24 hours, may get wound wet. Recommend daily wound care including washing area with gentle soap and water, applicatio n of antibiotic ointment and clean dressing. Advised not to soak wound. Dayana is traveling to [facility] in 2 days.Discu ssed signs of infection including fever, redness, swelling, and/or purulent drainage (pus). I will prescribe Doxycyclin e which she will fill and take with her to [place]. I advised her to start Doxycyclin e [...] Alston Member ID Guarantor Name 08/30/2022 1 [facility] [id number] Dayana Ugalde [id number] 1 Dayana Ugalde Notes Date Note Type Note Provider Name and Address Organization Details Recorded Time 06/28/2022 text/html ROS as noted in the HPI This is a 57 y/o female who [...] skin or numbness or tingling. KHANH angeles, [facility] 07/02/2022 13:20:30 08/30/2022 text/html ROS as noted in the HPI This is a 57 y/o female who [...] Just prior to arrival was at the [facility] trying to scrap the old sticker off her car with a razor blade and it slipped and cut her L thumb. I soaked the thumb in warm soapy water and then held pressure to stop the bleeding. KHANH angeles, [facility] 09/03/2022 09:20:44 OBGyn Episode No OBEpisode recorded.
--- OUTSIDE RECORDS SUMMARY | 2025-08-09 11:43 | XMS_ITS | Clinical Summary ---
Author Organization [facility] Address [address] [place] [address] Care Team Providers Care Accounting Instructor Name Role Phone No, Pcp CONTENT COORDINATOR Primary Care Provider Unavailabl e Social History Tobacco Use Types Packs/Day Years Used Date Smoking Tobacco: Never Assessed Comments Unknown Sex and Gender Information Value Date Recorded Sex Assigned at Not on file Legal Sex Female 10:31 AM EDT Gender Identity Not on file Sexual Orientation Not on file Plan of Treatment Not on file Medical Devices Not on file Care Teams Accounting Instructor Relationship Specialty Start Date End Date No, Pcp, CONTENT COORDINATOR N/A Do not use PCP - General Family Medicine 02/15/20
--- OUTSIDE RECORDS SUMMARY | 2025-08-09 11:43 | XMS_ITS | Patient Health Record ---
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 Plan Of Treatment Pending Test Test Name Order Date X ray : Foot, right 3V 10/30/2020 80912, J0702- Neuroma/Injection 10/31/19 85803, J0702- Neuroma/Injection 03/05/20 85220, J0702- Neuroma/Injection 04/03/20 28068, J0702- Neuroma/Injection 01/22/20 18 Insurance Providers Payer Name Payer Address Payer Phone Subscriber Number Group Number Insured Name Patient Relationship to Insured Coverage Start Date Coverage End Date [employer] [address] [place] [address] [id number] Dayana Ugalde Self - patient is the insured Medical (General) History Medical History History ICD Code Back,Hip,and Knee pain Sciatica chronic sinusitis Chicken pox Surgical History Surgery Date(Month/Year) left shoulder rotator 4 yrs ago knee surgery, left 20 yrs ago hysterectomy 2 yrs ago left knee replacement 12/2022
--- NOTE | 2025-08-09 11:48 | MHC.OFFVIS ---
Intake Visit Reasons: right TKA DOS: 01/23/25 Intake Note: Dayana is a 60 year old female who presents with complaints of mild intermittent discomfort in her right knee after undergoing right total knee replacement surgery on 01/23/2025. The patient denies any fevers or chills. She continues with her home stretching program. She does plan to ski later this winter. Allergies Sulfa (Sulfonamide Antibiotics) Allergy (Severe, Verified 05/09/25 09:24) Anaphylaxis sulfamethoxazole (From Bactrim) Allergy (Severe, Verified 05/09/25 09:24) Anaphylaxis trimethoprim (From Bactrim) Allergy (Severe, Verified 05/09/25 09:24) Anaphylaxis Penicillins Allergy (Unknown, Verified 05/09/25 09:24) Childhood allergy, GI Upset gluten Adverse Reaction (Mild, Verified 05/09/25 09:24) Rash Medication List - Last Reconciled 08/09/25 by Bryn Amado MD acetaminophen ER (Tylenol Arthritis Pain) 650 mg PO Q12H PRN albuterol sulfate 90 mcg/actuation 2 puffs inhalation Q6-8H PRN amlodipine 2.5 mg PO DAILY celecoxib (Celebrex) 200 mg PO DAILY PRN cholecalciferol (vitamin D3) (Vitamin D3) 25 mcg PO DAILY clindamycin HCl 600 mg (2 x 300 mg) PO ONCE gabapentin 400 mg PO BID gabapentin 100 mg PO BID PRN owlyzzjgbgz-zwstkasqj-iyn C-Mn 500-400 mg (Glucosamine Chondroitin Maximum Strength) 1 cap PO DAILY ytdobbtj-qng-tkix-FA-vit K-lut 8 mg iron-400 mcg-50 mcg (Centrum Silver Women) 1 tab PO DAILY omeprazole 20 mg PO BID PRN trazodone 25 mg PO BEDTIME valacyclovir 500 mg PO TID PRN vitamin B complex 1 tab PO DAILY walker Folding front wheeled walker zinc acetate 25 mg PO DAILY PFSH Medical History (Updated 01/27/25 @ 00:00 by Background Dayanira) Asthma Osteoarthritis GERD (gastroesophageal reflux disease) Jaundice SOB (shortness of breath) Prophylactic antibiotic IBS (irritable bowel syndrome) Insomnia Hx of cold sores Generalized anxiety disorder HTN (hypertension) Endometriosis Back pain Chronic eczema Cervical spondylosis Allergic rhinitis Surgical History (Updated 01/27/25 @ 00:00 by Background Dagogoon) History of arthroscopy of right shoulder (~2022) Hx of rotator cuff surgery History of partial hysterectomy H/O colonoscopy Hx of total knee arthroplasty Social History Household Members: Spouse Housing: House Are you a primary team primary care physician to a significant other at home: No Do you presently have visiting nurse or other home services: No Patient Tobacco Use Status: Never used Tobacco service: No Physical Exam Extrem Other: Right knee examination shows that the surgical incision is well healed, no erythema, full active extension and flexion to 120 degrees, her patella tracks well Results Reviewed Results Reviewed: X-rays of the patient's right knee show a total knee arthroplasty in good position with no signs of loosening, no acute bony abnormalities Assessment & Plan Assessment & Plan (1) Right knee pain: Code(s): M25.561 - Pain in right knee Category: Medical Plan Ms. Ugalde continues to do well after undergoing right total knee replacement surgery on 01/23/2025. She will continue with her physical therapy exercises. She does know to take antibiotics before any dental work. She will contact me prior to her follow-up appointment in 3 months should any questions or concerns arise. Feel free to call me at any time should questions regarding her orthopedic management arise. I spent 22 minutes in reviewing the patient's records and imaging studies, seeing the patient and documenting in the medical record. Orders: Orders XR knee RT 3V 08/09/25 M25.561 - Pain in right knee Coding Level of Care Code Est Pt Level 3 (95335) Add On Problem Visit Only Diagnoses Right knee pain M25.561
== END 2025-08-09 12:11 | disposition home or self-care (01) ==
LOC: HO.HOS 11:39
PROVIDERS: Visit Provider Orthopaedic Surgery
DX: M25.561 Pain in right knee (principal); Z96.651 Presence of right artificial knee joint
CPT/HCPCS: 99213; G2211

== ENCOUNTER → 2025-08-09 11:40 | Outpatient (BNV) | payer OTHER, SELFPAY | PROVIDERS: Visit Provider Radiology Diagnostic Ultrasound | DX: M25.561 Pain in right knee (principal) | CPT/HCPCS: 73562 ==